=== PATIENT | female | born 1995 | race Two or more races ===

== ENCOUNTER 2020-08-18 09:11 | Emergency (ER) | payer OTHER, SELFPAY ==
[2020-08-18 09:42] VITALS: BP 125/61; PULSE 100; RESP 16; TEMP 37.1; O2SAT 100; BMI 22.8
--- NOTE | 2020-08-18 09:49 | ED_ITS ---
HPI - General Adult General Chief complaint: General Medical Stated complaint: drain removal Time Seen by Provider: 08/18/20 09:46 Source: patient Mode of arrival: ambulatory Limitations: no limitations History of Present Illness HPI narrative: Patient had jarred rose 10 days ago at in [place] comes here for get the drain removed as the drainage is very minimal now and patient spoke to the surgeon advised to have drain removed patient denies any fever or chills wounds look healthy otherwise Related Data Allergies Allergy/AdvReac Type Severity Reaction Status Date / Time No Known Allergies Allergy Unverified 04/10/20 17:25 Review of Systems Review of Systems: Constitutional : No Weight loss, No Fever, No Chills ENT/Mouth : No sore throat, No Rhinorrhea Eyes: No Eye Pain, No Swelling Cardiovascular : No Chest Pain, no palpitations Respiratory : No Cough, No Sputum, no shortness of breath Gastrointestinal : no Nausea, No Vomiting, No Diarrhea, No abdominal Pain, no black stools Genitourinary : No Dysuria, No Urinary Frequency Musculoskeletal : No joint pain, No Myalgias, No Joint Swelling Skin : No Skin Lesions, No rash Neuro : No Weakness, No Numbness, No Dizziness, No Headache Psych : No Anxiety/Panic, No Depression Heme/Lymph: No Bruising, No Lymphadenopathy Endocrine : No Polyuria, No Polydipsia All other systems reviewed and are negative [facility] Past Medical History Surgical History S/P abdominoplasty Social History Social History Smoked in Last 30 Days: No Use of substances other than those prescribed or required for medical reasons: No Advance Directives: No Advance Directives Information Provided: No Physical Exam Vital Signs: Vital Signs: Last Vital Signs Temp 98.8 F 08/18/20 09:42 Pulse 100 08/18/20 09:42 Resp 16 08/18/20 09:42 BP 125/61 08/18/20 09:42 Pulse Ox 100 08/18/20 09:42 Body Mass Index 22.8 Appearance: Alert. Oriented X3. No acute distress. Eyes: Pupils equal, round and reactive to light. ENT: Pharynx normal. Neck: Normal inspection. Neck supple. CVS: Normal heart rate and rhythm. Pulses normal. Respiratory: No respiratory distress. Breath sounds normal. Abdomen: Soft and nontender. Drain present bilaterally on the lower abdomen area with minimal secretions Bowel sounds are present, no mass palpable, no CVA tenderness Skin: Skin warm and dry. Normal skin color. Normal skin turgor. Extremities: No lower extremity edema. Neuro: Oriented X 3. No motor deficit. No sensory deficit. Course Course Course Narrative: Drains were removed easily after removing the sutures wound looks healthy no significant drainage Discharge Plan Discharge Clinical Impression: Encounter for postoperative wound care Patient Disposition: Home, Self-Care Instructions: Care For Your Stitches (ED) Additional Instructions: Local care as advised apply dressing for drainage follow-up with your surgeon
--- NOTE | 2020-08-18 10:03 | PC.NURSE ---
DR JIMÉNEZ AT BEDSIDE AFTER SPEAKING WITH SURGEON RE: DRAIN REMOVAL
== END 2020-08-18 10:29 | disposition home or self-care (01) ==
PROVIDERS: Emergency Provider Internal Medicine; PCP Internal Medicine
DX: Z48.03 Encounter for change or removal of drains (principal); Z48.02 Encounter for removal of sutures
CPT/HCPCS: 99283

== ENCOUNTER 2021-01-27 09:46 | Emergency (ER) | payer OTHER, SELFPAY ==
--- NOTE | ~2021-01-27 | XR_ITS ---
EXAMINATION: XR CHEST CLINICAL INFORMATION: Chest pain COMPARISON: Previous chest x-ray October 2018 TECHNIQUE: Frontal view of the chest was obtained. FINDINGS: No significant abnormality is noted involving the heart, lungs, mediastinum, bony thorax or soft tissues. XR/XR chest 1V IMPRESSION: Unremarkable examination.
[2021-01-27 10:29] VITALS: BP 95/60; PULSE 89; RESP 18; TEMP 36.6; O2SAT 100; BMI 26.5
--- NOTE | 2021-01-27 11:02 | ED.ABDPAIN ---
HPI - Abdominal Pain General Chief Complaint: Abdominal Pain Stated Complaint: epigastric pain Time Seen by Provider: 01/27/21 11:02 Source: patient Mode of arrival: ambulatory Limitations: no limitations Related Data Previous Rx's Medication Instructions Recorded cephalexin 750 mg capsule 750 mg PO BID #14 cap 11/04/20 cromolyn 4 % eye drops 1 drp OPHTHALMIC (EYE) QID #10 ml 11/11/20 Allergies Allergy/AdvReac Type Severity Reaction Status Date / Time No Known Allergies Allergy Unverified 04/10/20 17:25 Physical Exam Vital Signs: Vital Signs: Last Vital Signs Temp 98 F 01/27/21 10:29 Pulse 89 01/27/21 10:29 Resp 18 01/27/21 10:29 BP 95/60 01/27/21 10:29 Pulse Ox 100 01/27/21 10:29 Body Mass Index 26.5 Discharge Plan Discharge Prescriptions: No Action cephalexin 750 mg capsule 750 mg PO BID Qty: 14 RF: 0 cromolyn 4 % drops 1 drp ophthalmic (eye) QID Qty: 10 RF: 2 PMFSH Past Medical History Surgical History S/P abdominoplasty Social History Social History Patient : No
--- NOTE | 2021-01-27 11:11 | ECG_ITS ---
Test Reason : ABDOMINAL PAIN Blood Pressure : / mmHG Vent. Rate : 087 BPM Atrial Rate : 087 BPM P-R Int : 140 ms QRS Dur : 074 ms QT Int : 376 ms P-R-T Axes : 052 064 043 degrees QTc Int : 452 ms Normal sinus rhythm Normal ECG No significant changes when compared with the previous EKG of 12 nov 2018 Referred By: Lina Bergeron Electronically Signed By:LUDA DEE
--- NOTE | 2021-01-27 11:20 | ED.CHESTPAIN ---
HPI - Chest Pain General Chief Complaint: Abdominal Pain Stated Complaint: epigastric pain Time Seen by Provider: 01/27/21 11:03 Source: patient Mode of arrival: ambulatory Limitations: no limitations History of Present Illness HPI narrative: not on OCPs has IUD in MD complaint: chest pain Onset (ago): day(s) (yesterday but has had it in the past) Timing of current episode: constant Prior episodes: Yes Onset: during rest and during exertion Pain location: left chest Pain radiation: none Severity: moderate Quality: sharp Relieving factors: remaining still Exacerbating factors: inspiration, palpation and movement Treatment prior to arrival: none Related Data Previous Rx's Medication Instructions Recorded cephalexin 750 mg capsule 750 mg PO BID #14 cap 11/04/20 cromolyn 4 % eye drops 1 drp OPHTHALMIC (EYE) QID #10 ml 11/11/20 cyclobenzaprine 10 mg PO TID PRN #14 tab 01/27/21 prednisone 40 mg PO DAILY 5 Days #10 tab 01/27/21 Allergies Allergy/AdvReac Type Severity Reaction Status Date / Time No Known Allergies Allergy Unverified 04/10/20 17:25 Review of Systems Review of Systems: Constitutional : No Weight loss, No Fever, No Chills ENT/Mouth : No sore throat, No Rhinorrhea Eyes: No Eye Pain, No Swelling Cardiovascular : pos Chest Pain, no SOB, no Dyspnea on Exertion, No Orthopnea, No Edema, No Palpitations Respiratory : No Cough, No Sputum Gastrointestinal : no Nausea, No Vomiting, No Diarrhea, No abdominal Pain, No Hematochezia, No Melena Genitourinary : No Dysuria, No Urinary Frequency Musculoskeletal : No joint pain, No Myalgias, No Joint Swelling Skin : No Skin Lesions, No rash Neuro : No Weakness, No Numbness, No Dizziness, No Headache Psych : No Anxiety/Panic, No Depression Heme/Lymph: No Bruising, No Lymphadenopathy Endocrine : No Polyuria, No Polydipsia All other systems reviewed and are negative [facility] Past Medical History Attestation statement: The following information was validated with the patient. Medical History Low blood pressure Surgical History S/P abdominoplasty Social History Social History (Updated 01/27/21 @ 11:39 by Lina Bergeron DO) Alcohol intake: never Patient Tobacco Use Status: Never used Tobacco Use of substances other than those prescribed or required for medical reasons: No Advance Directives: Yes Advance Directives Information Provided: Yes Advance Directives on File: No Patient : No Physical Exam Vital Signs: Vital Signs: Last Vital Signs Temp 98.6 F 01/27/21 13:11 Pulse 84 01/27/21 13:11 Resp 18 01/27/21 13:11 BP 106/72 01/27/21 13:11 Pulse Ox 100 01/27/21 13:11 Body Mass Index 26.5 Appearance: Alert. Oriented X3. No acute distress. Eyes: Pupils equal, round and reactive to light. ENT: Pharynx normal. Neck: Normal inspection. Neck supple. CVS: Normal heart rate and rhythm. Pulses normal. Chest: ttp reproduces pain with lower left anterior ribs and left costochondral junction at sternum, pain also with ROM of L arm Respiratory: No respiratory distress. Breath sounds normal. Abdomen: Soft and nontender. bilateral femoral pulses intact Skin: Skin warm and dry. Normal skin color. Normal skin turgor. Extremities: No lower extremity edema. No calf ttp Neuro: Oriented X 3. No motor deficit. No sensory deficit. Course Course Course Narrative: normal workup negative trop and nonischemic trop at 24 hour luis MDM - Chest Pain MDM Narrative Medical decision making narrative: 25 yo female no sig PMH no cardiac risk factors PERC negative symmetric femoral pulses here with 1 day of chest pain that is reproduceable in nature suspect costochondritis at this time will need troponin x 1, EKG, CXR - seems atypical for ACS, doubt PE PERC negative, given symmetric pulses and pain reproduceable dissection unlikely - dispo per results and findings. Lab Data Result diagrams: 01/27/21 12:57 01/27/21 13:09 Labs: Lab Results 01/27/21 01/27/21 01/27/21 Range/Units 12:27 12:57 12:57 WBC 7.9 (4.8-10.8) X10*3/uL RBC 4.58 (4.20-5.50) X10*6/uL Hgb 12.5 (12.0-16.0) g/dl Hct 39.0 (37-47) % MCV 85.2 (80-98) fL MCH 27.3 (27.0-33.0) pg MCHC 32.1 (31.0-35.0) g/dl RDW 14.6 (11.0-16.0) % Plt Count 303 (160-400) X10*3/uL MPV 10.8 (9.4-12.3) fL Immature Gran % (Auto) 0.3 (0.0-0.4) % Neut % (Auto) 54.9 (45-73) % Lymph % (Auto) 37.4 (20-40) % [place] % (Auto) 5.6 (2-11) % Eos % (Auto) 1.5 (0-4) % Baso % (Auto) 0.3 (0-2) % Lymph # (Auto) 3.0 (1.2-4.9) X10*3/uL [place] # (Auto) 0.4 (0.1-1.2) X10*3/uL Eos # (Auto) 0.1 (0.0-0.4) X10*3/uL Baso # (Auto) 0.0 (0.0-0.2) X10*3/uL Abs Immat Gran (auto) 0.02 (0.00-0.03) X10*3/uL Absolute Neuts (auto) 4.4 (2.0-8.3) X10*3/uL Absolute Nucleated RBC 0.000 (0.0-0.012) X10*3/uL Nucleated RBC % (auto) 0.0 (0.0-0.2) /100WBC Sodium (135-145) mmol/L Potassium (3.3-5.1) mmol/L Chloride (96-108) mmol/L Carbon Dioxide (22-29) mmol/L Anion Gap (12-20) BUN (9-16) mg/dL Creatinine (0.5-1.4) mg/dL Estim Creat Clear Calc Estimated GFR Random Glucose (60-115) mg/dL Calcium (8.4-10.2) mg/dL Troponin I High Sens < 3.5 (<3.5-17.0) ng/L COVID-19 (SOLA) Negative (Negative) COVID-19 Clin Com See Note 01/27/21 Range/Units 13:09 WBC (4.8-10.8) X10*3/uL RBC (4.20-5.50) X10*6/uL Hgb (12.0-16.0) g/dl Hct (37-47) % MCV (80-98) fL MCH (27.0-33.0) pg MCHC (31.0-35.0) g/dl RDW (11.0-16.0) % Plt Count (160-400) X10*3/uL MPV (9.4-12.3) fL Immature Gran % (Auto) (0.0-0.4) % Neut % (Auto) (45-73) % Lymph % (Auto) (20-40) % [place] % (Auto) (2-11) % Eos % (Auto) (0-4) % Baso % (Auto) (0-2) % Lymph # (Auto) (1.2-4.9) X10*3/uL [place] # (Auto) (0.1-1.2) X10*3/uL Eos # (Auto) (0.0-0.4) X10*3/uL Baso # (Auto) (0.0-0.2) X10*3/uL Abs Immat Gran (auto) (0.00-0.03) X10*3/uL Absolute Neuts (auto) (2.0-8.3) X10*3/uL Absolute Nucleated RBC (0.0-0.012) X10*3/uL Nucleated RBC % (auto) (0.0-0.2) /100WBC Sodium 138 (135-145) mmol/L Potassium 4.0 (3.3-5.1) mmol/L Chloride 107 (96-108) mmol/L Carbon Dioxide 22 (22-29) mmol/L Anion Gap 13 (12-20) BUN 12 (9-16) mg/dL Creatinine 0.68 (0.5-1.4) mg/dL Estim Creat Clear Calc 110.5 Estimated GFR > 60 Random Glucose 73 (60-115) mg/dL Calcium 9.9 (8.4-10.2) mg/dL Troponin I High Sens (<3.5-17.0) ng/L COVID-19 (SOLA) (Negative) COVID-19 Clin Com ECG Data ECG #1: Attestation: I personally reviewed and interpreted this ECG as follows: ECG interpretation date: 01/27/21 ECG interpretation time: 12:01 Interpretation: Rate: 87 Rhythm: NSR Dickinson: normal Normal P waves. Normal COLIN. Normal QRS complex. ST T wave : normal no RYAN qTC: normal prior studies: no acute ischemia The study has been interpreted contemporaneously by me. . Scores Additional Scores PERC Score: Score: 0 Discharge Plan Discharge Clinical Impression: Acute costochondritis Patient Disposition: Home, Self-Care Instructions: Costochondritis (ED) Additional Instructions: return to ED for any worsening symptoms or concerns NEGATIVE COVID TEST Prescriptions: New cyclobenzaprine 10 mg tablet 10 mg PO TID PRN (Reason: muscle spasm) Qty: 14 RF: 0 prednisone 20 mg tablet 40 mg PO DAILY 5 Days Qty: 10 RF: 0 No Action cephalexin 750 mg capsule 750 mg PO BID Qty: 14 RF: 0 cromolyn 4 % drops 1 drp ophthalmic (eye) QID Qty: 10 RF: 2 Referrals: Elaina Lucero MD [Primary Care Provider] - 2 days Stand Alone Forms: Work/School Release
[2021-01-27 12:49] LABS: COVID-19 Test Negative (Negative); IDNOW Serial# 9DD0AD1C
[2021-01-27 13:02] LABS: MANUAL DIFF FLAG NO
[2021-01-27 13:05] LABS: Basophils Percent Auto 0.3 % (0-2); Eosinophils Absolute Auto 0.1 X10*3/uL (0.0-0.4); Eosinophils Percent Auto 1.5 % (0-4); Hemoglobin 12.5 g/dl (12.0-16.0); Imm Gran Abs Auto 0.02 X10*3/uL (0.00-0.03); Imm Gran Pct Auto 0.3 % (0.0-0.4); Lymphocytes Percent Auto 37.4 % (20-40); Mean Corpuscular HGB Conc 32.1 g/dl (31.0-35.0); Mean Corpuscular Hemoglobin 27.3 pg (27.0-33.0); Mean Corpuscular Volume 85.2 fL (80-98); Mean Platelet Volume 10.8 fL (9.4-12.3); Monocytes Absolute Auto 0.4 X10*3/uL (0.1-1.2); Monocytes Percent Auto 5.6 % (2-11); Neutrophils Absolute Auto 4.4 X10*3/uL (2.0-8.3); Neutrophils Percent Auto 54.9 % (45-73); Platelet Count 303 X10*3/uL (160-400); Red Blood Count 4.58 X10*6/uL (4.20-5.50); Red Cell Distribution Width 14.6 % (11.0-16.0); White Blood Count 7.9 X10*3/uL (4.8-10.8)
[2021-01-27 13:11] VITALS: BP 106/72; PULSE 84; RESP 18; TEMP 37; O2SAT 100
--- NOTE | 2021-01-27 13:14 | PC.NURSE ---
patient a&ox3, classroom monitor nsr 70s, vss, pt c/o lt chest area pain 05/03, pt states yesterday she had nausea and diarrhea as well, currently denies nausea. pt difficult stick- labs drawn, will continue to monitor.
[2021-01-27 13:45] LABS: Anion Gap 13 (12-20); Blood Urea Nitrogen 12 mg/dL (9-16); Calcium 9.9 mg/dL (8.4-10.2); Carbon Dioxide 22 mmol/L (22-29); Chloride 107 mmol/L (96-108); Creatinine Clr Calc Pharmacy 110.5; Estimated Glomerular Filt Rate > 60; Glucose Random 73 mg/dL (60-115); Sodium 138 mmol/L (135-145)
[2021-01-27 13:47] LABS: Troponin-I High Sensitivity < 3.5 ng/L (<3.5-17.0)
== END 2021-01-27 14:08 | disposition home or self-care (01) ==
PROVIDERS: Emergency Provider Emergency Medicine; PCP Internal Medicine
DX: M94.0 Chondrocostal junction syndrome [Tietze] (principal); Z20.822 Contact with and (suspected) exposure to COVID-19
CPT/HCPCS: 36415; 71045; 80048; 84484; 85025; 87635; 93005; 99283; 99284

== ENCOUNTER 2021-12-06 07:39 | Emergency (ER) | payer OTHER, SELFPAY ==
--- NOTE | ~2021-12-06 | CT_ITS ---
EXAMINATION: CT ABDOMEN AND PELVIS WITHOUT CONTRAST CLINICAL INFORMATION: Nausea and vomiting. Diffuse abdominal pain. COMPARISON: None TECHNIQUE: Multidetector volumetric imaging was performed from the superior aspect of the liver through the pubic symphysis. Sagittal and coronal reformatted images were obtained on the technologist's workstation. This CT examination was performed using dose optimization techniques as appropriate, variously including the following: *Automated exposure control *Adjustment of mA and/or kV according to patient size (this includes techniques or standardized protocols for targeted exams where dose is matched to indication/reason for exam; i.e. extremities or head) *Use of iterative reconstruction technique DLP: 439 mGy-cm FINDINGS: LUNG BASES: The lung bases are clear. The heart size is normal. LIVER, GALLBLADDER, AND BILIARY TREE: The liver is normal in size, shape, and attenuation. No focal hepatic lesion or biliary ductal dilatation is present. The gallbladder is unremarkable with no evidence of radiopaque gallstones, gallbladder wall thickening, or obvious pericholecystic inflammatory changes. PANCREAS: Unremarkable. SPLEEN: Unremarkable. ADRENAL GLANDS: Unremarkable. KIDNEYS AND URETERS: The kidneys are normal in size, shape, and attenuation. No hydronephrosis, hydroureter, or calculi seen. No perinephric stranding. BLADDER: Unremarkable. GASTROINTESTINAL TRACT: There is scattered stool in the colon without colonic distention. No mural thickening, free air or free fluid seen. The small bowel loops are normal caliber. No inflammatory process seen. The appendix is normal caliber. ABDOMINAL WALL: There is a small umbilical hernia containing fat. LYMPH NODES: Normal. VASCULAR: Unremarkable. PELVIC VISCERA: The uterus is retroverted with an IUD in the endometrial canal in correct position. There is fat stranding in bilateral ischiorectal fossa with peculiar central hypodensity and surrounding capsule likely fat necrosis OSSEOUS STRUCTURES: No lytic or sclerotic process seen. CT/CT abdomen pelvis wo con IMPRESSION: No acute intra-abdominal process seen. Mild constipation. Bilateral ischiorectal fat stranding question fat necrosis versus old inflammatory process. Correlate with clinical exam. Fleischner guidelines were followed.
[2021-12-06 07:43] VITALS: BP 114/78; PULSE 138; RESP 19; TEMP 37.5; O2SAT 97; BMI 25.6
[2021-12-06 08:11] LABS: COVID-19 Test Negative (Negative); IDNOW Serial# 16C4AD1C; Influenza A Negative (Negative); Influenza B2 Negative (Negative)
--- NOTE | 2021-12-06 11:05 | ED_ITS ---
HPI - General Adult General Chief complaint: General Medical Stated complaint: abd pain headache fever Time Seen by Provider: 12/06/21 11:05 Source: patient Mode of arrival: ambulatory Limitations: no limitations History of Present Illness HPI narrative: 26 y/o female with history of constipation, history of tummy tuck in July who is presenting to the ER with nausea, vomiting and upper abdominal pain as well a s nasal congestion and headache that started yesterday. She reports aching and cramping abdominal pain that comes and goes. She last vomited last night and is no longer nauseated. She denies fever, chills, cough, or known sick contacts. MD complaint: vomiting, upper abdominal pain Onset (ago): day(s) (1) Location: abdomen Radiation: non-radiation Severity: moderate Severity scale (1-10): 5 Quality: aching Pain Consistency: intermittent Relieving factors: none Exacerbating factors: none Associated symptoms: headaches, loss of appetite, malaise and nausea/vomiting Treatments prior to arrival: none Related Data Previous Rx's Medication Instructions Recorded cephalexin 750 mg capsule 750 mg PO BID #14 cap 11/04/20 cromolyn 4 % eye drops 1 drp OPHTHALMIC (EYE) QID #10 ml 11/11/20 cyclobenzaprine 10 mg tablet 10 mg PO TID PRN #14 tab 01/27/21 prednisone 20 mg tablet 40 mg PO DAILY 5 Days #10 tab 01/27/21 docusate sodium 100 mg capsule 100 mg PO BID #30 cap 12/06/21 (Colace) ondansetron 4 mg disintegrating 4 mg PO Q8H PRN #10 tab 12/06/21 tablet Allergies Allergy/AdvReac Type Severity Reaction Status Date / Time No Known Allergies Allergy Unverified 04/10/20 17:25 Review of Systems Review of Systems: Constitutional: No Fever, No Chills ENT/Mouth: No sore throat, No Rhinorrhea, + Nasal congestion Cardiovascular: No Chest Pain, No SOB, No Orthopnea, No Edema Respiratory: No Cough, No Sputum, No Wheezing, No dyspnea Gastrointestinal: + Nausea, + Vomiting, No Diarrhea, + abdominal Pain, No Hematochezia, No Melena Genitourinary: No Dysuria, No Urinary Frequency, No Hematuria Musculoskeletal: No joint pain, No Myalgias Skin: No Skin Lesions, No rash Neuro: + Weakness, No Numbness, No Dizziness, + Headache Psych: No Anxiety/Panic, No Depression Heme/Lymph: No Bruising, No Lymphadenopathy PMFSH Past Medical History Medical History Low blood pressure Surgical History S/P abdominoplasty Social History Social History (Updated 01/27/21 @ 11:39 by Lina Bergeron DO) Alcohol intake: never Patient Tobacco Use Status: Never used Tobacco Advance Directives: No Advance Directives Information Provided: Yes Physical Exam ED Vital Signs: Vital Signs - 24 hr 12/06/21 07:43 12/06/21 11:06 12/06/21 14:29 Temperature 99.5 F 98.4 F Pulse Rate 138 H 129 H Respiratory Rate 19 16 18 Blood Pressure 114/78 133/55 L Pulse Oximetry 97 100 12/06/21 14:33 Temperature Pulse Rate 109 H Respiratory Rate 17 Blood Pressure 100/63 Pulse Oximetry 98 BMI result Body Mass Index 25.6 Appearance: Alert. Oriented X3. No acute distress. Eyes: Pupils equal, round and reactive to light. ENT: Pharynx normal. Nasal congestion with clear discharge Neck: Normal inspection. Neck supple. CVS: Normal heart rate and rhythm. Pulses normal. Respiratory: No respiratory distress. Breath sounds normal. Abdomen: Soft with mild epigastric tenderness, no rebound or guarding, no RUQ tenderness, normal +BS x4 Skin: Skin warm and dry. Normal skin color. Normal skin turgor. No rashes. Extremities: No lower extremity edema. Neuro: Oriented X 3. Grossly normal. Course Course Course Narrative: 26 y/o female presents to the ER with N/V abdominal pain and congestion x1 day. She is tachycardic on arrival. No chest pain or SOB, nontoxic appearing. Will pl an to check basic labs, hydrate and treat headache with Toradol. will check Flu and COVID as her symptoms seem to be viral. Reevaluation(s) Reevaluation #1: Who did flu were negative. Lab [place] [address]. Urinalysis negative for infection. Will get CT scan of the abdomen for further evaluation. Reevaluation #2: CT of the abdomen showing no acute intra-abdominal process, mild constipation. She is tolerating p.o. and feeling better. Heart rate improved to low in 100s. She is stable for discharge home with supportive care, likely viral gastroenteritis. Medical Decision Making Lab Data Result diagrams: 12/06/21 11:37 12/06/21 11:37 Labs: Lab Results 12/06/21 12/06/21 12/06/21 Range/Units 07:51 07:51 11:37 WBC 20.2 H (4.8-10.8) X10*3/uL RBC 4.73 (4.20-5.50) X10*6/uL Hgb 12.9 (12.0-16.0) g/dl Hct 39.5 (37.0-47.0) % MCV 83.5 (80.0-98.0) fL MCH 27.3 (27.0-33.0) pg MCHC 32.7 (31.0-35.0) g/dl RDW 14.4 (11.0-16.0) % Plt Count 282 (160-400) X10*3/uL MPV 10.6 (9.4-12.3) fL Immature Gran % (Auto) 0.4 (0.0-0.4) % Neut % (Auto) 90.8 H (45-73) % Lymph % (Auto) 4.5 L (20-40) % [place] % (Auto) 3.9 (2-11) % Eos % (Auto) 0.2 (0-4) % Baso % (Auto) 0.2 (0-2) % Lymph # (Auto) 0.9 L (1.2-4.9) X10*3/uL [place] # (Auto) 0.8 (0.1-1.2) X10*3/uL Eos # (Auto) 0.0 (0.0-0.4) X10*3/uL Baso # (Auto) 0.0 (0.0-0.2) X10*3/uL Abs Immat Gran (auto) 0.09 H (0.00-0.03) X10*3/uL Absolute Neuts (auto) 18.4 H (2.0-8.3) x10*3/uL Absolute Nucleated RBC 0.000 (0.0-0.012) X10*3/uL Nucleated RBC % (auto) 0.0 (0.0-0.2) /100WBC Smear Tech's Comments VERIFIED Sodium (135-145) mmol/L Potassium (3.3-5.1) mmol/L Chloride (96-108) mmol/L Carbon Dioxide (22-29) mmol/L Anion Gap (12-20) BUN (9-16) mg/dL Creatinine (0.5-1.4) mg/dL Estim Creat Clear Calc Estimated GFR Random Glucose (60-115) mg/dL Calcium (8.4-10.2) mg/dL Total Bilirubin (0.0-1.0) mg/dL AST (5-31) U/L ALT (0-31) U/L Alkaline Phosphatase (39-117) U/L Total Protein (6.5-8.0) g/dL Albumin (3.5-5.0) g/dL Beta HCG, Quant mIU/mL Urine Color Urine Appearance Urine pH (5.0-8.0) Ur Specific [place] (1.005-1.025) Urine Protein (NEG-TRACE) MG/DL Urine Glucose (UA) (NEG) MG/DL Urine Ketones (NEG) MG/DL Urine Blood (NEG) Urine Nitrite (NEG) Ur Leukocyte Esterase (NEG) COVID-19 ([facility]A) Negative (Negative) COVID-19 Clin Com See Note Influenza Type A (KIZZY) Negative (Negative) Influenza Type B (KIZZY) Negative (Negative) Influenza A & B Note See Note 12/06/21 12/06/21 Range/Units 11:37 13:31 WBC (4.8-10.8) X10*3/uL RBC (4.20-5.50) X10*6/uL Hgb (12.0-16.0) g/dl Hct (37.0-47.0) % MCV (80.0-98.0) fL MCH (27.0-33.0) pg MCHC (31.0-35.0) g/dl RDW (11.0-16.0) % Plt Count (160-400) X10*3/uL MPV (9.4-12.3) fL Immature Gran % (Auto) (0.0-0.4) % Neut % (Auto) (45-73) % Lymph % (Auto) (20-40) % [place] % (Auto) (2-11) % Eos % (Auto) (0-4) % Baso % (Auto) (0-2) % Lymph # (Auto) (1.2-4.9) X10*3/uL [place] # (Auto) (0.1-1.2) X10*3/uL Eos # (Auto) (0.0-0.4) X10*3/uL Baso # (Auto) (0.0-0.2) X10*3/uL Abs Immat Gran (auto) (0.00-0.03) X10*3/uL Absolute Neuts (auto) (2.0-8.3) x10*3/uL Absolute Nucleated RBC (0.0-0.012) X10*3/uL Nucleated RBC % (auto) (0.0-0.2) /100WBC Smear Tech's Comments Sodium 136 (135-145) mmol/L Potassium 4.0 (3.3-5.1) mmol/L Chloride 105 (96-108) mmol/L Carbon Dioxide 23 (22-29) mmol/L Anion Gap 12 (12-20) BUN 10 (9-16) mg/dL Creatinine 0.74 (0.5-1.4) mg/dL Estim Creat Clear Calc 99.0 Estimated GFR > 60 Random Glucose 106 (60-115) mg/dL Calcium 9.7 (8.4-10.2) mg/dL Total Bilirubin 0.5 (0.0-1.0) mg/dL AST 20 (5-31) U/L ALT 24 (0-31) U/L Alkaline Phosphatase 65 (39-117) U/L Total Protein 7.8 (6.5-8.0) g/dL Albumin 4.4 (3.5-5.0) g/dL Beta HCG, Quant < 2 mIU/mL Urine Color YELLOW Urine Appearance HAZY Urine pH 6.0 (5.0-8.0) Ur Specific [place] 1.025 (1.005-1.025) Urine Protein NEG (NEG-TRACE) MG/DL Urine Glucose (UA) NEG (NEG) MG/DL Urine Ketones NEG (NEG) MG/DL Urine Blood NEG (NEG) Urine Nitrite NEG (NEG) Ur Leukocyte Esterase NEG (NEG) COVID-19 (SOLA) (Negative) COVID-19 Clin Com Influenza Type A (KIZZY) (Negative) Influenza Type B (KIZZY) (Negative) Influenza A & B Note Critical Care Time Critical Care Time Critical Care Time: No Discharge Plan Discharge Clinical Impression: Viral illness, Constipation Patient Disposition: Home, Self-Care Instructions: Constipation (DC), Viral Syndrome (ED) Additional Instructions: You lab workup today showed elevated white blood cell count which can be due to your vomiting. Your urine test was negative for infection and . You most likely have a viral GI bug also known as gastroenteritis. Treatment is supportive care, symptoms usually resolve on their own in 48-72 hours. Recommend rest and plenty of oral hydration. Stick to a bland diet like soup and toast while you are not feeling well. Take the prescribed medication as needed for nausea. Recommend over the counter Miralax daily. Follow up with your doctor as needed. If you develop new or worsening symptoms call 911 or come back to the ER for further evaluation. Prescriptions: New ondansetron 4 mg tablet,disintegrating 4 mg PO Q8H PRN (Reason: nausea and vomiting) Qty: 10 0RF docusate sodium [Colace] 100 mg capsule 100 mg PO BID Qty: 30 0RF No Action cephalexin 750 mg capsule 750 mg PO BID Qty: 14 0RF cromolyn 4 % drops 1 drp ophthalmic (eye) QID Qty: 10 2RF cyclobenzaprine 10 mg tablet 10 mg PO TID PRN (Reason: muscle spasm) Qty: 14 0RF prednisone 20 mg tablet 40 mg PO DAILY 5 Days Qty: 10 0RF
[2021-12-06 11:06] VITALS: BP 133/55; PULSE 129; RESP 16; TEMP 36.9; O2SAT 100
[2021-12-06 11:43] LABS: Basophils Percent Auto 0.2 % (0-2); Eosinophils Percent Auto 0.2 % (0-4); Hematocrit 39.5 % (37.0-47.0); Hemoglobin 12.9 g/dl (12.0-16.0); Imm Gran Abs Auto 0.09 X10*3/uL (0.00-0.03); Imm Gran Pct Auto 0.4 % (0.0-0.4); Lymphocytes Absolute Auto 0.9 X10*3/uL (1.2-4.9); Lymphocytes Percent Auto 4.5 % (20-40); MANUAL DIFF FLAG SCAN; Mean Corpuscular HGB Conc 32.7 g/dl (31.0-35.0); Mean Corpuscular Hemoglobin 27.3 pg (27.0-33.0); Mean Corpuscular Volume 83.5 fL (80.0-98.0); Mean Platelet Volume 10.6 fL (9.4-12.3); Monocytes Absolute Auto 0.8 X10*3/uL (0.1-1.2); Monocytes Percent Auto 3.9 % (2-11); Neutrophils Absolute Auto 18.4 x10*3/uL (2.0-8.3); Neutrophils Percent Auto 90.8 % (45-73); Platelet Count 282 X10*3/uL (160-400); Red Blood Count 4.73 X10*6/uL (4.20-5.50); Red Cell Distribution Width 14.4 % (11.0-16.0); SCAN SMEAR FLAG 1; White Blood Count 20.2 X10*3/uL (4.8-10.8)
[2021-12-06] MEDS: 0.9 % Sodium Chloride 1,000 ML 999 ML IVCONT (11:50)
[2021-12-06 11:59] LABS: Alanine Aminotransferase 24 U/L (0-31); Albumin Level 4.4 g/dL (3.5-5.0); Alkaline Phosphatase 65 U/L (39-117); Anion Gap 12 (12-20); Aspartate Amino Transferase 20 U/L (5-31); Bilirubin Total 0.5 mg/dL (0.0-1.0); Blood Urea Nitrogen 10 mg/dL (9-16); Calcium 9.7 mg/dL (8.4-10.2); Carbon Dioxide 23 mmol/L (22-29); Chloride 105 mmol/L (96-108); Estimated Glomerular Filt Rate > 60; Glucose Random 106 mg/dL (60-115); Sodium 136 mmol/L (135-145); Total Protein 7.8 g/dL (6.5-8.0)
[2021-12-06 12:04] LABS: SLIDE REVIEW VERIFIED
[2021-12-06] MEDS: Ketorolac Tromethamine 30 MG/ML VIAL IVPUSH (12:07)
[2021-12-06 12:08] LABS: HCG Quantitative < 2 mIU/mL
[2021-12-06 13:37] LABS: Appearance Urine HAZY; Color Urine YELLOW; Glucose Urine UA NEG (NEG); Leukocyte Esterase Urine NEG (NEG); Nitrite Urine NEG (NEG); Specific Gravity - Urine 1.025 (1.005-1.025); Urine Blood NEG (NEG); Urine Ketones NEG (NEG); Urine Protein NEG (NEG-TRACE)
[2021-12-06 14:29] VITALS: RESP 18
[2021-12-06 14:33] VITALS: BP 100/63; PULSE 109; RESP 17; O2SAT 98
== END 2021-12-06 15:30 | disposition home or self-care (01) ==
PROVIDERS: Physician Assistant; Emergency Provider Emergency Medicine; PCP Psychiatry & Neurology Neurology
DX: B34.9 Viral infection, unspecified (principal); K59.00 Constipation, unspecified; Z20.822 Contact with and (suspected) exposure to COVID-19
CPT/HCPCS: 36415; 74176; 80053; 81003; 84702; 85025; 87502; 87635; 96361; 96374; 99284; J1885

== ENCOUNTER 2022-01-06 09:27 | Emergency (ER) | payer OTHER, SELFPAY ==
[2022-01-06 10:11] VITALS: BP 107/69; PULSE 108; RESP 19; TEMP 36.6; O2SAT 98; BMI 26.9
[2022-01-06 10:42] LABS: Appearance Urine HAZY; Color Urine YELLOW; Glucose Urine UA NEG (NEG); Leukocyte Esterase Urine TRACE (NEG); Nitrite Urine NEG (NEG); Specific Gravity - Urine >= 1.030 (1.005-1.025); UACC Culture Trigger NO; Urine Blood TRACE (NEG); Urine Ketones NEG (NEG); Urine Protein NEG (NEG-TRACE)
[2022-01-06 10:44] LABS: UPreg QC Valid YES; Urine Pregnancy NEGATIVE (NEGATIVE)
[2022-01-06 10:51] LABS: Bacteria Urine TRACE /LPF; IDNOW Serial# 08D9AD1C; RBC Urine 0-2 /HPF (0); Squamous Epithelial Cell Urine 1+ /LPF; Strep A Nucleic Acid Negative (Negative); UACC CULT YES
[2022-01-06 10:52] LABS: Mucus Urine 2+ /LPF
[2022-01-06 10:55] LABS: COVID-19 Test Negative (Negative); IDNOW Serial# 9DB6401D; Influenza A Negative (Negative); Influenza B2 Negative (Negative)
--- NOTE | 2022-01-06 11:28 | ED_ITS ---
HPI - General Adult General Chief complaint: General Medical Stated complaint: sore throat migraine back pain Time Seen by Provider: 01/06/22 11:19 Source: patient Mode of arrival: ambulatory Limitations: no limitations History of Present Illness HPI narrative: Patient presents to the emergency department for multiple complaints. She states that yesterday she was seen by her [employer] and was diagnosed with u rinary tract infection and yeast infection, was having fevers, she was given a prescription for Diflucan and Bactrim which she began yesterday. She states since last night she developed a headache, sore throat, and generalized body aches. Has not tried any [id number] medications for her symptoms. States that she has been vaccinated for COVID-19. Denies any known exposure. Denies vision changes, neck pain or stiffness, chest pain, palpitations or shortness of breath, difficulty breathing, nausea, vomiting, abdominal pain, hematuria, numbness or tingling of the extremities, generalized weakness. Related Data Previous Rx's Medication Instructions Recorded cephalexin 750 mg capsule 750 mg PO BID #14 caps 11/04/20 cromolyn 4 % eye drops 1 drp ophthalmic (eye) QID #10 mL 11/11/20 cyclobenzaprine 10 mg tablet 10 mg PO TID PRN muscle spasm #14 01/27/21 tabs prednisone 20 mg tablet 40 mg PO DAILY 5 days #10 tabs 01/27/21 docusate sodium 100 mg capsule 100 mg PO BID #30 caps 12/06/21 (Colace) ondansetron 4 mg disintegrating 4 mg PO Q8H PRN nausea and 12/06/21 tablet vomiting #10 tabs Allergies Allergy/AdvReac Type Severity Reaction Status Date / Time No Known Allergies Allergy Unverified 04/10/20 17:25 Review of Systems Review of Systems: Constitutional: Positive fever No weakness or fatigue. Skin: No rash or itching. ENT: Positive sore throat Cardiovascular: No chest pain, chest pressure or chest discomfort. No palpitations or pedal edema. Respiratory: No shortness of breath, cough or sputum production. Gastrointestinal: No anorexia, nausea, vomiting or diarrhea. No abdominal pain Genitourinary: Positive burning micturition. No urinary frequency or incontinence. Musculoskeletal: No muscle pain, back pain, joint pain or stiffness. Neurologic: Positive headache. No numbness. No tingling. Psychiatric: No depression or anxiety. Yes all other systems are reviewed and are negative [facility] Past Medical History Attestation statement: The following information was validated with the patient. Source: old records reviewed Medical History Low blood pressure Surgical History S/P abdominoplasty Social History Social History Alcohol intake: never Patient Tobacco Use Status: Never used Tobacco Advance Directives: No Advance Directives Information Provided: No Physical Exam ED Vital Signs: Vital Signs - 24 hr 01/06/22 10:11 Temperature 98 F Pulse Rate 108 H Respiratory Rate 19 Blood Pressure 107/69 Pulse Oximetry 98 Oxygen Delivery Method Room Air BMI result Body Mass Index 26.9 Vital signs have been reviewed as normal and appeared to be correct. Blood pressure normal.? Heart rate normal.? Respiration rate normal. Temperature normal.? Oxygen saturation normal. Appearance: Alert.?Oriented to person, place and time. No acute distress.?Normal affect. Eyes: Pupils equal, round and reactive to light.? ENT: Pharynx with mild erythema, no exudate, or adenopathy.??TM normal bilaterally. Neck: Normal inspection.? Neck supple.??Full AROM. No cervical adenopathy CVS: Heart sounds normal. Normal heart rate and rhythm.? Pulses normal.?? Respiratory: No respiratory distress.? Lung sounds clear to auscultation bilaterally?? Abdomen: Soft and non-tender. Normoactive bowel sounds. .?? Skin: Skin warm and dry.? Normal skin color.? ? Extremities: No lower extremity edema.?? Neuro: Moves all extremities spontaneously. Sensation intact bilaterally. No motor deficits. Ambulates with normal steady gait. Course Course Course Narrative: Patient is a 26-year-old female currently being treated for a urinary tract infection and vaginal yeast infection presenting to the emergency department with less than 1 day a viral symptoms including sore throat, body aches, and headache. COVID-19, influenza, and strep testing are negative. No meningismus. No neurological deficits. She is mildly tachycardic 108, afebrile. Has not trialed any [id number] medications. Suspect symptoms to be viral in nature, advised to repeat COVID testing in a couple of days should her symptoms persist. Advised Tylenol and ibuprofen to be used as needed for fever and pain, Chloraseptic throat spray and throat lozenges for sore throat. Discussed reasons return back to the emergency department. All questions were answered and she was discharged home in stable condition. Advised to follow-up with her primary care provider as needed Medical Decision Making Medical Records Medical records reviewed: Yes I reviewed the patient's medical records. Lab Data Lab results reviewed: Yes I reviewed the patient's lab results. Labs: Lab Results 01/06/22 01/06/22 01/06/22 Range/Units 10:27 10:27 10:27 Urine Color Urine Appearance Urine pH (5.0-8.0) Ur Specific [place] (1.005-1.025) Urine Protein (NEG-TRACE) MG/DL Urine Glucose (UA) (NEG) MG/DL Urine Ketones (NEG) MG/DL Urine Blood (NEG) Urine Nitrite (NEG) Ur Leukocyte Esterase (NEG) Urine RBC (0) /HPF Urine WBC (0-4) /HPF Ur Squamous Epith Cells /LPF Urine Bacteria /LPF Urine Mucus /LPF Urine Test (NEGATIVE) COVID-19 (SOLA) Negative (Negative) COVID-19 Clin Com See Note Influenza Type A (KIZZY) Negative (Negative) Influenza Type B (KIZZY) Negative (Negative) Influenza A & B Note See Note S. pyogenes GrpA KIZZY Negative (Negative) 01/06/22 01/06/22 Range/Units 10:27 10:27 Urine Color YELLOW Urine Appearance HAZY Urine pH 6.0 (5.0-8.0) Ur Specific [place] >= 1.030 H (1.005-1.025) Urine Protein NEG (NEG-TRACE) MG/DL Urine Glucose (UA) NEG (NEG) MG/DL Urine Ketones NEG (NEG) MG/DL Urine Blood TRACE (NEG) Urine Nitrite NEG (NEG) Ur Leukocyte Esterase TRACE H (NEG) Urine RBC 0-2 (0) /HPF Urine WBC 5-9 H (0-4) /HPF Ur Squamous Epith Cells 1+ /LPF Urine Bacteria TRACE /LPF Urine Mucus 2+ /LPF Urine Test NEGATIVE (NEGATIVE) COVID-19 (SOLA) (Negative) COVID-19 Clin Com Influenza Type A (KIZZY) (Negative) Influenza Type B (KIZZY) (Negative) Influenza A & B Note S. pyogenes GrpA KIZZY (Negative) Discharge Plan Discharge Clinical Impression: Viral syndrome Patient Disposition: Home, Self-Care Instructions: Viral Syndrome (ED) Additional Instructions: Your COVID and strep throat testing today were negative. If you continue to have symptoms over the next couple of days you should consider repeating your COVID test. You can take ibuprofen 200 mg, 3 tablets (600mg) every 6-8 hours as needed for pain, in addition to Tylenol 500 mg, 2 tablets (1,000mg) every 4-6 hours as needed for pain, but not to exceed 3 doses daily (3,000mg).? [id number]-[id number] throat spray and throat lozenges may help with your pain. You may return to the emergency department any new or worsening symptoms or concerns. Follow-up with your [employer] regarding your urinary tract infection and yeast infection. Prescriptions: No Action cephalexin 750 mg capsule 750 mg PO BID Qty: 14 0RF cromolyn 4 % drops 1 drp ophthalmic (eye) QID Qty: 10 2RF cyclobenzaprine 10 mg tablet 10 mg PO TID PRN (Reason: muscle spasm) Qty: 14 0RF prednisone 20 mg tablet 40 mg PO DAILY 5 Days Qty: 10 0RF ondansetron 4 mg tablet,disintegrating 4 mg PO Q8H PRN (Reason: nausea and vomiting) Qty: 10 0RF docusate sodium [Colace] 100 mg capsule 100 mg PO BID Qty: 30 0RF Stand Alone Forms: Work/School Release Interventions: ED Discharge Assessment Last Done: 01/06/22 11:56 Discharge Date/Time: 01/06/22 11:57
[2022-01-06] MEDS: Ibuprofen 600 MG TABLET PO (11:43)
== END 2022-01-06 11:57 | disposition home or self-care (01) ==
PROVIDERS: Emergency Provider Emergency Medicine; PCP Internal Medicine
DX: B34.9 Viral infection, unspecified (principal); N39.0 Urinary tract infection, site not specified; B37.3 Candidiasis of vulva and vagina; Z20.822 Contact with and (suspected) exposure to COVID-19
CPT/HCPCS: 81001; 81025; 87086; 87502; 87635; 87651; 99283; 99284

== ENCOUNTER 2022-04-08 15:01 | Emergency (ER) | payer OTHER, SELFPAY ==
--- NOTE | ~2022-04-08 | XR_ITS ---
EXAMINATION: XR CHEST CLINICAL INFORMATION: Cough COMPARISON: 01/27/2021 TECHNIQUE: 2 views of the chest were obtained. FINDINGS: No significant abnormality is noted involving the heart, lungs, mediastinum, bony thorax or soft tissues. XR/XR chest 2V IMPRESSION: Unremarkable examination.
[2022-04-08 15:53] VITALS: BP 128/75; PULSE 106; RESP 18; TEMP 36.8; O2SAT 100; BMI 27.4
--- NOTE | 2022-04-08 15:56 | ECG_ITS ---
Test Reason : chest burning Blood Pressure : / mmHG Vent. Rate : 108 BPM Atrial Rate : 108 BPM P-R Int : 132 ms QRS Dur : 076 ms QT Int : 324 ms P-R-T Axes : 062 055 028 degrees QTc Int : 434 ms Sinus tachycardia Otherwise normal ECG When compared with ECG of 27-JAN-2021 11:47, No significant change was found Referred By: Generic ED Physician Electronically Signed By:BAILEY ASHBY
[2022-04-08 16:19] LABS: Appearance Urine Clear; Color Urine Yellow; Glucose Urine UA Negative (Negative); Leukocyte Esterase Urine Small (1+) (Negative); Nitrite Urine Negative (Negative); PH 5.5 (5.0-9.0); UMIC TRIGGER UACC YES; Urine Blood Negative (Negative); Urine Ketones Trace mg/dL (Negative); Urine Protein Negative (Neg-Trace)
[2022-04-08 16:28] LABS: Bacteria Urine 2+ (None Seen); Hyaline Casts Urine 0-2 /LPF (0-2); RBC Urine 0-2 /HPF (0-2); UACC Culture Trigger YES
[2022-04-08 16:35] LABS: COVID-19 Test Negative (Negative)
[2022-04-08 17:56] LABS: UPreg QC Valid YES; Urine Pregnancy NEGATIVE (NEGATIVE)
--- NOTE | 2022-04-08 18:07 | ED.URI ---
HPI - URI/Sore Throat General Chief Complaint: Upper Respiratory Symptoms Stated Complaint: Burn in chest, coughing blood Time Seen by Provider: 04/08/22 17:38 Source: patient Mode of arrival: ambulatory Limitations: no limitations History of Present Illness HPI Narrative: 26-year-old female with no significant past medical history presenting with fever, cough, sore throat, headache, nausea, body aches for 2 days. Reports fever of 101.5 yesterday, and coughing up yellow phlegm speckled with blood. Also reports an intense burning sensation in her chest when she coughs. Denies chest pressure. Denies dizziness, abdominal pain, vomiting, diarrhea, constipation, dysuria. Reports 2-year-old child recently at [facility] and now at home with an ear infection as well as pneumonia. Otherwise denies any other sick contacts. Denies any recent travel. MD elicited complaint: fever, cough and nasal congestion Onset (ago): day(s) Consistency: constant Description of mucous: yellow, purulent and bloody Able to tolerate fluids by mouth: Yes Relieving factors: NSAID, cough suppressant and other (Vicks) Context: sick contacts Associated symptoms: fever, chills, voice changes, headache, rhinorrhea, cough and nausea Treatments prior to arrival: ibuprofen and cold medicine Related Data Previous Rx's Medication Instructions Recorded cephalexin 750 mg capsule 750 mg PO BID #14 caps 11/04/20 cromolyn 4 % eye drops 1 drp ophthalmic (eye) QID #10 mL 11/11/20 cyclobenzaprine 10 mg tablet 10 mg PO TID PRN muscle spasm #14 01/27/21 tabs prednisone 20 mg tablet 40 mg PO DAILY 5 days #10 tabs 01/27/21 docusate sodium 100 mg capsule 100 mg PO BID #30 caps 12/06/21 (Colace) ondansetron 4 mg disintegrating 4 mg PO Q8H PRN nausea and 12/06/21 tablet vomiting #10 tabs azithromycin 250 mg tablet See Rx Instructions PO .COMPLEX #6 04/08/22 tabs codeine 10 mg-guaifenesin 100 mg/5 5 ml PO Q6H PRN cold symptoms #120 04/08/22 mL oral liquid (Guaifenesin AC) mL cyclobenzaprine 10 mg tablet 10 mg PO Q8H #14 tabs 04/08/22 Allergies Allergy/AdvReac Type Severity Reaction Status Date / Time No Known Allergies Allergy Unverified 04/10/20 17:25 Review of Systems Review of Systems: Constitutional : + Fever, + Chills, No Fatigue, No Malaise ENT/Mouth : No Hearing loss, No Ear Pain, + Nasal Congestion, No Sinus Pain, No Hoarseness, + sore throat, + Rhinorrhea, No Swallowing Difficulty Eyes: + Eye Pain, No Swelling, No Redness, No Foreign Body, No Discharge, No Vision Changes Cardiovascular : No Chest Pain, No SOB, No Dyspnea on Exertion, No Orthopnea, No Edema, No Palpitations Respiratory : + Cough, +chest pain with coughing, + Sputum, No Wheezing, No Smoke Exposure, No Dyspnea Gastrointestinal : + Nausea, No Vomiting, No Diarrhea, No Constipation, No abdominal Pain, No Hematochezia, No Melena Genitourinary : no irregular bleeding, No Dysuria, No Urinary Frequency, No Hematuria, No Urinary Incontinence, No Urgency, No Flank Pain, No Urinary Flow Changes, No Hesitancy Musculoskeletal : No joint pain, + Myalgias, No Joint Swelling Skin : No Skin Lesions, No rash Neuro : No Weakness, No Numbness, No Paresthesias, No Loss of Consciousness, No Dizziness, + Headache Psych : No Anxiety/Panic, No Depression, No SI/HI/AH/VH, No Social Issues, Heme/Lymph: No Bruising, No Bleeding,No Lymphadenopathy Endocrine : No Polyuria, No Polydipsia, No Temperature Intolerance Yes all other systems are reviewed and are negative [facility] Past Medical History Attestation statement: The following information was validated with the patient. Source: old records reviewed and nursing notes reviewed Medical History Low blood pressure Surgical History S/P abdominoplasty Social History Social History Alcohol intake: never Patient Tobacco Use Status: Never used Tobacco Advance Directives: No Advance Directives Information Provided: No Physical Exam Vital Signs: Vital Signs: Last Vital Signs Temp 98.2 F 04/08/22 15:53 Pulse 106 H 04/08/22 15:53 Resp 18 04/08/22 15:53 BP 128/75 04/08/22 15:53 Pulse Ox 100 04/08/22 15:53 O2 Del Method 04/08/22 15:53 BMI result Body Mass Index 27.4 Vital signs reviewed and patient's blood pressure 120/75. Pulse 106. Respiration 18. Temperature 98.6 degrees. Oxygen 100% on room air. Appearance: Alert. Oriented X3. No acute distress. Head: Normal external exam. Normocephalic. Atraumatic. Eyes: PERRLA. EOMI. Conjunctiva and sclera normal. Eyelids normal. ENT: Pharynx normal, mild postnasal drip noted. Uvula midline. Moist mucous membranes. Mild serous effusions of right TM, no bulging or redness of bilateral TMs. EAC WNL. No trismus/drooling/stridor. Patient tolerating secretions well. Neck: Normal inspection. Neck supple. FROM. No meningeal signs noted. Nontender. CVS: Normal heart rate and rhythm. Respiratory: No respiratory distress. No wheezes, rales, rhonchi noted on auscultation. Reporting burning chest pain on inspiration. No signs of trauma. No crepitus is noted. Skin: Skin warm and dry. Normal skin color. Normal skin turgor. No rashes/lesions/lacerations noted. Extremities: Extremities exhibit normal range of motion. Extremities nontender. Neuro: Oriented X 3. No motor deficit. No sensory deficit. Reflexes normal. Normal steady gait. No focal neuro deficits noted. Course Course Course Narrative: 26-year-old female with no significant past medical history presenting with fever, cough, sore throat, headache, nausea, body aches for 2 days. Reports fever of 101.5 yesterday, and coughing up yellow phlegm speckled with blood. Also reports an intense burning sensation in her chest when she coughs. On exam, afebrile, vital signs stable, lungs clear to auscultation bilaterally, no respiratory distress, no tonsillar enlargement or exudates, mild serous effusion of right TM. COVID negative. Will chest x-ray due to daughter at home with pneumonia and ear infection, as well as read recent time spent with daughter in hospital. UA remarkable for small leukocyte esterase, high urine WBC, however high a squamous epithelial cell presents, suspect contaminated sample. No dysuria, urinary frequency, hematuria or other symptoms of UTI. Reevaluation(s) Reevaluation #1: Respiratory panel negative XR chest 2V IMPRESSION: Unremarkable examination Respiratory panel negative, CXR unremarkable. Patient afebrile, vital signs stable, not in acute distress. At this time patient is stable to be discharged home with symptomatic management of upper respiratory infection. MDM - URI/Sore Throat Medical Records Attestation: I reviewed the patient's medical records. Lab Data Attestation: I reviewed the patient's lab results. Labs: Lab Results 04/08/22 04/08/22 04/08/22 Range/Units 16:01 16:01 16:03 Urine Color Yellow Urine Appearance Clear Urine pH 5.5 (5.0-9.0) Ur Specific [place] 1.020 (1.005-1.025) Urine Protein Negative (Neg-Trace) mg/dL Urine Glucose (UA) Negative (Negative) mg/dL Urine Ketones Trace (Negative) mg/dL Urine Blood Negative (Negative) Urine Nitrite Negative (Negative) Ur Leukocyte Esterase Small (1+) H (Negative) Urine RBC 0-2 (0-2) /HPF Urine WBC 6-10 H (0-5) /HPF Ur Squamous Epith Cells 11-20 (0-2) /HPF Urine Bacteria 2+ (None Seen) Hyaline Casts 0-2 (0-2) /LPF Urine Test NEGATIVE (NEGATIVE) COVID-19 (SOLA) Negative (Negative) COVID-19 Clin Com See Note Influenza Type A (PCR) (Negative) Influenza Type B (PCR) (Negative) RSV RNA Qual (PCR) (Negative) SARS-CoV-2 RNA (RT-PCR) (Negative) 04/08/22 Range/Units 18:07 Urine Color Urine Appearance Urine pH (5.0-9.0) Ur Specific [place] (1.005-1.025) Urine Protein (Neg-Trace) mg/dL Urine Glucose (UA) (Negative) mg/dL Urine Ketones (Negative) mg/dL Urine Blood (Negative) Urine Nitrite (Negative) Ur Leukocyte Esterase (Negative) Urine RBC (0-2) /HPF Urine WBC (0-5) /HPF Ur Squamous Epith Cells (0-2) /HPF Urine Bacteria (None Seen) Hyaline Casts (0-2) /LPF Urine Test (NEGATIVE) COVID-19 (SOLA) (Negative) COVID-19 Clin Com Influenza Type A (PCR) NEGATIVE (Negative) Influenza Type B (PCR) NEGATIVE (Negative) RSV RNA Qual (PCR) NEGATIVE (Negative) SARS-CoV-2 RNA (RT-PCR) NEGATIVE (Negative) Discharge Plan Discharge Clinical Impression: Upper respiratory infection Patient Disposition: Home, Self-Care Instructions: Upper Respiratory Infection (ED) Prescriptions: New azithromycin 250 mg tablet See Rx Instructions PO .COMPLEX Qty: 6 0RF Rx Instructions: take 500 mg today (day 1), then 250 mg for 4 days (days 2-5) codeine-guaifenesin [Guaifenesin AC] 10-100 mg/5 mL liquid 5 ml PO Q6H PRN (Reason: cold symptoms) Qty: 120 0RF cyclobenzaprine 10 mg tablet 10 mg PO Q8H Qty: 14 0RF No Action cephalexin 750 mg capsule 750 mg PO BID Qty: 14 0RF cromolyn 4 % drops 1 drp ophthalmic (eye) QID Qty: 10 2RF cyclobenzaprine 10 mg tablet 10 mg PO TID PRN (Reason: muscle spasm) Qty: 14 0RF prednisone 20 mg tablet 40 mg PO DAILY 5 Days Qty: 10 0RF ondansetron 4 mg tablet,disintegrating 4 mg PO Q8H PRN (Reason: nausea and vomiting) Qty: 10 0RF docusate sodium [Colace] 100 mg capsule 100 mg PO BID Qty: 30 0RF Referrals: Roger Daily MD [Primary Care Provider] - 3 days Stand Alone Forms: Work/School Release
[2022-04-08] MEDS: Ibuprofen 800 MG TABLET PO (18:41)
[2022-04-08 18:53] LABS: Influenza A PCR NEGATIVE (Negative); Influenza B PCR NEGATIVE (Negative); Resp Syncy Virus RNA Qual PCR NEGATIVE (Negative); SARS COV2 PCR INHOUSE NEGATIVE (Negative)
[2022-04-08] MEDS: Cyclobenzaprine HCl 10 MG TABLET PO (20:07)
== END 2022-04-08 19:58 | disposition home or self-care (01) ==
PROVIDERS: Physician Assistant Medical; Emergency Provider Emergency Medicine; PCP Internal Medicine
DX: J06.9 Acute upper respiratory infection, unspecified (principal); R05.9 Cough, unspecified; R50.9 Fever, unspecified; R51.9 Headache, unspecified; Z20.822 Contact with and (suspected) exposure to COVID-19; Z79.899 Other long term (current) drug therapy
CPT/HCPCS: 0241U; 71046; 81001; 81025; 87086; 87635; 93005; 99283

== ENCOUNTER 2022-06-14 18:24 | Emergency (ER) | payer OTHER, SELFPAY ==
--- NOTE | ~2022-06-14 | CT_ITS ---
EXAM: CT scan of the chest, abdomen, and pelvis. INDICATION: Chest pain. Question fractures. COMPARISON: Chest x-ray 04/08/[address] abdomen pelvis 12/06/2021 TECHNIQUE: Multidetector helical imaging of the chest, abdomen, and pelvis was obtained from the thoracic inlet through the pubic symphysis. Coronal and sagittal reformatted images that were obtained were also reviewed. DLP: 1241 mGy-cm FINDINGS: CHEST: Central airways are patent. Lungs are well aerated. There is no lobar consolidation. No pleural effusion or pneumothorax. No suspicious pulmonary nodules. The heart is normal in size. No pericardial effusion. No coronary artery calcifications. Normal caliber thoracic aorta. No gross mediastinal or hilar lymphadenopathy. No pathologically enlarged axillary lymph nodes. ABDOMEN/PELVIS: The liver is normal in appearance. The gallbladder is decompressed. The pancreas, spleen and adrenal glands are unremarkable. A few small splenules are noted. Symmetrically sized kidneys. No renal calculi or hydronephrosis of either kidney. Normal caliber loops of small and large bowel. Mild colonic stool burden. Normal appendix. Tiny fat-containing umbilical hernia is stable. Normal caliber abdominal aorta. The bladder is normal in appearance. Retroverted uterus with IUD in expected orientation. Trace amount of free pelvic fluid is nonspecific but statistically physiologic. No inguinal lymphadenopathy. OSSEOUS STRUCTURES No acute osseous abnormality. CT/CT chest wo IV con IMPRESSION: 1. No CT evidence for acute abnormality within the chest, abdomen or pelvis. Specifically, no rib fracture identified. 2. Mild colonic stool burden.
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
--- NOTE | ~2022-06-14 | CT_ITS ---
EXAM: CT scan of the chest, abdomen, and pelvis. INDICATION: Chest pain. Question fractures. COMPARISON: Chest x-ray 04/08/[address] abdomen pelvis 12/06/2021 TECHNIQUE: Multidetector helical imaging of the chest, abdomen, and pelvis was obtained from the thoracic inlet through the pubic symphysis. Coronal and sagittal reformatted images that were obtained were also reviewed. DLP: 1241 mGy-cm FINDINGS: CHEST: Central airways are patent. Lungs are well aerated. There is no lobar consolidation. No pleural effusion or pneumothorax. No suspicious pulmonary nodules. The heart is normal in size. No pericardial effusion. No coronary artery calcifications. Normal caliber thoracic aorta. No gross mediastinal or hilar lymphadenopathy. No pathologically enlarged axillary lymph nodes. ABDOMEN/PELVIS: The liver is normal in appearance. The gallbladder is decompressed. The pancreas, spleen and adrenal glands are unremarkable. A few small splenules are noted. Symmetrically sized kidneys. No renal calculi or hydronephrosis of either kidney. Normal caliber loops of small and large bowel. Mild colonic stool burden. Normal appendix. Tiny fat-containing umbilical hernia is stable. Normal caliber abdominal aorta. The bladder is normal in appearance. Retroverted uterus with IUD in expected orientation. Trace amount of free pelvic fluid is nonspecific but statistically physiologic. No inguinal lymphadenopathy. OSSEOUS STRUCTURES No acute osseous abnormality. CT/CT abdomen pelvis wo IV con IMPRESSION: 1. No CT evidence for acute abnormality within the chest, abdomen or pelvis. Specifically, no rib fracture identified. 2. Mild colonic stool burden.
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
[2022-06-14 18:46] VITALS: BP 129/83; PULSE 100; O2SAT 99
[2022-06-14 18:54] VITALS: BP 137/80; PULSE 97; TEMP 37.1
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
[2022-06-14 18:57] VITALS: BP 136/82; PULSE 99; RESP 18; TEMP 36.9; O2SAT 99; BMI 31.2
--- OUTSIDE RECORDS SUMMARY | 2022-06-14 19:05 | XMS_ITS | Continuity of Care Document ---
:1995 Author Organization [facility] Janina [employer] p Address [address] [place] [address]- Care Team Providers Name Role Phone Not on Staff, PCP Primary Care Physician Unavailable Encounter [facility] ACCT R [id number] Date(s): 11/07/20 - 01/09/21 [facility] [employer] [address] [address]- Attending Physician: Homer Pabon MD Referring Physician: Not on Staff, Referring MD Allergies, Adverse Reactions, Alerts Substance Reaction Severity Status NKA Active Medications Flonase 50 mcg/inh nasal spray 2 sprays, Nares, Both, Daily in AM, # 16 Gm, 0 Refills, Maintenance, 12/13/18 12:49:18 EDT, [place], 2sprays Nares, Both Daily in AM Start Date: 12/13/18 Status: OrderedLiletta 52 mg intrauterine device 1 each = 52 mg, Once, 0 Refills, Maintenance, 11/05/20 8:58:00 EDT, Partial fill upon patient request if the prescription is for a schedule II opioid drug. Start Date: 11/05/20 Status: OrderedPNV By Mouth, Daily, 0 Refills, Maintenance, 11/05/20 8:58:00 EDT, Partial fill upon patient request if the prescription is for a schedule II opioid drug. Start Date: 11/05/20 Status: OrderedVitamin B6 Daily, 0 Refills, Maintenance, 11/05/20 8:59:00 EDT, Partial fill upon patient request if the prescription is for a schedule II opioid drug. Start Date: 11/05/20 Status: OrderedZoloft 50 mg oral tablet 1 tablet = 50 mg, By Mouth, Daily, 0 Refills, Maintenance, 11/05/20 8:58:00 EDT, Partial fill upon patient request if the prescription is for a schedule II opioid drug. Start Date: 11/05/20 Status: Ordered Problem List Condition Effective Dates Status Health Status Informant Abnormal Pap smear of Active cervix(Confirmed) Anemia(Confirmed) Active Anxiety(Confirmed) Active ASCUS of cervix with negative high Active risk HPV(Confirmed) Depression(Confirmed) Active Yeast infection(Confirmed) Active Unwanted fertility(Confirmed) Active
--- OUTSIDE RECORDS SUMMARY | 2022-06-14 19:05 | XMS_ITS | Continuity of Care Document ---
:1995 [facility] [employer] [facility] Address [address] [place] [address]- Care Team Providers Name Role Phone Not on Staff, PCP Primary Care Physician Unavailable [id number] Date[facility]s): 08/21/21 - 11/25/21 [facility] Janina [employer] [address] [address]- Attending Physician: Bianca Corcoran MD Referring Physician: Not on Staff, Referring MD Allergies, Adverse Reactions, Alerts No Known Allergies Medications Flonase 50 mcg/inh nasal spray 2 sprays, Nares, Both, Daily in AM, # 16 Gm, 0 Refills, Maintenance, 12/13/18 12:49:18 EDT, [place], 2sprays Nares, Both Daily in AM Start [...]
--- OUTSIDE RECORDS SUMMARY | 2022-06-14 19:05 | XMS_ITS | Continuity of Care Document ---
:1995 Author Organization [facility] Address [address] [place] [address], [address] [place] [address]- Care Team Providers Name Role Phone Not on Staff, PCP Primary Care Physician Unavailable [facility] [facility] [place] [id number] Date(s): 01/01/22 - 01/31/22 [facility] [employer] [address] [address] Attending Physician: Norberto Murrell Admitting Physician: Norberto Murrell Referring Physician: AdmtrNorberto Allergies, Adverse Reactions, Alerts No Known Allergies Medications Flonase 50 mcg/inh nasal spray 2 sprays, Nares, Both, Daily in AM, # 16 Gm, 0 Refills, Maintenance, 12/13/18 12:49:18 EDT, [place], 2sprays Nares, Both Daily in AM Start [...]
--- OUTSIDE RECORDS SUMMARY | 2022-06-14 19:05 | XMS_ITS | Continuity of Care Document ---
:1995 Author Organization [facility] Janina [facility] Address [address] [place] [address]- Care Team Providers Name Role Phone Not on Staff, PCP Primary Care Physician Unavailable Encounter [facility] Date(s): 05/01/20 - 07/25/20 [facility] [employer] [address] [address] Attending Physician: Homer Pabon MD Referring Physician: Not on Staff, Referring MD Allergies, Adverse Reactions, Alerts Substance Reaction Severity Status NKA Active Medications Flonase 50 mcg/inh nasal spray 2 sprays, Nares, Both, Daily in AM, # 16 Gm, 0 Refills, Maintenance, 12/13/18 12:49:18 EDT, [place], 2sprays Nares, Both Daily in AM Start Date: 12/13/18 Status: Ordered
--- OUTSIDE RECORDS SUMMARY | 2022-06-14 19:05 | XMS_ITS | Continuity of Care Document ---
:1995 Author [facility] Address [address] [place] [address]- Care Team Providers Name Role Phone Not on Staff, PCP Primary Care Physician Unavailable Encounter [facility] Date(s): 05/01/20 - 05/31/20 [facility] [employer] [address] [address] Allergies, Adverse Reactions, Alerts Substance Reaction Severity Status NKA Active Medications Flonase 50 mcg/inh nasal spray 2 sprays, Nares, Both, Daily in AM, # 16 Gm, 0 Refills, Maintenance, 12/13/18 12:49:18 EDT, [place], 2sprays Nares, Both Daily in AM Start Date: 12/13/18 Status: Ordered
--- OUTSIDE RECORDS SUMMARY | 2022-06-14 19:05 | XMS_ITS | Continuity of Care Document ---
:1995 Author Organization [facility] [employer] [facility] p Address [address] [place] [address], [address] [place] [address]- Care Team Providers Name Role Phone Not on Staff, PCP Primary Care Physician Unavailable [place] [facility] [place]): [place]20 - 09/26/20 [facility] Janina [employer] [address], [address] [place] [address]- Attending Physician: Homer Pabon MD Referring Physician: Not on Staff, Referring MD Allergies, Adverse Reactions, Alerts Substance Reaction Severity Status NKA Active Medications Flonase 50 mcg/inh nasal spray 2 sprays, Nares, Both, Daily in AM, # 16 Gm, 0 Refills, Maintenance, 12/13/18 12:49:18 EDT, [place], 2sprays Nares, Both Daily in AM Start Date: 12/13/18 Status: Ordered Problem List Condition Effective Dates Status Health Status Informant Abnormal Pap smear of Active cervix(Confirmed) Anemia(Confirmed) Active Anxiety(Confirmed) Active ASCUS of cervix with negative high Active risk HPV(Confirmed) Depression(Confirmed) Active Yeast infection(Confirmed) Active
--- OUTSIDE RECORDS SUMMARY | 2022-06-14 19:05 | XMS_ITS | Continuity of Care Document ---
:1995 Author Organization [facility] [employer] [facility] p Address [address] [place] [address]- Care Team Providers Name Role Phone Not on Staff, PCP Primary Care Physician Unavailable Encounter [facility] [place] Date(s): 11/05/20 - 11/12/20 [facility] [employer] [address] [address]- Attending Physician: Homer Pabon MD Allergies, Adverse Reactions, Alerts Substance Reaction Severity Status NKA Active Medications Flonase 50 mcg/inh nasal spray 2 sprays, Nares, Both, Daily in AM, # 16 Gm, 0 Refills, Maintenance, 12/13/18 12:49:18 EDT, [place], 2sprays Nares, Both Daily in AM Start [...] Active Yeast infection(Confirmed) Active Unwanted fertility(Confirmed) Active Procedures Procedure Date Related Diagnosis Body Site Status Abdominoplasty w/ reimplant of umbilicus Completed Extraction of wisdom tooth C ompleted Vital Signs Most recent to oldest [Reference Range]: 1 Height 155 cm (11/05/20 8:56 AM) Weight 62.27 kg (11/05/20 8:56 AM) Body Mass Index [18.5-24.99] 25.92 *H* (11/05/20 8:56 AM) Blood Pressure [90-138/55-84 mm Hg] 99/54 mm Hg (11/05/20 8:56 AM) Blood pressure sites Arm, left (11/05/20 8:56 AM) Weight Obtained Via Standing scale (11/05/20 8:56 AM)
--- OUTSIDE RECORDS SUMMARY | 2022-06-14 19:05 | XMS_ITS | Continuity of Care Document ---
:1995 Author Organization [facility] Address [address] [place] [address]- Care Team Providers Name Role Phone Not on Staff, PCP Primary Care Physician Unavailable En[place] [facility] Date(s): 11/10/20 - 01/14/[address] [address]- Attending Physician: Homer Pabon MD Admitting Physician: Homer Pabon MD Allergies, Adverse Reactions, Alerts Substance Reaction Severity Status NKA Active Medications Flonase 50 mcg/inh nasal spray 2 sprays, Nares, Both, Daily in AM, # 16 Gm, 0 Refills, Maintenance, 12/13/18 12:49:18 EDT, [place], 2sprays Nares, Both Daily in AM Start [...] Active Yeast infection(Confirmed) Active Unwanted fertility(Confirmed) Active Vital Signs Most recent to oldest [Reference Range]: 1 Height 157.48 cm (12/08/20 6:17 PM) Weight 75.0 kg (12/08/20 6:17 PM) Body Mass Index [18.5-24.99] 30.24 *>HHI* (12/08/20 6:17 PM) Dry Weight 75.0 kg (12/08/20 6:17 PM) Weight Obtained Via Patient/family stated (12/08/20 6:17 PM)
--- OUTSIDE RECORDS SUMMARY | 2022-06-14 19:05 | XMS_ITS | Continuity of Care Document ---
:1995 Author [facility] Address [address] [place] [address]- Care Team Providers Name Role Phone Not on Staff, PCP Primary Care Physician Unavailable [place] [facility] [place] 11/03/20 - 12/03/20 [facility] [place] [employer] [address] [address]- Allergies, Adverse Reactions, Alerts Substance Reaction Severity Status NKA Active Medications Flonase 50 mcg/inh nasal spray 2 sprays, Nares, Both, Daily in AM, # 16 Gm, 0 Refills, Maintenance, 12/13/18 12:49:18 EDT, [place], 2sprays Nares, Both Daily in AM Start [...]
--- OUTSIDE RECORDS SUMMARY | 2022-06-14 19:05 | XMS_ITS | Continuity of Care Document ---
:1995 Author Organization [facility] [place] [employer] [facility] p Address [address] [place] [phone]- Care Team Providers Name Role Phone Not on Staff, PCP Primary Care Physician Unavailable [id number] Date(s): 08/20/21 - 09/19/21 [facility] [place] [employer] [address] [address]- Allergies, Adverse Reactions, Alerts No Known Allergies Medications Flonase 50 mcg/inh nasal spray 2 sprays, Nares, Both, Daily in AM, # 16 Gm, 0 Refills, Maintenance, 12/13/18 12:49:18 EDT, [place], 2sprays Nares, Both Daily in AM Start [...]
--- OUTSIDE RECORDS SUMMARY | 2022-06-14 19:05 | XMS_ITS | Continuity of Care Document ---
:1995 Author Organization [facility] Janina [employer] p Address [address] [place] [address]- Care Team Providers Name Role Phone Not on Staff, PCP Primary Care Physician Unavailable En[place] [facility] [place]CT R [id number] Date(s): 11/19/20 - 01/30/21 [facility] [employer] [address] [address]- Attending Physician: Homer Pabon MD Referring Physician: Not on Staff, Referring MD Allergies, Adverse Reactions, Alerts Substance Reaction Severity Status NKA Active Medications Flonase 50 mcg/inh nasal spray 2 sprays, Nares, Both, Daily in AM, # 16 Gm, 0 Refills, Maintenance, 12/13/18 12:49:18 EDT, [place], 2sprays Nares, Both Daily in AM Start [...]
--- OUTSIDE RECORDS SUMMARY | 2022-06-14 19:05 | XMS_ITS | Continuity of Care Document ---
:1995 Author Organization [facility] Address [address] [place] [address], [address] [place] [address]- Care Team Providers Name Role Phone Not on Staff, PCP Primary Care Physician Unavailable Encounter [facility] [place] [facility] ACCT R [id number] Date(s): 10/26/21 - 11/25/21 [facility] [employer] [address] [address] Attending Physician: Norberto Murrell Admitting Physician: Norberto Murrell Referring Physician: AdmtrNorberto Allergies, Adverse Reactions, Alerts No Known Allergies Medications Flonase 50 mcg/inh nasal spray 2 sprays, Nares, Both, Daily in AM, # 16 Gm, 0 Refills, Maintenance, 12/13/18 12:49:18 EDT, [place], 2sprays Nares, Both Daily in AM Start [...]
--- OUTSIDE RECORDS SUMMARY | 2022-06-14 19:05 | XMS_ITS | Continuity of Care Document ---
:1995 Author Organization [facility] [employer] [facility] Address [address] [place] [address]- Care Team Providers Name Role Phone Not on Staff, PCP Primary Care Physician Unavailable [place] [facility] [place] [id number] Date(s): 10/26/21 - 01/31/22 [facility] Janina [employer] [address] [address]- Attending Physician: Bianca Corcoran MD Referring Physician: Not on Staff, Referring MD Allergies, Adverse Reactions, Alerts No Known Allergies Medications Flonase 50 mcg/inh nasal spray 2 sprays, Nares, Both, Daily in AM, # 16 Gm, 0 Refills, Maintenance, 12/13/18 12:49:18 EDT, [place], 2sprays Nares, Both Daily in AM Start [...]
--- OUTSIDE RECORDS SUMMARY | 2022-06-14 19:05 | XMS_ITS | Continuity of Care Document ---
:1995 Author Organization [facility] [employer] [facility] p Address [address] [place] [address]- Care Team Providers Name Role Phone Not on Staff, PCP Primary Care Physician Unavailable Encounter [facility] Date(s): 12/31/20 - 01/30/21 [facility] Janina [employer] [address] [address]- Attending Physician: Norberto Murrell Admitting Physician: AdmNorberto beck Referring Physician: Admtr ArAnibal Allergies, Adverse Reactions, Alerts Substance Reaction Severity Status NKA Active Medications Flonase 50 mcg/inh nasal spray 2 sprays, Nares, Both, Daily in AM, # 16 Gm, 0 Refills, Maintenance, 12/13/18 12:49:18 EDT, [place], 2sprays Nares, Both Daily in AM Start [...]
--- OUTSIDE RECORDS SUMMARY | 2022-06-14 19:05 | XMS_ITS | Continuity of Care Document ---
:1995 Author Organization [facility] [employer] [facility] p Address [address] [place] [address], [address] [place] [address]- Care Team Providers Name Role Phone Not on Staff, PCP Primary Care Physician Unavailable Encounter [facility] Date(s): 08/27/20 - 09/26/20 [facility] [employer] [address], [address] [place] [address] Attending Physician: Norberto Murrell Admitting Physician: Norberto Murrell Referring Physician: Norberto Murrell Allergies, Adverse Reactions, Alerts Substance Reaction Severity Status NKA Active Medications Flonase 50 mcg/inh nasal spray 2 sprays, Nares, Both, Daily in AM, # 16 Gm, 0 Refills, Maintenance, 12/13/18 12:49:18 EDT, [place], 2sprays Nares, Both Daily in AM Start Date: 12/13/18 Status: Ordered Problem List Condition Effective Dates Status Health Status Informant Abnormal Pap smear of Active cervix(Confirmed) Anemia(Confirmed) Active Anxiety(Confirmed) Active ASCUS of cervix with negative high Active risk HPV(Confirmed) Depression(Confirmed) Active Yeast infection(Confirmed) Active
[2022-06-14] MEDS: oxyCODONE HCl Immed Release 5 MG TABLET PO (21:26)
[2022-06-14] MEDS: Ketorolac Tromethamine 30 MG/ML VIAL IM (22:26)
[2022-06-14 23:17] VITALS: BP 123/78; PULSE 98; RESP 18; TEMP 36.6; O2SAT 100
== END 2022-06-14 23:41 | disposition home or self-care (01) ==
PROVIDERS: Emergency Provider Internal Medicine; PCP Internal Medicine
DX: S16.1XXA Strain of muscle, fascia and tendon at neck level, initial encounter (principal); V43.52XA Car driver injured in collision with other type car in traffic accident, initial encounter; Y93.89 Activity, other specified; Y92.414 Local residential or business street as the place of occurrence of the external cause; Y99.9 Unspecified external cause status
CPT/HCPCS: 70450; 71250; 72125; 73564; 74176; 96372; 99284; J1885

== ENCOUNTER 2022-09-10 08:25 | Emergency (ER) | payer OTHER, SELFPAY ==
[2022-09-10 08:58] VITALS: BP 118/75; PULSE 97; RESP 20; TEMP 36.7; O2SAT 100; BMI 27.4
[2022-09-10 09:31] LABS: COVID-19 Test Negative (Negative); IDNOW Serial# 16C4AD1C
[2022-09-10 09:32] LABS: IDNOW Serial# BCCEAD1C; Influenza A Negative (Negative); Influenza B2 Negative (Negative)
--- NOTE | 2022-09-10 10:04 | ED_ITS ---
HPI - URI/Sore Throat General Chief Complaint: Upper Respiratory Symptoms Stated Complaint: Vomiting/Body aches/Fever Time Seen by Provider: 09/10/22 09:48 Source: patient Mode of arrival: ambulatory History of Present Illness HPI Narrative: 27-year-old female with no significant past medical history presenting to the ED complaining of fever T-max 101 degrees, nonproductive cough, myalgias, ear pain, rhinorrhea, fatigue since yesterday. Reports mild SOB. Denies CP, sore throat, difficulty/inability to swallow, abdominal pain, sick contacts, travel MD elicited complaint: fever, cough, rhinorrhea and nasal congestion Related Data Previous Rx's Medication Instructions Recorded cephalexin 750 mg capsule 750 mg PO BID #14 caps 11/04/20 cromolyn 4 % eye drops 1 drp ophthalmic (eye) QID #10 mL 11/11/20 cyclobenzaprine 10 mg tablet 10 mg PO TID PRN muscle spasm #14 01/27/21 tabs prednisone 20 mg tablet 40 mg PO DAILY 5 days #10 tabs 01/27/21 docusate sodium 100 mg capsule 100 mg PO BID #30 caps 12/06/21 (Colace) ondansetron 4 mg disintegrating 4 mg PO Q8H PRN nausea and 12/06/21 tablet vomiting #10 tabs azithromycin 250 mg tablet See Rx Instructions PO .COMPLEX #6 04/08/22 tabs codeine 10 mg-guaifenesin 100 mg/5 5 ml PO Q6H PRN cold symptoms #120 04/08/22 mL oral liquid (Guaifenesin AC) mL cyclobenzaprine 10 mg tablet 10 mg PO Q8H #14 tabs 04/08/22 cyclobenzaprine 10 mg tablet 10 mg PO BEDTIME PRN muscle spasm 06/14/22 7 days #7 tabs ketorolac 10 mg tablet 10 mg PO QID PRN pain 5 days #20 06/14/22 tabs prednisone 20 mg tablet 40 mg PO DAILY 5 days #10 tabs 06/14/22 gmespqhjif-lodyzjkgbeuuc-gwvwmbsi 1 cap PO Q4-6H PRN headache #14 09/10/22 50 mg-300 mg-40 mg capsule caps (Fioricet) Allergies Allergy/AdvReac Type Severity Reaction Status Date / Time No Known Allergies Allergy Unverified 04/10/20 17:25 Review of Systems Review of Systems: Constitutional:+ Fever, No Chills ENT/Mouth: + Ear Pain, + Nasal Congestion, No Sinus Pain, No Hoarseness, No sore throat, + Rhinorrhea, No Swallowing Difficulty Cardiovascular: No Chest Pain, + SOB Respiratory: + Cough, No Sputum, No Wheezing Gastrointestinal: No Nausea, No Vomiting, No Diarrhea, No Constipation, No Abdominal pain Genitourinary: No Dysuria, No Urinary Frequency, No Hematuria, No Flank Pain Musculoskeletal: No joint pain, + Myalgias, No Joint Swelling Skin: No Skin Lesions, No rash Neuro: No Weakness, No Numbness, No Paresthesias Yes all other systems are reviewed and are negative Constitutional: Constitutional: Reports as per [facility] Past Medical History Attestation statement: The following information was validated with the patient. Medical History Low blood pressure Surgical History S/P abdominoplasty Social History Social History Alcohol intake: never Patient Tobacco Use Status: Never used Tobacco Advance Directives: No Advance Directives Information Provided: Yes Physical Exam Vital Signs: Vital Signs: Last Vital Signs Temp 98.1 F 09/10/22 08:58 Pulse 97 09/10/22 08:58 Resp 20 09/10/22 08:58 BP 118/75 09/10/22 08:58 Pulse Ox 100 09/10/22 08:58 O2 Del Method 09/10/22 08:58 BMI result Body Mass Index 27.4 Const: General: cooperative, healthy appearing and no acute distress Orientation/consciousness: patient oriented x3 Limitations: no limitations HEENT: Head: Yes normal to inspection and Yes atraumatic Ears: hearing grossly normal bilaterally, external ears normal, TM's normal bilaterally and mastoids normal General nose exam: Normal external nose present Face and sinus: Yes normal facial exam Throat: Yes posterior oropharynx normal, Yes tonsils normal, Yes uvula midline, No peritonsillar mass, No uvula laterally displaced and No uvular edema Eyes: General: appearance normal, both eyes and all related structures EOM: EOMs intact bilaterally Neck: Neck: Yes normal visual inspection, Yes no lymphadenopathy and Yes no meningeal signs Resp: Effort & Inspection: normal respiratory effort and no respiratory distress Auscultation: clear to auscultation bilaterally, no crackles, no rales and no rhonchi Cardio: Rate: regular rate Heart sounds: S1 normal heart sound present and S2 normal heart sound present GI: Inspection: Yes normal to inspection Palpation (GI): Soft to palpation, nontender, no guarding and not rigid Skin: Rashes: no rashes Wounds: no wounds Neuro: General: patient oriented x3, tone normal and no meningeal signs Gait exam (Neuro): Normal gait present Extrem: General: Yes normal to inspection Medications Administered Discontinued Medications Generic Name Dose Route Start Last Admin Trade Name Freq PRN Reason Stop Dose Admin Acetaminophen/Butalbital/Caffeine 1 tab 09/10/22 10:01 09/10/22 10:29 Butalb/Acetamin/Caff 50/325/40 Tablet PO 09/10/22 10:02 1 tab ONCE ONE Administration Medical Decision Making Medical Decision Making MDM Narrative: 27-year-old female with no significant past medical history presenting to the ED complaining of fever T-max 101 degrees, nonproductive cough, myalgias, ear pain, rhinorrhea, fatigue since yesterday. On exam vital signs stable, NAD, nontoxic appearing, lungs CTA, abdomen soft/nontender, exam otherwise nonfocal. Concern for viral illness. No evidence of [employer]/strep pharyngitis clinically. Low suspicion for ICH Plan: COVID-19/influenza testing, PO Fioricet -1007--COVID-19 and influenza negative Results discussed with patient including worrisome signs and symptoms and strict return precautions, and when to return to the emergency department. They verbalized understanding and feel safe for discharge at this time. Differential Diagnosis Differential Diagnoses: The differential diagnosis associated with the pres entation includes As above Lab Data MDM Lab Attestation statement: I reviewed the patient's lab results. Labs: Lab Results 09/10/22 09/10/22 Range/Units 09:02 09:02 COVID-19 ([facility]) Negative (Negative) COVID-19 Clin Com See Note Influenza Type A ([facility]) Negative (Negative) Influenza Type B ([facility]) Negative (Negative) Influenza A & B Note See Note Prescription Management I considered prescription management with: Pain Medication, Antiviral and Antibiotic Discharge Plan Discharge Clinical Impression: Upper respiratory infection Patient Disposition: Home, Self-Care Instructions: Upper Respiratory Infection (ED) Additional Instructions: You tested negative for COVID and the flu. Fioricet as a combination headache medicine take as needed. Be aware this has Tylenol mixed in do not exceed 4 g of Tylenol in 1 day Rest Stay hydrated Follow-up with her doctor If symptoms persist or worsen return to the ED Prescriptions: New daoxisjbef-fnjjwuonpsrow-atho [Fioricet] 50-300-40 mg capsule 1 cap PO Q4-6H PRN (Reason: headache) Qty: 14 0RF No Action cephalexin 750 mg capsule 750 mg PO BID Qty: 14 0RF cromolyn 4 % drops 1 drp ophthalmic (eye) QID Qty: 10 2RF cyclobenzaprine 10 mg tablet 10 mg PO TID PRN (Reason: muscle spasm) Qty: 14 0RF prednisone 20 mg tablet 40 mg PO DAILY 5 Days Qty: 10 0RF ondansetron 4 mg tablet,disintegrating 4 mg PO Q8H PRN (Reason: nausea and vomiting) Qty: 10 0RF docusate sodium [Colace] 100 mg capsule 100 mg PO BID Qty: 30 0RF azithromycin 250 mg tablet See Rx Instructions PO .COMPLEX Qty: 6 0RF Rx Instructions: take 500 mg today (day 1), then 250 mg for 4 days (days 2-5) codeine-guaifenesin [Guaifenesin AC] 10-100 mg/5 mL liquid 5 ml PO Q6H PRN (Reason: cold symptoms) Qty: 120 0RF cyclobenzaprine 10 mg tablet 10 mg PO Q8H Qty: 14 0RF ketorolac 10 mg tablet 10 mg PO QID PRN (Reason: pain) 5 Days Qty: 20 0RF Rx Instructions: Recieved 30mg IM toradol in the ED prednisone 20 mg tablet 40 mg PO DAILY 5 Days Qty: 10 0RF cyclobenzaprine 10 mg tablet 10 mg PO BEDTIME PRN (Reason: muscle spasm) 7 Days Qty: 7 0RF Referrals: Roger Daily MD [Primary Care Provider] - Stand Alone Forms: Work/School Release Interventions: ED Discharge Assessment Last Done: 09/10/22 10:32 Discharge Date/Time: 09/10/22 10:32
[2022-09-10] MEDS: Butalb/Acetamin/Caff 50/325/40 TABLET 1 TAB PO (10:29)
== END 2022-09-10 10:32 | disposition home or self-care (01) ==
PROVIDERS: Emergency Provider Emergency Medicine; PCP Internal Medicine
DX: J06.9 Acute upper respiratory infection, unspecified (principal); R50.9 Fever, unspecified; Z20.822 Contact with and (suspected) exposure to COVID-19
CPT/HCPCS: 87502; 87635; 99283

== ENCOUNTER 2022-09-13 07:07 | Emergency (ER) | payer OTHER, SELFPAY ==
--- NOTE | ~2022-09-13 | XR_ITS ---
EXAMINATION: XR CHEST CLINICAL INFORMATION: Cough COMPARISON: Chest radiographs 04/08/2022, 01/27/2021, 11/12/2018 TECHNIQUE: 2 views of the chest were obtained. FINDINGS: The lungs are clear. The vascularity is normal. No airspace consolidation or groundglass opacity or effusion. No hyperinflation. The hilar and mediastinal contours and bony structures are unremarkable. XR/XR chest 2V IMPRESSION: Unremarkable examination.
--- NOTE | 2022-09-13 07:09 | ECG_ITS ---
Test Reason : CHEST PAIN Blood Pressure : / mmHG Vent. Rate : 088 BPM Atrial Rate : 088 BPM P-R Int : 138 ms QRS Dur : 074 ms QT Int : 358 ms P-R-T Axes : 070 063 045 degrees QTc Int : 433 ms Normal sinus rhythm Normal ECG When compared with ECG of 08-APR-2022 16:03, No significant change was found Referred By: Generic ED Physician Electronically Signed By:LUDA DEE
[2022-09-13 07:33] VITALS: BP 107/78; PULSE 84; RESP 18; TEMP 36.7; O2SAT 97; BMI 27.4
[2022-09-13 08:27] LABS: Influenza A PCR NEGATIVE (Negative); Influenza B PCR NEGATIVE (Negative); Resp Syncy Virus RNA Qual PCR NEGATIVE (Negative); SARS COV2 PCR INHOUSE NEGATIVE (Negative)
--- NOTE | 2022-09-13 11:01 | ED.URI ---
HPI - URI/Sore Throat General Chief Complaint: Upper Respiratory Symptoms Stated Complaint: Chest pain/Body aches/Headache Time Seen by Provider: 09/13/22 09:09 History of Present Illness HPI Narrative: Patient complains of worsening cough, body aches including chest back legs and arms There is no exertional chest pain no shortness of breath, no nausea or vomiting no diaphoresis no dizziness no fainting no feeling faint no palpitation pain is continuous and worse with coughing and moving, pain has been there for over 24 hours Related Data Previous Rx's Medication Instructions Recorded cephalexin 750 mg capsule 750 mg PO BID #14 caps 11/04/20 cromolyn 4 % eye drops 1 drp ophthalmic (eye) QID #10 mL 11/11/20 cyclobenzaprine 10 mg tablet 10 mg PO TID PRN muscle spasm #14 01/27/21 tabs prednisone 20 mg tablet 40 mg PO DAILY 5 days #10 tabs 01/27/21 docusate sodium 100 mg capsule 100 mg PO BID #30 caps 12/06/21 (Colace) ondansetron 4 mg disintegrating 4 mg PO Q8H PRN nausea and 12/06/21 tablet vomiting #10 tabs azithromycin 250 mg tablet See Rx Instructions PO .COMPLEX #6 04/08/22 tabs codeine 10 mg-guaifenesin 100 mg/5 5 ml PO Q6H PRN cold symptoms #120 04/08/22 mL oral liquid (Guaifenesin AC) mL cyclobenzaprine 10 mg tablet 10 mg PO Q8H #14 tabs 04/08/22 cyclobenzaprine 10 mg tablet 10 mg PO BEDTIME PRN muscle spasm 06/14/22 7 days #7 tabs ketorolac 10 mg tablet 10 mg PO QID PRN pain 5 days #20 06/14/22 tabs prednisone 20 mg tablet 40 mg PO DAILY 5 days #10 tabs 06/14/22 [id number]-iwtbztwxmemsf-srlvwmtr 1 cap PO Q4-6H PRN headache #14 09/10/22 50 mg-300 mg-40 mg capsule caps (Fioricet) azithromycin 250 mg tablet See Rx Instructions PO .COMPLEX #6 09/13/22 (Zithromax Z-Josh) tabs oxycodone 5 mg tablet 5 mg PO Q6H PRN pain #10 tabs 09/13/22 Allergies Allergy/AdvReac Type Severity Reaction Status Date / Time No Known Allergies Allergy Verified 09/13/22 07:35 [facility] Past Medical History Source: nursing notes reviewed Medical History Low blood pressure Surgical History S/P abdominoplasty Social History Social History Alcohol intake: never Patient Tobacco Use Status: Never used Tobacco Advance Directives: No Advance Directives Information Provided: No Physical Exam Vital Signs: Vital Signs: Last Vital Signs Temp 97.9 F 09/13/22 11:14 Pulse 75 09/13/22 11:14 Resp 14 09/13/22 11:14 BP 103/68 09/13/22 11:14 Pulse Ox 100 09/13/22 11:14 O2 Del Method 09/13/22 11:14 BMI result Body Mass Index 27.4 General appearance no acute distress The eyes no redness no discharge The nose no sinus tenderness The pharynx is clear no redness swelling or exudate, membranes moist mucous membranes moist voice is normal Neck is supple Chest clear to auscultation bilateral Heart no murmur Abdomen soft nontender Extremities no edema no calf tenderness or swelling Course Course Course Narrative: Patient with continuous pain in chest wall associated with body aches, pain is easily reproduced with movement deep breath and touch, no exertional component, no shortness of breath, cardiac etiology very unlikely Chest x-ray was normal, COVID and flu tests were negative and patient with worsening cough is treated for bronchitis, otherwise well-appearing Medical Decision Making Lab Data Labs: Lab Results 09/13/22 Range/Units 07:42 Influenza Type A (PCR) NEGATIVE (Negative) Influenza Type B (PCR) NEGATIVE (Negative) RSV RNA Qual (PCR) NEGATIVE (Negative) SARS-CoV-2 RNA (RT-PCR) NEGATIVE (Negative) Discharge Plan Discharge Clinical Impression: Bronchitis Patient Disposition: Home, Self-Care Additional Instructions: Chest x-ray was normal, COVID test and flu test were normal Your cough may be viral or it may be developing into a bacterial bronchitis so we are prescribing antibiotic As Tylenol Motrin are not adequate I wrote for a few narcotic oxycodone to use if the body aches are severe Return to the ER any worse condition or any concerns Follow with her doctor next week if not better Prescriptions: New azithromycin [Zithromax Z-Josh] 250 mg tablet See Rx Instructions .ROUTE .COMPLEX Qty: 6 0RF Rx Instructions: For 250 mg dose pack: take 500 mg today (day 1), then 250 mg for 4 days (days 2-5) oxycodone 5 mg tablet 5 mg PO Q6H PRN (Reason: pain) Qty: 10 0RF Rx Instructions: Partial Fill upon patient request. No Action cephalexin 750 mg capsule 750 mg PO BID Qty: 14 0RF cromolyn 4 % drops 1 drp ophthalmic (eye) QID Qty: 10 2RF cyclobenzaprine 10 mg tablet 10 mg PO TID PRN (Reason: muscle spasm) Qty: 14 0RF prednisone 20 mg tablet 40 mg PO DAILY 5 Days Qty: 10 0RF ondansetron 4 mg tablet,disintegrating 4 mg PO Q8H PRN (Reason: nausea and vomiting) Qty: 10 0RF docusate sodium [Colace] 100 mg capsule 100 mg PO BID Qty: 30 0RF azithromycin 250 mg tablet See Rx Instructions PO .COMPLEX Qty: 6 0RF Rx Instructions: take 500 mg today (day 1), then 250 mg for 4 days (days 2-5) codeine-guaifenesin [Guaifenesin AC] 10-100 mg/5 mL liquid 5 ml PO Q6H PRN (Reason: cold symptoms) Qty: 120 0RF cyclobenzaprine 10 mg tablet 10 mg PO Q8H Qty: 14 0RF ketorolac 10 mg tablet 10 mg PO QID PRN (Reason: pain) 5 Days Qty: 20 0RF Rx Instructions: Recieved 30mg IM toradol in the ED prednisone 20 mg tablet 40 mg PO DAILY 5 Days Qty: 10 0RF cyclobenzaprine 10 mg tablet 10 mg PO BEDTIME PRN (Reason: muscle spasm) 7 Days Qty: 7 0RF paanomoowf-ufkcnmyfizpxv-cxvk [Fioricet] 50-300-40 mg capsule 1 cap PO Q4-6H PRN (Reason: headache) Qty: 14 0RF Stand Alone Forms: Work/School Release Interventions: ED Discharge Assessment Last Done: 09/13/22 11:16 Discharge Date/Time: 09/13/22 11:17
[2022-09-13 11:14] VITALS: BP 103/68; PULSE 75; RESP 14; TEMP 36.6; O2SAT 100
== END 2022-09-13 11:17 | disposition home or self-care (01) ==
PROVIDERS: Emergency Provider Emergency Medicine; PCP Internal Medicine
DX: J40 Bronchitis, not specified as acute or chronic (principal); R07.89 Other chest pain; M79.10 Myalgia, unspecified site; M79.605 Pain in left leg; M79.604 Pain in right leg; Z20.822 Contact with and (suspected) exposure to COVID-19; Z20.828 Contact with and (suspected) exposure to other viral communicable diseases
CPT/HCPCS: 0241U; 71046; 93005; 99283; 99284

== ENCOUNTER 2022-12-17 08:46 | Observation (INO) | payer OTHER, SELFPAY ==
--- NOTE | ~2022-12-17 | CT_ITS ---
EXAMINATION: CT ANGIOGRAM OF THE CHEST WITH AND WITHOUT CONTRAST (CT PULMONARY ANGIOGRAM FOR PE) CLINICAL INFORMATION: Reason for Exam Elevated D-dimer. Tachycardia COMPARISON: None available. TECHNIQUE: Prior to contrast administration, noncontrast localization images were obtained. Subsequently, multidetector volumetric imaging was performed from the thoracic inlet to below the diaphragms following the administration of 80 mL Omnipaque 350 intravenous contrast. No contrast reaction reported Sagittal, coronal, and MIP oblique sagittal reformatted images were obtained on the CT workstation, uploaded to PACS, and reviewed. This CT examination was performed using dose optimization techniques as appropriate, variously including the following: *Automated exposure control *Adjustment of mA and/or kV according to patient size (this includes techniques or standardized protocols for targeted exams where dose is matched to indication/reason for exam; i.e. extremities or head) *Use of iterative reconstruction technique Total exam dose-length product 269 mGy-cm FINDINGS: QUALITY OF STUDY/CONTRAST BOLUS: Satisfactory. PULMONARY ARTERIES: No pulmonary emboli. THORACIC AORTA: No aneurysm. LUNG: No focal consolidation, nodules or masses. PLEURA: No pleural effusion or pneumothorax. MEDIASTINUM: The thyroid lobes are symmetrical and normal. Central trachea and bronchi are widely patent. Heart size and the great vessels are normal caliber. There is no pericardial effusion. No abnormal size mediastinal mass or lymphadenopathy seen. No evidence of septal bowing or right heart strain. CORONARY ARTERY CALCIFICATION: There is mild coronary artery calcifications present. CHEST WALL/AXILLA: No axillary or internal mammary lymphadenopathy. OSSEOUS STRUCTURES: No aggressive lytic or sclerotic process seen UPPER ABDOMEN: Unremarkable. No reflux of contrast into the hepatic veins to suggest elevated right heart pressures. CT/CT angio chest PE protocol IMPRESSION: 1. No evidence of PE. 2. No evidence of aortic aneurysm. 3. The lungs are clear. 4. VTE: negative.
--- NOTE | ~2022-12-17 | XR_ITS ---
EXAMINATION: XR CHEST CLINICAL INFORMATION: Chest pain and shortness of breath COMPARISON: Previous chest x-ray August 2022 TECHNIQUE: 2 views of the chest were obtained. FINDINGS: No significant abnormality is noted involving the heart, lungs, mediastinum, bony thorax or soft tissues. XR/XR chest 2V IMPRESSION: Unremarkable examination.
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
[2022-12-17 09:02] VITALS: BP 138/93; PULSE 138; RESP 20; TEMP 36.7; O2SAT 100; BMI 29.7
--- NOTE | 2022-12-17 09:08 | ED_ITS ---
HPI - Chest Pain General Chief Complaint: Chest Pain Stated Complaint: diff breathing vomiting chest pain sore throat Time Seen by Provider: 12/17/22 09:06 Source: patient, RN notes reviewed and old records reviewed Mode of arrival: ambulatory History of Present Illness HPI narrative: 27-year-old female with no significant past medical history presenting to the ED complaining of rhinorrhea, congestion, subjective fever, sore throat, chest pain, palpitations, and SOB since yesterday. Admits chest pain started this morning, w/SOB at rest. Denies recent travel, oral OCPs, cigarette smoking, abdominal pain, nausea/vomiting, pedal edema MD complaint: chest pain Related Data Previous Rx's Medication Instructions Recorded cephalexin 750 mg capsule 750 mg PO BID #14 caps 11/04/20 cromolyn 4 % eye drops 1 drp ophthalmic (eye) QID #10 mL 11/11/20 cyclobenzaprine 10 mg tablet 10 mg PO TID PRN muscle spasm #14 01/27/21 tabs prednisone 20 mg tablet 40 mg PO DAILY 5 days #10 tabs 01/27/21 docusate sodium 100 mg capsule 100 mg PO BID #30 caps 12/06/21 (Colace) ondansetron 4 mg disintegrating 4 mg PO Q8H PRN nausea and 12/06/21 tablet vomiting #10 tabs azithromycin 250 mg tablet See Rx Instructions PO .COMPLEX #6 04/08/22 tabs codeine 10 mg-guaifenesin 100 mg/5 5 ml PO Q6H PRN cold symptoms #120 04/08/22 mL oral liquid (Guaifenesin AC) mL cyclobenzaprine 10 mg tablet 10 mg PO Q8H #14 tabs 04/08/22 cyclobenzaprine 10 mg tablet 10 mg PO BEDTIME PRN muscle spasm 06/14/22 7 days #7 tabs ketorolac 10 mg tablet 10 mg PO QID PRN pain 5 days #20 06/14/22 tabs prednisone 20 mg tablet 40 mg PO DAILY 5 days #10 tabs 06/14/22 [id number] 1 cap PO Q4-6H PRN headache #14 09/10/22 50 mg-300 mg-40 mg capsule caps (Fioricet) azithromycin 250 mg tablet See Rx Instructions PO .COMPLEX #6 09/13/22 (Zithromax Z-Josh) tabs oxycodone 5 mg tablet 5 mg PO Q6H PRN pain #10 tabs 09/13/22 Allergies Allergy/AdvReac Type Severity Reaction Status Date / Time pollen extracts Allergy Mild Itchy Eyes Verified 12/17/22 09:05 Review of Systems Review of Systems: Constitutional: +subj Fever, No Chills, No Fatigue, No Malaise ENT/Mouth: No Ear Pain, + Nasal Congestion, No Sinus Pain, No Hoarseness, + sore throat, + Rhinorrhea, No Swallowing Difficulty Eyes: No Eye Pain, No Swelling, No Redness, No Vision Changes Cardiovascular: + Chest Pain, + SOB, No Dyspnea on Exertion, No Orthopnea, No Edema, + Palpitations Respiratory: No Cough, No Sputum, + Dyspnea Gastrointestinal: No Nausea, No Vomiting, No Diarrhea, No Constipation, No Abdominal pain Genitourinary: No Dysuria, No Flank Pain, No Urinary Flow Changes, No Hesitancy Musculoskeletal: No joint pain, No Myalgias, No Joint Swelling Skin: No Skin Lesions, No rash Neuro: No Weakness, No Dizziness, No Headache Yes all other systems are reviewed and are negative Constitutional: Constitutional: Reports as per [facility] Past Medical History Attestation statement: The following information was validated with the patient. Source: old records reviewed Medical History Low blood pressure Surgical History S/P abdominoplasty Social History Social History Alcohol intake: never Patient Tobacco Use Status: Never used Tobacco Smoked in Last 30 Days: No Use of substances other than those prescribed or required for medical reasons: No Advance Directives: No Physical Exam Vital Signs: Vital Signs: Last Vital Signs Temp 98.0 F 12/17/22 09:02 Pulse 136 H 12/17/22 12:00 Resp 18 12/17/22 12:00 BP 127/80 12/17/22 11:27 Pulse Ox 98 12/17/22 12:00 O2 Del Method Room Air 12/17/22 12:00 BMI result Body Mass Index 29.7 Const: General: cooperative, healthy appearing, no acute distress, alert and awake Orientation/consciousness: patient oriented x3 Limitations: no limitations HEENT: Head: Yes normal to inspection and Yes atraumatic Ears: hearing grossly normal bilaterally, external ears normal, TM's normal bilaterally and mastoids normal General nose exam: Normal external nose present Face and sinus: Yes normal facial exam Throat: Yes posterior oropharynx normal, Yes tonsils normal, Yes uvula midline, No uvula laterally displaced and No uvular edema Eyes: General: appearance normal, both eyes and all related structures EOM: EOMs intact bilaterally Neck: Neck: Yes normal visual inspection and Yes no meningeal signs Resp: Effort & Inspection: normal respiratory effort and no respiratory distress Auscultation: clear to auscultation bilaterally, no rales, no rhonchi and no wheezes Cardio: Rate: regular rate Heart sounds: S1 normal heart sound present and S2 normal heart sound present Skin: Rashes: no rashes Wounds: no wounds Neuro: General: patient oriented x3, tone normal and no meningeal signs Gait exam (Neuro): Normal gait present Extrem: General: Yes normal to inspection Course Course Course Narrative: -0950--no leukocytosis. D-dimer elevated to 309 > will obtain CTA to rule out PE. Initial troponin negative -labs otherwise reassuring. Troponin x2 negative, DE unlikely XR chest 2V IMPRESSION: Unremarkable examination. CT angio chest PE protocol IMPRESSION: 1.? No evidence of PE. 2.? No evidence of aortic aneurysm. 3.? The lungs are clear. 4.? VTE: negative. -1409--on re-evaluation patient reports continued chest discomfort and myalgias. Persistently sinus tachycardia to 140, on 3L IVF -COVID/flu and rapid strep negative -1500--patient with low-grade temperature 100.8 degrees rectally, has received Tylenol and Toradol > case discussed with Cardiology Dr. Rosado who believes likely viral, myocarditis unlikely with normal troponins -patient's heart rate spike to 150s after ambulation > plan to admit for observation Medications Administered Discontinued Medications Generic Name Dose Route Start Last Admin Trade Name Freq PRN Reason Stop Dose Admin Acetaminophen/Butalbital/Caffeine 2 tab 12/17/22 10:28 12/17/22 10:40 Butalb/Acetamin/Caff 50/325/40 Tablet PO 12/17/22 10:29 2 tab ONCE ONE Administration Hydroxyzine HCl 25 mg 12/17/22 14:10 12/17/22 14:16 Hydroxyzine Hcl 25 Mg Tablet PO 12/17/22 14:11 25 mg ONCE ONE Administration Sodium Chloride 1,000 mls @ 999 mls/hr 12/17/22 09:30 12/17/22 10:41 Ns IV 12/17/22 10:30 Infused .Q1H1M SONAM Infusion Sodium Chloride 1,000 mls @ 999 mls/hr 12/17/22 10:00 12/17/22 11:44 Ns IV 12/17/22 11:00 Infused .Q1H1M SONAM Infusion Sodium Chloride 1,000 mls @ 999 mls/hr 12/17/22 13:45 12/17/22 13:54 Ns IV 12/17/22 14:45 999 mls/hr .Q1H1M SONAM Administration Iohexol 100 ml 12/17/22 12:08 12/17/22 12:08 Iohexol 350 Mg/Ml 100 Ml Infus..Btl IV 12/17/22 12:09 65 ml ONCE ONE Administration Ketorolac Tromethamine 15 mg 12/17/22 14:10 12/17/22 14:16 Ketorolac Tromethamine 15 Mg/Ml Vial IVPUSH 12/17/22 14:11 15 mg ONCE ONE Administration Medical Decision Making Medical Decision Making [facility] Narrative: 27-year-old female with no significant past medical history presenting to the ED complaining of rhinorrhea, congestion, subjective fever, sore throat, chest pain, palpitations, and SOB since yesterday. On exam tachycardic to 138, NAD, nontoxic appearing, lungs CTA. Concern for viral illness vs ACS vs PE vs anxiety reaction vs arrhythmia. Lower suspicion for pneumonia. Low suspicion for severe sepsis at this time Plan: EKG, labs, CXR, COVID/flu/rapid strep testing, IVF Please refer to course for remaining clinical decision making, interpretation of labs/imaging results, and discussions with consultants and/or family members. Differential Diagnosis Differential Diagnoses: The differential diagnosis associated with the presentation includes As above Admission/Observation Consideration of admission/observation: Escalation of care including admission/observation considered Consult Healthcare Provider Management of the patient was discussed with: Hospitalist and Supervisor Statement Clerks Lab Data [facility] Lab Attestation statement: I reviewed the patient's lab results. 12/17/22 09:15 12/17/22 09:15 Labs: Lab Results 12/17/22 12/17/22 12/17/22 Range/Units 09:15 09:15 09:15 WBC 9.9 (4.8-10.8) X10*3/uL RBC 5.40 (4.20-5.50) X10*6/uL Hgb 14.6 (12.0-16.0) g/dl Hct 44.8 (37.0-47.0) % MCV 83.0 (80.0-98.0) fL MCH 27.0 (27.0-33.0) pg MCHC 32.6 (31.0-35.0) g/dl RDW 14.6 (11.0-16.0) % Plt Count 317 (160-400) X10*3/uL MPV 10.4 (9.4-12.3) fL Immature Gran % (Auto) 0.4 (0.0-0.4) % Neut % (Auto) 82.4 H (45-73) % Lymph % (Auto) 11.0 L (20-40) % Howard % (Auto) 3.3 (2-11) % Eos % (Auto) 2.6 (0-4) % Baso % (Auto) 0.3 (0-2) % Lymph # (Auto) 1.1 L (1.2-4.9) X10*3/uL Howard # (Auto) 0.3 (0.1-1.2) X10*3/uL Eos # (Auto) 0.3 (0.0-0.4) X10*3/uL Baso # (Auto) 0.0 (0.0-0.2) X10*3/uL Abs Immat Gran (auto) 0.04 H (0.00-0.03) X10*3/uL Absolute Neuts (auto) 8.2 (2.0-8.3) x10*3/uL Absolute Nucleated RBC 0.000 (0.0-0.012) X10*3/uL Nucleated RBC % (auto) 0.0 (0.0-0.2) /100WBC D-Dimer High Sensitivty 309 NG/ML Sodium (135-145) mmol/L Potassium (3.3-5.1) mmol/L Chloride (96-108) mmol/L Carbon Dioxide (22-29) mmol/L Anion Gap (12-20) BUN (9-16) mg/dL Creatinine (0.5-1.4) mg/dL Estim Creat Clear Calc Estimated GFR Random Glucose (60-115) mg/dL Calcium (8.4-10.2) mg/dL Magnesium (1.6-2.6) mg/dL Total Bilirubin (0.0-1.0) mg/dL Direct Bilirubin (0.0-0.5) mg/dL AST (5-31) U/L ALT (0-31) U/L Alkaline Phosphatase (39-117) U/L Troponin I High Sens < 2.7 (<3.5-17.0) ng/L Total Protein (6.5-8.0) g/dL Albumin (3.5-5.0) g/dL TSH (0.32-4.0) uIU/mL Beta HCG, Quant mIU/mL COVID-19 ([facility]) (Negative) COVID-19 Clin Com Influenza Type A (KIZZY) (Negative) Influenza Type B (KIZZY) (Negative) Influenza A & B Note S. pyogenes GrpA KIZZY (Negative) 12/17/22 12/17/22 12/17/22 Range/Units 09:22 09:22 09:22 WBC (4.8-10.8) X10*3/uL RBC (4.20-5.50) X10*6/uL Hgb (12.0-16.0) g/dl Hct (37.0-47.0) % MCV (80.0-98.0) fL MCH (27.0-33.0) pg MCHC (31.0-35.0) g/dl RDW (11.0-16.0) % Plt Count (160-400) X10*3/uL MPV (9.4-12.3) fL Immature Gran % (Auto) (0.0-0.4) % Neut % (Auto) (45-73) % Lymph % (Auto) (20-40) % Howard % (Auto) (2-11) % Eos % (Auto) (0-4) % Baso % (Auto) (0-2) % Lymph # (Auto) (1.2-4.9) X10*3/uL [place] # (Auto) (0.1-1.2) X10*3/uL Eos # (Auto) (0.0-0.4) X10*3/uL Baso # (Auto) (0.0-0.2) X10*3/uL Abs Immat Gran (auto) (0.00-0.03) X10*3/uL Absolute Neuts (auto) (2.0-8.3) x10*3/uL Absolute Nucleated RBC (0.0-0.012) X10*3/uL Nucleated RBC % (auto) (0.0-0.2) /100WBC D-Dimer High Sensitivty NG/ML Sodium (135-145) mmol/L Potassium (3.3-5.1) mmol/L Chloride (96-108) mmol/L Carbon Dioxide (22-29) mmol/L Anion Gap (12-20) BUN (9-16) mg/dL Creatinine (0.5-1.4) mg/dL Estim Creat Clear Calc Estimated GFR Random Glucose (60-115) mg/dL Calcium (8.4-10.2) mg/dL Magnesium (1.6-2.6) mg/dL Total Bilirubin (0.0-1.0) mg/dL Direct Bilirubin (0.0-0.5) mg/dL AST (5-31) U/L ALT (0-31) U/L Alkaline Phosphatase (39-117) U/L Troponin I High Sens (<3.5-17.0) ng/L Total Protein (6.5-8.0) g/dL Albumin (3.5-5.0) g/dL TSH (0.32-4.0) uIU/mL Beta HCG, Quant mIU/mL COVID-19 ([facility]) Negative (Negative) COVID-19 Clin Com See Note Influenza Type A (KIZZY) Negative (Negative) Influenza Type B (KIZZY) Negative (Negative) Influenza A & B Note See Note S. pyogenes GrpA KIZZY Negative (Negative) 12/17/22 12/17/22 Range/Units 11:15 12:35 WBC (4.8-10.8) X10*3/uL RBC (4.20-5.50) X10*6/uL Hgb (12.0-16.0) g/dl Hct (37.0-47.0) % MCV (80.0-98.0) fL MCH (27.0-33.0) pg MCHC (31.0-35.0) g/dl RDW (11.0-16.0) % Plt Count (160-400) X10*3/uL MPV (9.4-12.3) fL Immature Gran % (Auto) (0.0-0.4) % Neut % (Auto) (45-73) % Lymph % (Auto) (20-40) % Howard % (Auto) (2-11) % Eos % (Auto) (0-4) % Baso % (Auto) (0-2) % Lymph # (Auto) (1.2-4.9) X10*3/uL [place] # (Auto) (0.1-1.2) X10*3/uL Eos # (Auto) (0.0-0.4) X10*3/uL Baso # (Auto) (0.0-0.2) X10*3/uL Abs Immat Gran (auto) (0.00-0.03) X10*3/uL Absolute Neuts (auto) (2.0-8.3) x10*3/uL Absolute Nucleated RBC (0.0-0.012) X10*3/uL Nucleated RBC % (auto) (0.0-0.2) /100WBC D-Dimer High Sensitivty NG/ML Sodium 140 (135-145) mmol/L Potassium 4.4 (3.3-5.1) mmol/L Chloride 109 H (96-108) mmol/L Carbon Dioxide 21 L (22-29) mmol/L Anion Gap 14 (12-20) BUN 10 (9-16) mg/dL Creatinine 0.72 (0.5-1.4) mg/dL Estim Creat Clear Calc 104.0 Estimated GFR > 60 Random Glucose 90 (60-115) mg/dL Calcium 8.7 D (8.4-10.2) mg/dL Magnesium 1.8 (1.6-2.6) mg/dL Total Bilirubin 0.5 (0.0-1.0) mg/dL Direct Bilirubin 0.1 (0.0-0.5) mg/dL AST 21 (5-31) U/L ALT 18 (0-31) U/L Alkaline Phosphatase 60 (39-117) U/L Troponin I High Sens < 2.7 (<3.5-17.0) ng/L Total Protein 7.3 (6.5-8.0) g/dL Albumin 4.2 (3.5-5.0) g/dL TSH 0.63 (0.32-4.0) uIU/mL Beta HCG, Quant < 2 mIU/mL COVID-19 ([facility]) (Negative) COVID-19 Clin Com Influenza Type A (KIZZY) (Negative) Influenza Type B (KIZZY) (Negative) Influenza A & B Note S. pyogenes GrpA KIZZY (Negative) Independent Interpretation I performed an independent interpretation of an: EKG (EKG sinus tachycardia at a rate of 141. PR128. QTC 551. No STEMI) Radiology Impression Discussion of test interpretation with radiology: I have reviewed the ra diologist's reading. External Record Review External record reviewed: Inpatient record, Office record, Outpatient record, Prior outpatient labs, Prior outpatient radiology, Primary care record and Outside ED record Tests considered The following testing was considered but not selected: As above Critical Care Time Critical Care Time Critical Care Time: Yes Total Critical Care Time: 45 Attestation: I have personally provided critical care time exclusive of time spent on separately billable procedures. Time includes review of lab data, radiology results, discussion with consultants, and monitoring for potential decompensation. Intervention performed as documented. Discharge Plan Discharge Clinical Impression: Sinus tachycardia Patient Disposition: Admitted As Inpatient
[2022-12-17 09:19] LABS: MANUAL DIFF FLAG NO
[2022-12-17] MEDS: 0.9 % Sodium Chloride 1,000 ML 999 ML IV ×3 (09:21→13:54)
[2022-12-17 09:23] LABS: Basophils Percent Auto 0.3 % (0-2); Eosinophils Absolute Auto 0.3 X10*3/uL (0.0-0.4); Eosinophils Percent Auto 2.6 % (0-4); Hematocrit 44.8 % (37.0-47.0); Hemoglobin 14.6 g/dl (12.0-16.0); Imm Gran Abs Auto 0.04 X10*3/uL (0.00-0.03); Imm Gran Pct Auto 0.4 % (0.0-0.4); Lymphocytes Absolute Auto 1.1 X10*3/uL (1.2-4.9); Mean Corpuscular HGB Conc 32.6 g/dl (31.0-35.0); Mean Platelet Volume 10.4 fL (9.4-12.3); Monocytes Absolute Auto 0.3 X10*3/uL (0.1-1.2); Monocytes Percent Auto 3.3 % (2-11); Neutrophils Absolute Auto 8.2 x10*3/uL (2.0-8.3); Neutrophils Percent Auto 82.4 % (45-73); Platelet Count 317 X10*3/uL (160-400); Red Cell Distribution Width 14.6 % (11.0-16.0); White Blood Count 9.9 X10*3/uL (4.8-10.8)
[2022-12-17 09:30] LABS: D Dimer High Sensitivity 309 NG/ML
[2022-12-17 09:45] LABS: Troponin-I High Sensitivity < 2.7 ng/L (<3.5-17.0)
[2022-12-17 09:48] LABS: IDNOW Serial# 55D5AD1C
[2022-12-17 09:49] LABS: COVID-19 Test Negative (Negative)
[2022-12-17 09:56] LABS: IDNOW Serial# 08D9AD1C
[2022-12-17 09:57] LABS: IDNOW Serial# 9DB6401D; Influenza A Negative (Negative); Influenza B2 Negative (Negative); Strep A Nucleic Acid Negative (Negative)
--- NOTE | 2022-12-17 10:05 | PC.NURSE ---
Multiple attempts made to collect labs, phleb called.
[2022-12-17] MEDS: Butalb/Acetamin/Caff 50/325/40 TABLET 2 TAB PO (10:40)
--- NOTE | 2022-12-17 11:20 | PC.NURSE ---
Provider at bedside to attempt ultrasound IV, 2 unsuccessful attempts, RN w/ [address] ultasound, was able to collect one sst, phleb called to collect, situation explained, they will stay on stand by for further labs
[2022-12-17 11:27] VITALS: BP 127/80; PULSE 127; RESP 18; O2SAT 97
[2022-12-17 11:47] LABS: Alanine Aminotransferase 18 U/L (0-31); Albumin Level 4.2 g/dL (3.5-5.0); Alkaline Phosphatase 60 U/L (39-117); Anion Gap 14 (12-20); Aspartate Amino Transferase 21 U/L (5-31); Bilirubin Direct 0.1 mg/dL (0.0-0.5); Bilirubin Total 0.5 mg/dL (0.0-1.0); Blood Urea Nitrogen 10 mg/dL (9-16); Calcium 8.7 mg/dL (8.4-10.2); Carbon Dioxide 21 mmol/L (22-29); Chloride 109 mmol/L (96-108); Estimated Glomerular Filt Rate > 60; Glucose Random 90 mg/dL (60-115); Magnesium 1.8 mg/dL (1.6-2.6); Potassium 4.4 mmol/L (3.3-5.1); Sodium 140 mmol/L (135-145); Total Protein 7.3 g/dL (6.5-8.0)
[2022-12-17 12:00] VITALS: PULSE 136; RESP 18; O2SAT 98
[2022-12-17 12:05] LABS: HCG Quantitative < 2 mIU/mL; TSH reflex Free T4 0.63 uIU/mL (0.32-4.0)
[2022-12-17] MEDS: iohexoL 350 MG/ML 100 ML INFUS..BTL IV (12:08)
[2022-12-17 13:14] LABS: Troponin-I High Sensitivity < 2.7 ng/L (<3.5-17.0)
[2022-12-17] MEDS: Ketorolac Tromethamine 15 MG/ML VIAL IVPUSH (14:16)
[2022-12-17] MEDS: hydrOXYzine HCL 25 MG TABLET PO (14:16)
--- NOTE | 2022-12-17 15:55 | CA_ITS ---
Transthoracic Echocardiogram Patient (Last, First, Middle): Wanda Ochoa, Gender: Female Date of : 1995 Age: 27 Procedure Date: 12/17/2022 Procedure Type: Transthoracic Echocardiogram Location: [facility] Height: 154.94 cm Weight: 71.22 kg BSA: 1.70 m2 Heart Rate: bpm BP: 127 / 80 mmHg [place]man: Referring MD: Corrie DAVE Symptoms: persistent tachycardia Study Quality: Good ECG Rhythm: Sinus Tachycardia Conclusions: - The left ventricular systolic function is normal. The calculated ejection fraction is 65% by biplane method. - No obvious valvular pathology seen on this study. Findings Left Ventricle Normal left ventricular cavity size. There is normal left ventricular wall thickness. The left ventricular systolic function is normal. The calculated ejection fraction is 65% by biplane method. There is no evidence of regional wall motion abnormalities. Diastolic function is normal for age. Right Ventricle Normal right ventricular cavity size and systolic function. Atria Both atria are normal in size. Aortic Valve There is a normal trileaflet aortic valve. There is no aortic valve stenosis. There is no aortic valve regurgitation. Mitral Valve The mitral valve appears normal. There is no mitral valve regurgitation. There is no mitral valve stenosis. Pulmonic Valve The pulmonic valve is likely normal. Tricuspid Valve Normal tricuspid valve structure. There is trace tricuspid valve regurgitation. There is no evidence of pulmonary hypertension. Great Vessels The asc aorta is normal in size. Venous The inferior vena cava is normal in size and collapses greater than 50% with inspiration. Pericardium/Pleural There is no evidence of pericardial effusion. Prior Study Comparison No prior study available for comparison. Recommendations, Care & Conclusions No obvious valvular pathology seen on this study. Measurements 2D Linear Measurements IVSd: 0.85 0.6-0.9/0.6-1.0 cm LVIDd: 3.76 3.9-5.3/4.2-5.9 cm LVIDd Index: 2.21 2.4-3.2/2.2-3.1 cm/m2 LVIDs: 2.23 2.0-3.6 cm LVPWd: 0.89 0.7-1.1 cm Ao Root: 2.40 2.1-3.5 cm LA Diam: 3.10 2.7-3.8/3.0-4.0 cm LAIDs Index: 1.82 1.5-2.3 cm/m2 LV Mass: 117.27 67-162/88-224 g LV Mass Index: 68.99 43-95/49-115 g/m2 LVOT Diam: 2.10 3.0+(-)1.3 cm 2D Systolic Function EF 4C: 58.80 >55% EF 2C: 69.20 >55% EF BiP: 64.60 >55% Mitral Valve MV Pk E: 0.99 MV PK A: 1.20 MV Decel Time: 69.00 E/A: 0.80 E'Lateral: 12.40 E'Medial: 17.10 E/E' Med: 5.80 E/E' Lat: 8.00 PHT: 20.00 MVA PHT: 11.00 Decel [place]: 14.35 Aortic Valve AoV Pk Pierre: 1.75 AoV Mn Pierre: 1.08 AoV VTI: 0.26 AoV Pk Grad: 12.00 Aov Mn Grad: 6.00 BARBARA Cont.VTI: 2.32 LVOT LVOT Pk Pierre: 1.20 LVOT Mn Pierre: 0.72 LVOT VTI: 0.17 LVOT Pk Grad: 6.00 LVOT Mn Grad: 3.00 LVOT Diam: 2.10 LVOT Area: 3.46 Diastolic Function MV Pk E: 0.99 MV Pk A: 1.20 E/A: 0.80 E'Medial: 17.10 E/E' Med: 5.80 E' Laterial: 12.40 E/E' Lat: 8.00 Right Ventricle TVS' Pierre: 17.00 Tricuspid Valve TR Pk Pierre: 2.25 TR Pk Grad: 20.00 RA Press: 3.00 RVSP: 23.00 Great Vessels Aorta Ao Root-2D: 2.40 2.0-3.7 cm Ao Asc: 2.20 2.1-3.4 cm Pulmonary Valve PV Pk Pierre: 0.92 Peak PV Grad: 3.00 Updated in Other Vendor System with Status of Final Tan Rosado MD electronically signed on 12/18/2022 10:50:44 AM with status of Final
--- NOTE | 2022-12-17 16:00 | P.HPHOSP_ITS ---
History of Present Illness Date of Service: 12/17/22 Chief Complaint: chest pain, 27/F with chronic tachycardia of unclear etiology and is seen at [facility] cardiology has upcoming work up with echo and and holter. She is presenting to ED with a focal area of mid chest pain since this morning, assocated with subjective feve, cough, sore throat, and headache. Noted to be tachycardic with HR 130s at rest to 150s with activity, ECG shows sinus tach, additional testing include normal CBC, normal chemistry, normal TSH, normal LFTs, negative covid, negative test. CT chest no PE. Drug screen not yet done. Not on weight loss med or any other over the counter. Review of Systems Review of Systems: Gen: +subjective fever Resp: no sob, no cough CV: + chest, no GARCIA, no leg edema GI: No n/v, no abd pain Neuro: No confusion Yes all other systems are reviewed and are negative [facility] Medical History Low blood pressure Surgical History S/P abdominoplasty Social History Alcohol intake: never Patient Tobacco Use Status: Never used Tobacco Smoked in Last 30 Days: No Use of substances other than those prescribed or required for medical reasons: No Advance Directives: No Meds Allergies Allergy/AdvReac Type Severity Reaction Status Date / Time pollen extracts Allergy Mild Itchy Eyes Verified 12/17/22 09:05 Active Medications: Current Medications Pharmacy Consult (Consult Rx Perform Med Rec) 1 each MISCELLANE ONCE PRN PRN Reason: Consult order Home Medications Medication Instructions Recorded Confirmed Last Taken Type amitriptyline 25 mg tablet 25 mg PO BEDTIME 12/17/22 12/17/22 12/16/22 History cetirizine 10 mg tablet 10 mg PO DAILY 12/17/22 12/17/22 12/16/22 History Physical Exam Vital Signs and Narrative: Vital Signs: Last Vital Signs Temp 98.0 F 12/17/22 09:02 Pulse 136 H 12/17/22 12:00 Resp 18 12/17/22 12:00 BP 127/80 12/17/22 11:27 Pulse Ox 98 05/26/23 12:00 O2 Del Method Room Air 12/17/22 12:00 BMI result Body Mass Index 29.7 Const: Other: Constitutional: Alert, in no distress, overweight. Mental Status: Oriented to person, place and time. Eyes: Pupils are equal, round and reactive to light. Ear, Nose and Throat: Oropharynx clear, mucous membranes moist. Ears and nose without eformities. Trachea midline. Respiratory: Clear to auscultation. No wheezing, rales or rhonchi. Cardiovascular: S1 S2 regular. No murmurs, rubs or gallops. Gastrointestinal: Abdomen soft, non-tender, non-distended. Normal bowel sounds.? Neurologic: Cranial nerves II-XII grossly intact. No focal neurological deficits. Moves all extremities spontaneously.? Skin: No rashes or lesions.? Musculoskeletal: No cyanosis or clubbing. Psychiatric: Normal mood and affect? Results Labs 12/17/22 09:15 12/17/22 11:15 Labs: Laboratory Results - last 24 hr 12/17/22 12/17/22 12/17/22 09:15 09:15 09:15 MCV 83.0 MCH 27.0 MCHC 32.6 RDW 14.6 Plt Count 317 MPV 10.4 Immature Gran % (Auto) 0.4 Neut % (Auto) 82.4 H Lymph % (Auto) 11.0 L [place] % (Auto) 3.3 Eos % (Auto) 2.6 Baso % (Auto) 0.3 Lymph # (Auto) 1.1 L [place] # (Auto) 0.3 Eos # (Auto) 0.3 Baso # (Auto) 0.0 Abs Immat Gran (auto) 0.04 H Absolute Neuts (auto) 8.2 Absolute Nucleated RBC 0.000 Nucleated RBC % (auto) 0.0 D-Dimer High Sensitivty 309 Anion Gap Estim Creat Clear Calc Estimated GFR Random Glucose Calcium Magnesium Total Bilirubin Direct Bilirubin AST ALT Alkaline Phosphatase Troponin I High Sens < 2.7 Total Protein Albumin TSH Beta HCG, Quant COVID-19 ([facility]) COVID-19 Clin Com Influenza Type A (KIZZY) Influenza Type B (KIZZY) Influenza A & B Note S. pyogenes GrpA KIZZY 12/17/22 12/17/22 12/17/22 09:22 09:22 09:22 MCV MCH MCHC RDW Plt Count MPV Immature Gran % (Auto) Neut % (Auto) Lymph % (Auto) [place] % (Auto) Eos % (Auto) Baso % (Auto) Lymph # (Auto) [place] # (Auto) Eos # (Auto) Baso # (Auto) Abs Immat Gran (auto) Absolute Neuts (auto) Absolute Nucleated RBC Nucleated RBC % (auto) D-Dimer High Sensitivty Anion Gap Estim Creat Clear Calc Estimated GFR Random Glucose Calcium Magnesium Total Bilirubin Direct Bilirubin AST ALT Alkaline Phosphatase Troponin I High Sens Total Protein Albumin TSH Beta HCG, Quant COVID-19 ([facility]) Negative COVID-19 Clin Com See Note Influenza Type A (KIZZY) Negative Influenza Type B (KIZZY) Negative Influenza A & B Note See Note S. pyogenes GrpA KIZZY Negative 12/17/22 12/17/22 11:15 12:35 MCV MCH MCHC RDW Plt Count MPV Immature Gran % (Auto) Neut % (Auto) Lymph % (Auto) [place] % (Auto) Eos % (Auto) Baso % (Auto) Lymph # (Auto) [place] # (Auto) Eos # (Auto) Baso # (Auto) Abs Immat Gran (auto) Absolute Neuts (auto) Absolute Nucleated RBC Nucleated RBC % (auto) D-Dimer High Sensitivty Anion Gap 14 Estim Creat Clear Calc 104.0 Estimated GFR > 60 Random Glucose 90 Calcium 8.7 D Magnesium 1.8 Total Bilirubin 0.5 Direct Bilirubin 0.1 AST 21 ALT 18 Alkaline Phosphatase 60 Troponin I High Sens < 2.7 Total Protein 7.3 Albumin 4.2 TSH 0.63 Beta HCG, Quant < 2 COVID-19 ([facility]) COVID-19 Clin Com Influenza Type A (KIZZY) Influenza Type B (KIZZY) Influenza A & B Note S. pyogenes GrpA [facility]Y Imaging Radiologist's Impressions: Impressions Chest X-Ray 12/17/22 09:46 IMPRESSION: Unremarkable examination. Chest CTA 12/17/22 12:08 IMPRESSION: 1. No evidence of PE. 2. No evidence of aortic aneurysm. 3. The lungs are clear. 4. VTE: negative. Assessment and Plan (1) Sinus tachycardia: Status: Acute (2) Chest pain: Status: Acute Plan 27/F with chronic tachycardia, now with chest pain, viral symptoms 1/Tachycardia this is chronic is getting outpatient work up 2/ Chest pain very atypical, normal trop, no ischemic changes on ECG -Observe on alarm security or surveillance monitor -echo today -consider cardiology eval -hydrate 3/fever/cough/sore throat--i suspect viral uri, negative covid -check respiratory panel Time Spent With Patient Time: Total time managing care of this patient today ____ minutes. Quality Stroke Does the patient have a stroke diagnosis?: No VTE Prior VTE?: No VTE Risk Level:: Medical - low VTE Device Contraindication: Treatment Not Indicated VTE Drug Contraindication: Treatment Not Indicated
--- NOTE | 2022-12-17 16:49 | PHA.MEDREC ---
Pharmacy Consult ? Medication Reconciliation Pharmacy has completed the medication reconciliation. Pt states she is only on 2 medications (amitriptyline and ceterizine). I asked her directly about the sertraline she filled recently and she states she doesn't take it.
--- NOTE | 2022-12-17 17:06 | PC.NURSE ---
report given to admitting floor, all questions answered, pt to be brought up by transport
[2022-12-17 17:54] VITALS: BP 128/80; PULSE 151; RESP 19; TEMP 38; O2SAT 98
[2022-12-17] MEDS: Lactated Ringers 1,000 ML 125 ML IVCONT (18:05)
[2022-12-17] MEDS: Metoprolol Tartrate 25 MG TABLET PO (18:05)
[2022-12-17] MEDS: Acetaminophen 325 MG TABLET 650 MG PO (18:11)
[2022-12-17 18:42] LABS: Amphetamine Screen Urine Not Detected (Not Detect); Barbiturates, Urine POSITIVE (Not Detect); Benzodiazepines Screen Urine Not Detected (Not Detect); Cannabinoid Screen Urine Not Detected (Not Detect); Cocaine Screen Urine Not Detected (Not Detect); Fentanyl, urine Not Detected (Not Detect); Opiate Screen Urine Not Detected (Not Detect); Phencyclidine Screen Urine Not Detected (Not Detect)
[2022-12-17 19:39] VITALS: BP 118/65; PULSE 115; RESP 18; TEMP 37; O2SAT 98
[2022-12-17] MEDS: Ketorolac Tromethamine 30 MG/ML VIAL IVPUSH (20:00)
[2022-12-17] MEDS: Fluticasone Propionate Nasal 16 GM SPRAY 2 SPRAY NOSTRIL-B (22:16)
[2022-12-17 23:08] VITALS: BP 106/61; PULSE 105; RESP 18; TEMP 37; O2SAT 98
[2022-12-18] MEDS: 0.9 % Sodium Chloride Flush 3 ML SYRINGE IVFLUSH (00:04)
[2022-12-18] MEDS: Throat Lozenge, Medicated LOZENGE 1 LOZENGE MUCOUS MEM (00:16)
[2022-12-18] MEDS: Lactated Ringers 1,000 ML 125 ML IVCONT ×2 (02:53→10:29)
[2022-12-18] MEDS: Acetaminophen 325 MG TABLET 650 MG PO ×3 (02:58→14:16)
[2022-12-18 03:45] VITALS: BP 107/59; PULSE 117; RESP 18; TEMP 37.9; O2SAT 97
[2022-12-18 07:56] VITALS: BP 116/75; PULSE 111; RESP 18; TEMP 36.9; O2SAT 100
[2022-12-18] MEDS: Metoprolol Tartrate 25 MG TABLET PO (08:24)
--- NOTE | 2022-12-18 08:56 | P.PNIM_ITS ---
Subjective Subjective Date of Service: 12/18/22 Interval History: f/u on tacycardia, chest pain, uri symptoms, low grade temp still with uri symptoms, cough, chest pain, tachycardia is better with metoprolol Physical Exam Vital Signs: Vital Signs: Last Vital Signs Temp 98.5 F 12/18/22 07:56 Pulse 111 H 12/18/22 07:56 Resp 18 12/18/22 07:56 BP 116/75 12/18/22 07:56 Pulse Ox 100 12/18/22 07:56 O2 Del Method Room Air 12/18/22 07:56 BMI result Body Mass Index 29.7 Const: Other: General: AO X 3, no acute distress Resp: CTA bilateral CVS: S1,S2,RRR GI: +BS, NT, no distention Skin: No rash Neuro: motor grossly intact Psych: appropriate affect Objective Data Active Medications Acetaminophen (Acetaminophen 325 Mg Tablet) 650 mg PO Q6H PRN PRN Reason: Pain, Mild (Pain Scale 1-3) Last Admin: 12/18/22 08:23 Dose: 650 mg Documented By: HENRY Lactated Ringer's (Lr) 1,000 mls @ 125 mls/hr IVCONT .Q8H [facility] Last Admin: 12/18/22 02:53 Dose: 125 mls/hr Documented By: MEME Ibuprofen (Ibuprofen 400 Mg Tablet) 400 mg PO Q6H PRN PRN Reason: Fever or Pain, Mild (Pain Scale 1-3) Magnesium Hydroxide (Milk Of Magnesia 30 Ml Oral.Susp) 30 ml PO DAILY PRN PRN Reason: Constipation Melatonin (Melatonin 3 Mg Tablet) 6 mg PO BEDTIME PRN PRN Reason: Insomnia Metoprolol Tartrate (Metoprolol Tartrate 25 Mg Tablet) 25 mg PO TID [facility]; Protocol Last Admin: 12/18/22 08:24 Dose: 25 mg Documented By: HENRY Ondansetron HCl (Ondansetron Hcl 4 Mg/2 Ml Vial) 4 mg IVPUSH Q8H PRN PRN Reason: Nausea and Vomiting Pharmacy Consult (Consult Rx Perform Med Rec) 1 each MISCELLANE ONCE PRN PRN Reason: Consult order Sodium Chloride (0.9 % Sodium Chloride Flush 3 Ml Syringe) [facility] Last Admin: 12/18/22 08:24 Dose: Not Given Documented By: HENRY Non-Admin Reason: IV Running Labs 12/17/22 09:15 12/17/22 11:15 Labs: Laboratory Results - last 24 hr 12/17/22 12/17/22 12/17/22 09:15 09:15 09:15 MCV 83.0 MCH 27.0 MCHC 32.6 RDW 14.6 Plt Count 317 MPV 10.4 Immature Gran % (Auto) 0.4 Neut % (Auto) 82.4 H Lymph % (Auto) 11.0 L Mcculloch % (Auto) 3.3 Eos % (Auto) 2.6 Baso % (Auto) 0.3 Lymph # (Auto) 1.1 L Mcculloch # (Auto) 0.3 Eos # (Auto) 0.3 Baso # (Auto) 0.0 Abs Immat Gran (auto) 0.04 H Absolute Neuts (auto) 8.2 Absolute Nucleated RBC 0.000 Nucleated RBC % (auto) 0.0 D-Dimer High Sensitivty 309 Anion Gap Estim Creat Clear Calc Estimated GFR Random Glucose Calcium Magnesium Total Bilirubin Direct Bilirubin AST ALT Alkaline Phosphatase Troponin I High Sens < 2.7 Total Protein Albumin TSH Beta HCG, Quant Urine Opiates Screen Urine Fentanyl Screen Ur Barbiturates Screen Ur Phencyclidine Scrn Ur Amphetamines Screen U Benzodiazepines Scrn Urine Cocaine Screen U Marijuana (THC) Screen COVID-19 (SOLA) COVID-19 Clin Com Influenza Type A (KIZZY) Influenza Type B (KIZZY) Influenza A & B Note S. pyogenes GrpA KIZZY 12/17/22 12/17/22 12/17/22 09:22 09:22 09:22 MCV MCH MCHC RDW Plt Count MPV Immature Gran % (Auto) Neut % (Auto) Lymph % (Auto) Mcculloch % (Auto) Eos % (Auto) Baso % (Auto) Lymph # (Auto) Mcculloch # (Auto) Eos # (Auto) Baso # (Auto) Abs Immat Gran (auto) Absolute Neuts (auto) Absolute Nucleated RBC Nucleated RBC % (auto) D-Dimer High Sensitivty Anion Gap Estim Creat Clear Calc Estimated GFR Random Glucose Calcium Magnesium Total Bilirubin Direct Bilirubin AST ALT Alkaline Phosphatase Troponin I High Sens Total Protein Albumin TSH Beta HCG, Quant Urine Opiates Screen Urine Fentanyl Screen Ur Barbiturates Screen Ur Phencyclidine Scrn Ur Amphetamines Screen U Benzodiazepines Scrn Urine Cocaine Screen U Marijuana (THC) Screen COVID-19 (SOLA) Negative COVID-19 Clin Com See Note Influenza Type A (KIZZY) Negative Influenza Type B (KIZZY) Negative Influenza A & B Note See Note S. pyogenes GrpA KIZZY Negative 12/17/22 12/17/22 12/17/22 11:15 12:35 18:04 MCV MCH MCHC RDW Plt Count MPV Immature Gran % (Auto) Neut % (Auto) Lymph % (Auto) Mcculloch % (Auto) Eos % (Auto) Baso % (Auto) Lymph # (Auto) Mcculloch # (Auto) Eos # (Auto) Baso # (Auto) Abs Immat Gran (auto) Absolute Neuts (auto) Absolute Nucleated RBC Nucleated RBC % (auto) D-Dimer High Sensitivty Anion Gap 14 Estim Creat Clear Calc 104.0 Estimated GFR > 60 Random Glucose 90 Calcium 8.7 D Magnesium 1.8 Total Bilirubin 0.5 Direct Bilirubin 0.1 AST 21 ALT 18 Alkaline Phosphatase 60 Troponin I High Sens < 2.7 Total Protein 7.3 Albumin 4.2 TSH 0.63 Beta HCG, Quant < 2 Urine Opiates Screen Not Detected Urine Fentanyl Screen Not Detected Ur Barbiturates Screen POSITIVE H Ur Phencyclidine Scrn Not Detected Ur Amphetamines Screen Not Detected U Benzodiazepines Scrn Not Detected Urine Cocaine Screen Not Detected U Marijuana (THC) Screen Not Detected COVID-19 (SOLA) COVID-19 Clin Com Influenza Type A (KIZZY) Influenza Type B (KIZZY) Influenza A & B Note S. pyogenes GrpA KIZZY Assessment and Plan (1) Chest pain: Status: Acute (2) Sinus tachycardia: Status: Acute Plan 27/ with chronic tachycardia, now with chest pain, viral symptoms 1/Tachycardia this is chronic is getting outpatient work up 2/ Chest pain very atypical, normal trop, no ischemic changes on ECG -Observe on cardiac catheterization technician -echo result pending -cardiology eval pending -hydrate 3/fever/cough/sore throat--i suspect viral uri, negative covid respiratory panel pending, symptomatic treatment Time Spent With Patient Time: Total time managing care of this patient today ____ minutes. Quality Stroke Does the patient have a stroke diagnosis?: No VTE Prior VTE?: No VTE Risk Level:: Medical - low VTE Device Contraindication: Treatment Not Indicated VTE Drug Contraindication: Treatment Not Indicated
--- NOTE | 2022-12-18 09:38 | MHC.CM.PN ---
AUDI DELIVERED PT LIVES IN AN APT WITH CHILDREN. INDEPENDENT AT BASELINE. NO HCP, DECLINES TO COMPLETE ONE AT THIS TIME. +COVID VAX X3 PCP DR. COTTO AT [facility] [place]. DP: HOME, NO SERVICES ANTICIPATED. PT HAS CAR IN LOT BUT CAN GET A RIDE IF NEEDED. CM WILL CONTINUE TO FOLLOW FOR ANY CHANGE TO DC PLAN/NEEDS.
--- NOTE | 2022-12-18 10:51 | PM.CNCAR ---
History of Present Illness History of Present Illness Date of Service: 12/18/22 Chief complaint: chest pain, tachycardia Narrative: This is a cardiology consultation regarding sinus tachycardia. Patient has been having constitutional symptoms including fevers, cough, sore throat, headache extra. Some chest pain which is somewhat persistent. However, this is part of multiple other complaints. Overall, history suggestive of acute viral infection. Upon evaluation in the ER, she had persistent sinus tachycardia and hence that led to the hospitalization. She states that she has had some chest pains in the past, nonexertional random pains. That of an led to a stress test done at [facility]. According to her, she can get rapid heart rates for no reason. Other workup including echocardiogram is still apparently pending as an outpatient. In the interim, she got admitted here. No known diagnosed cardiovascular issues in the past. Review of Systems Review of Systems: Yes all other systems are reviewed and are negative Constitutional: Constitutional: Reports as per HPI, Reports no additional constitutional complaints, Reports fatigue, Reports fever(s), Reports headache(s), Reports lethargy and Reports malaise Eyes: Eyes: Reports as per HPI and Denies no additional eye complaints ENT: Denies system reviewed and no additional complaints, except as documented, Reports as per HPI and Reports headache(s) Cardiovascular: Cardiovascular: Reports as per HPI, Reports no additional cardiovascular complaints, Denies acrocyanosis, Denies cool extremities, Denies chest pain, Denies leg edema, Denies lightheadedness, Denies palpitations and Denies dyspnea Respiratory: Respiratory: Reports as per HPI, Denies no additional respiratory complaints and Denies dyspnea Gastrointestinal: Gastrointestinal: Reports as per HPI and Denies no additional gastrointestinal complaints Genitourinary: Genitourinary: Reports as per HPI Musculoskeletal: Musculoskeletal: Reports no additional musculoskeletal complaints and Reports as per HPI Integumentary/Breasts: Skin/Breast: Reports system reviewed and no additional complaints, except as docu Neurologic: Reports system reviewed and no additional complaints, except as documented, Reports as per HPI and Reports headache(s) Psychiatric: Psychiatric: Reports no additional psychiatric complaints and Reports as per HPI Endocrine: Endocrine: Reports no additional endocrine complaints, Reports as per HPI, Reports fatigue and Denies palpitations Hematologic/Lymphatic: Hematologic/Lymphatic: Reports no additional hematologic/lymphatic complaints and Reports as per HPI Allergic/Immunologic: Allergic/Immunologic: Reports no additional allergic/immunologic complaints and Reports as per [facility] Past Medical History Medical History Low blood pressure Family History Pertinent family history: Cardiac issues in father's side per patient. Surgical History Surgical History S/P abdominoplasty Social History Social History Alcohol intake: never Patient Tobacco Use Status: Never used Tobacco service: No Current occupational status: unemployed Meds Allergies Allergy/AdvReac Type Severity Reaction Status Date / Time pollen extracts Allergy Mild Itchy Eyes Verified 12/17/22 09:05 Active Medications: Current Medications Acetaminophen (Acetaminophen 325 Mg Tablet) 650 mg PO Q6H PRN PRN Reason: Pain, Mild (Pain Scale 1-3) Last Admin: 12/18/22 08:23 Dose: 650 mg Lactated Ringer's (Lr) 1,000 mls @ 125 mls/hr IVCONT .Q8H [facility] Last Admin: 12/18/22 10:29 Dose: 125 mls/hr Ibuprofen (Ibuprofen 400 Mg Tablet) 400 mg PO Q6H PRN PRN Reason: Fever or Pain, Mild (Pain Scale 1-3) Magnesium Hydroxide (Milk Of Magnesia 30 Ml Oral.Susp) 30 ml PO DAILY PRN PRN Reason: Constipation Melatonin (Melatonin 3 Mg Tablet) 6 mg PO BEDTIME PRN PRN Reason: Insomnia Metoprolol Tartrate (Metoprolol Tartrate 25 Mg Tablet) 25 mg PO TID [facility]; Protocol Last Admin: 12/18/22 08:24 Dose: 25 mg Ondansetron HCl (Ondansetron Hcl 4 Mg/2 Ml Vial) 4 mg IVPUSH Q8H PRN PRN Reason: Nausea and Vomiting Pharmacy Consult (Consult Rx Perform Med Rec) 1 each MISCELLANE ONCE PRN PRN Reason: Consult order Sodium Chloride (0.9 % Sodium Chloride Flush 3 Ml Syringe) 3 ml IVFLUSH QSHIFT [facility] Last Admin: 12/18/22 08:24 Dose: Not Given Home Medications Medication Instructions Recorded Confirmed Last Taken Type amitriptyline 25 mg tablet 25 mg PO BEDTIME 12/17/22 12/17/22 12/16/22 History cetirizine 10 mg tablet 10 mg PO DAILY 12/17/22 12/17/22 12/16/22 History Physical Exam Vital Signs: Vital Signs: Last Vital Signs Temp 98.5 F 12/18/22 07:56 Pulse 111 H 12/18/22 07:56 Resp 18 12/18/22 07:56 BP 116/75 12/18/22 07:56 Pulse Ox 100 12/18/22 07:56 O2 Del Method Room Air 12/18/22 07:56 BMI result Body Mass Index 29.7 Const: General: comfortable and no acute distress Orientation/consciousness: patient oriented x3 HEENT: Other: Unremarkable Head: Yes normal to inspection Neck: Neck: Yes normal visual inspection Chest: Chest palpation & inspection: normal inspection of the chest Resp: Auscultation: clear to auscultation bilaterally Cardio: Palpation: normal PMI Heart sounds: S1 normal heart sound present, S2 normal heart sound present, no gallops, no murmurs and no rubs GI: Palpation (GI): Soft to palpation Back/Spine/Pelvis: Other: unremarkable Skin: General skin exam: no rashes or lesions noted Neuro: General: patient oriented x3 Extrem: General: Yes normal to inspection Psych: Mental Status: mental status grossly normal Objective Labs and Meds 12/17/22 09:15 12/17/22 11:15 Lab results: Laboratory Results - last 24 hr 12/17/22 12/17/22 12/17/22 11:15 12:35 18:04 Sodium 140 Potassium 4.4 Chloride 109 H Carbon Dioxide 21 L Anion Gap 14 BUN 10 Creatinine 0.72 Estim Creat Clear Calc 104.0 Estimated GFR > 60 Random Glucose 90 Calcium 8.7 D Magnesium 1.8 Total Bilirubin 0.5 Direct Bilirubin 0.1 AST 21 ALT 18 Alkaline Phosphatase 60 Troponin I High Sens < 2.7 Total Protein 7.3 Albumin 4.2 TSH 0.63 Beta HCG, Quant < 2 Urine Opiates Screen Not Detected Urine Fentanyl Screen Not Detected Ur Barbiturates Screen POSITIVE H Ur Phencyclidine Scrn Not Detected Ur Amphetamines Screen Not Detected U Benzodiazepines Scrn Not Detected Urine Cocaine Screen Not Detected U Marijuana (THC) Screen Not Detected ECG Interpretation: EKG shows sinus tachycardia at 141/Min. On telemetry, still sinus tachycardia but much lower at around 110 to 115/Min. Imaging Radiologist's impression: Impressions Chest CTA 12/17/22 12:08 IMPRESSION: 1. No evidence of PE. 2. No evidence of aortic aneurysm. 3. The lungs are clear. 4. VTE: negative. Assessment and Plan (1) Sinus tachycardia: Status: Acute (2) Upper respiratory infection: Status: Acute Plan Chest CT scan with no evidence of pericardial effusion. No pulmonary embolism. No aortic aneurysm. Clear lungs. High sensitivity troponins are negative x2. Overall, suspect while infection with pleuritic type symptoms. As the troponins are negative, unlikely to be myocarditis. Echocardiogram also reviewed and there is unremarkable with normal LVEF and valves are unremarkable. Mainly reassurance from cardiac. Okay to use empiric beta-blockers the heart rate persistently high. Viral serologies still seen pending. Discussed with . Time Spent With Patient Time: Total time managing care of this patient today 75 minutes. This includes time spent in review of chart, laboratory data, imaging studies, review of telemetry, counseling patient, discussion with hospitalist, RN, documentation, coordination of care. Procedures Date of Service Date of Service: 12/18/22
[2022-12-18 11:54] VITALS: BP 116/73; PULSE 110; RESP 20; TEMP 36.8; O2SAT 100
[2022-12-18 14:58] LABS: Adenovirus PCR Not Detected (Not Detect.); Bordetella parapertussis PCR Not Detected (Not Detect.); Bordetella pertussis PCR Not Detected (Not Detect.); Chlamydia pneumoniae PCR Not Detected (Not Detect.); Coronavirus 229E PCR Not Detected (Not Detect.); Coronavirus HKU1 PCR Not Detected (Not Detect.); Coronavirus NL63 PCR Not Detected (Not Detect.); Coronavirus OC43 PCR Not Detected (Not Detect.); Human metapneumovirus PCR Not Detected (Not Detect.); Influenza A PCR Not Detected (Not Detect.); Influenza B PCR Not Detected (Not Detect.); Rhino/Enterovirus PCR Detected (Not Detect.); SARS-CoV-2 PCR Not Detected (Not Detect.)
[2022-12-18 14:59] LABS: Mycoplasma pneumoniae PCR Not Detected (Not Detect.); Parainfluenza 1 PCR Not Detected (Not Detect.); Parainfluenza 2 PCR Not Detected (Not Detect.); Parainfluenza 3 PCR Not Detected (Not Detect.); Parainfluenza 4 PCR Not Detected (Not Detect.); RSV PCR Not Detected (Not Detect.)
[2022-12-18 15:23] VITALS: BP 101/64; PULSE 105; RESP 17; TEMP 36.8; O2SAT 99
[2022-12-18] MEDS: Ibuprofen 400 MG TABLET PO (18:34)
[2022-12-18 19:12] VITALS: BP 101/58; PULSE 103; RESP 17; TEMP 36.6; O2SAT 99
[2022-12-18] MEDS: Metoprolol Tartrate 50 MG TABLET PO (21:34)
[2022-12-19] VITALS: BP 111/57; PULSE 88; RESP 20; TEMP 37.1; O2SAT 100
[2022-12-19 03:54] VITALS: BP 99/58; PULSE 92; RESP 20; TEMP 36.7; O2SAT 97
[2022-12-19 07:33] VITALS: BP 115/64; PULSE 81; RESP 20; TEMP 36.6; O2SAT 100
--- NOTE | 2022-12-19 07:33 | PM.DS ---
DS: Providers Provider Date of Service: 12/19/22 Date of admission: 12/17/22 16:32 Primary care physician: None Physician Consults: 12/17/22 17:24 Consult to Cardiology Routine Consulting Provider: [facility] Reason for consultation: chest pain, tachycardia Has provider been notified: Yes DS: Diagnosis Discharge Diagnosis (1) Sinus tachycardia: Status: Acute (2) Upper respiratory infection: Status: Acute DS: Summary Hospital Course Hospital Course: Chief Complaint: chest pain, 27/F? with chronic tachycardia of unclear etiology? and is seen at [facility] cardiology has upcoming work up? with echo and and holter. She is presenting to? ED with a focal area of mid chest pain since this morning, assocated with? subjective feve, cough, sore throat, and headache. Noted to be tachycardic with? HR 130s at rest to 150s with activity, ECG shows sinus tach, additional testing include normal CBC, normal chemistry, normal TSH, normal LFTs,? negative covid, negative test. CT chest no PE. Drug screen not yet done.? Not on weight loss med or any other over the counter. Hospital course: She presented with chest pain and found to be tachycardic but has history of chronic tachycardia which is being worked up on outpatient basis, she was suffering from URI, covid negative but viral respiaratory panel revealed entero/Rhino virus. She was montor on telemetry , troponin was negative. She had Echo which showed:- The left ventricular systolic function is normal.? The ? calculated ejection fraction is 65% by biplane method. ? 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 Time Spent with Patient Time attestation: Total time managing care of this patient today ____ minutes. Discharge coordination time: Greater than 30 minutes Quality: Safe Use of Opioids Does Pt have an Active Cancer Diagnosis on the Problem List?: No Quality: Stroke Does the patient have a stroke diagnosis?: No Physical Exam Vital Signs: Vital Signs: Last Vital Signs Temp 98.0 F 12/19/22 03:54 Pulse 92 12/19/22 03:54 Resp 20 12/19/22 03:54 BP 99/58 L 12/19/22 03:54 Pulse Ox 97 12/19/22 03:54 O2 Del Method Room Air 12/19/22 03:54 BMI result Body Mass Index 29.7 DS: Data Data Completed and Pending Labs on day of discharge: Laboratory Results - last 24 hr 12/17/22 17:57 Respiratory Panel [place] See Note Adenovirus (Rapid PCR) Not Detected B.pert (TEM-PCR) Not Detected B.parapertussis DNA PCR Not Detected C. pneumoniae DNA (PCR) Not Detected Coronavirus OC43 (PCR) Not Detected Coronavirus HKU1 (PCR) Not Detected Coronavirus 229E (PCR) Not Detected Coronavirus NL63 (PCR) Not Detected Human Metapneumovir PCR Not Detected Influenza A (RT-PCR) Not Detected Influenza B (RT-PCR) Not Detected M. pneumoniae (PCR) Not Detected Parainfluenza 1 (PCR) Not Detected Parainfluenza 2 (PCR) Not Detected Parainfluenza 3 (PCR) Not Detected Parainfluenza 4 (PCR) Not Detected RSV (PCR) Not Detected Entero/Rhino (PCR) Detected A SARS-CoV-2 RNA (RT-PCR) Not Detected Discharge Plan Discharge Patient Disposition: Home, Self-Care Discharge Diagnosis: Chest pain, Viral URI, chronic tachycardia Referrals: Physician,None [Primary Care Provider] - 1 Week Discharge Medications: No Action cetirizine 10 mg tablet 10 mg PO DAILY amitriptyline 25 mg tablet 25 mg PO BEDTIME Diet: Advance to usual diet Activity on Discharge: As tolerated Stand Alone Forms: Patient Portal Discharge page Care Plan Goals: full recovery from upper respiratory tract viral infection, control of chronic tachcyardia (High heart rate) Health Concerns: chronic high heart rate viral upper respiratory syndrome Plan of Treatment: take Metoprolol as recommeneded follow up with your heart doctor viral upper respiratory infection should resolved on its and needs no specific treatment if needed you can take over the counter pain such as motrin or tyelenol or cough medication such as robitussin drink plenty of fluid Assessment: as above
[2022-12-19] MEDS: Metoprolol Tartrate 50 MG TABLET PO (07:57)
--- NOTE | 2022-12-19 09:37 | MHC.CM.PN ---
Addendum entered by Nicole Owusu 12/19/22 09:54: PT WILL LEAVE CAR IN LOT AND WILL HAVE A RIDE HOME FROM FAMILY. Original Note: DP: PT HAS BEEN MEDICALLY CLEARED FOR DC HOME, NO SERVICES. HAS CAR IN [email or web address].
== END 2022-12-19 11:27 | disposition home or self-care (01) ==
LOC: HO.ED 15:48 → HO.EDOVER 16:45 → HO.IMC 16:53
PROVIDERS: Physician Assistant; Admitting Provider Internal Medicine; Emergency Provider Emergency Medicine; Visit Provider Internal Medicine
DX: R00.0 Tachycardia, unspecified (principal); J06.9 Acute upper respiratory infection, unspecified; R07.9 Chest pain, unspecified; J02.9 Acute pharyngitis, unspecified; J34.89 Other specified disorders of nose and nasal sinuses; R00.2 Palpitations; R06.02 Shortness of breath; R51.9 Headache, unspecified; Z20.822 Contact with and (suspected) exposure to COVID-19
CPT/HCPCS: 36415; 71046; 71275; 80048; 80076; 80307; 83735; 84443; 84484; 84702; 85025; 85379; 87502; 87633; 87635; 87651; 93005; 93306; 96361; 96374; 96375; 99222; 99285; J1885; Q9967

== ENCOUNTER 2024-01-03 03:13 | Emergency (ER) | payer MEDICAID, SELFPAY ==
--- NOTE | 2024-01-03 | ECG_ITS ---
Test Reason : SOB Blood Pressure : / mmHG Vent. Rate : 146 BPM Atrial Rate : 146 BPM P-R Int : 104 ms QRS Dur : 068 ms QT Int : 290 ms P-R-T Axes : 000 046 028 degrees QTc Int : 452 ms Sinus tachycardia Nonspecific ST and T wave abnormality Abnormal ECG No significant changes when compared with the previous EKG of 17 dec 2022 Referred By: Generic ED Physician Electronically Signed By:LUDA DEE
--- NOTE | ~2024-01-03 | CT_ITS ---
EXAMINATION: CT ABDOMEN AND PELVIS WITH CONTRAST CLINICAL INFORMATION: Abdominal pain. COMPARISON: 06/14/2022 TECHNIQUE: Multidetector volumetric images were obtained from the superior aspect of the liver through the pubic symphysis following administration 85 mL of Omnipaque 350 intravenous contrast. Sagittal and coronal reformatted images were obtained on the technologist's workstation. Oral contrast: No This CT examination was performed using dose optimization techniques as appropriate, variously including the following: *Automated exposure control *Adjustment of mA and/or kV according to patient size (this includes techniques or standardized protocols for targeted exams where dose is matched to indication/reason for exam; i.e. extremities or head) *Use of iterative reconstruction technique DLP: 525 mGy-cm FINDINGS: LUNG BASES: The visualized lung bases are unremarkable. LIVER, GALLBLADDER, AND BILIARY TREE: The liver is normal in size, shape, and attenuation. No focal hepatic lesion or biliary ductal dilatation is present. The gallbladder is unremarkable with no evidence of radiopaque gallstones, gallbladder wall thickening, or obvious pericholecystic inflammatory changes. PANCREAS: Unremarkable. SPLEEN: Unremarkable. ADRENAL GLANDS: Unremarkable. KIDNEYS AND URETERS: The kidneys are normal in size, shape, and attenuation. No hydronephrosis, hydroureter, or calculi seen. No perinephric stranding. Subcentimeter cyst lower pole right kidney. BLADDER: Unremarkable. GASTROINTESTINAL TRACT: Retained stool. The appendix is visualized and is within normal limits. ABDOMINAL WALL: No significant hernia is appreciated. LYMPH NODES: Normal. VASCULAR: Unremarkable. PELVIC VISCERA: An IUD in place. OSSEOUS STRUCTURES: Unremarkable. CT/CT abdomen pelvis w IV con IMPRESSION: 1. No acute abnormality within the abdomen or pelvis. 2. Retained stool throughout the colon. Fleischner guidelines were followed.
[2024-01-03 03:22] VITALS: BP 128/78; PULSE 145; RESP 22; TEMP 38.1; O2SAT 98; BMI 29.2
[2024-01-03 04:05] VITALS: BP 131/82; PULSE 141; RESP 20; TEMP 39.2; O2SAT 98
[2024-01-03 04:05] LABS: Hematocrit 39.2 % (37.0-47.0); Hemoglobin 13.1 g/dl (12.0-16.0); Mean Corpuscular HGB Conc 33.4 g/dl (31.0-35.0); Mean Corpuscular Hemoglobin 27.8 pg (27.0-33.0); Mean Corpuscular Volume 83.1 fL (80.0-98.0); Mean Platelet Volume 10.6 fL (9.4-12.3); Platelet Count 250 X10*3/uL (160-400); Red Blood Count 4.72 X10*6/uL (4.20-5.50); Red Cell Distribution Width 14.2 % (11.0-16.0); White Blood Count 10.5 X10*3/uL (4.8-10.8)
[2024-01-03 04:06] LABS: Appearance Urine Clear; Color Urine Yellow; Glucose Urine UA Negative (Negative); Leukocyte Esterase Urine Small (1+) (Negative); Nitrite Urine Negative (Negative); PH 6.5 (5.0-9.0); UMIC TRIGGER UACC YES; Urine Blood Negative (Negative); Urine Ketones Negative (Negative); Urine Protein Negative (Neg-Trace)
--- NOTE | 2024-01-03 04:11 | MHC.EDTECH ---
Patient brought from the waiting room,changed into hospital attire,placed on the radiographer cardiac catheterization,vitals taken temp is 102.5 HR is 141 RN aware,urine sample obtained and sent to lab.
[2024-01-03 04:20] LABS: Bacteria Urine 1+ (None Seen); Hyaline Casts Urine 0-2 /LPF (0-2); RBC Urine 0-2 /HPF (0-2); UACC Culture Trigger YES
[2024-01-03 04:21] LABS: Alanine Aminotransferase 45 U/L (0-31); Albumin Level 4.5 g/dL (3.5-5.0); Alkaline Phosphatase 68 U/L (39-117); Anion Gap 14 (12-20); Aspartate Amino Transferase 31 U/L (5-31); Bilirubin Total 0.4 mg/dL (0.0-1.0); Blood Urea Nitrogen 9 mg/dL (9-16); Calcium 9.4 mg/dL (8.4-10.2); Carbon Dioxide 21 mmol/L (22-29); Chloride 107 mmol/L (96-108); Creatinine Clr Calc Pharmacy 99.5; Estimated Glomerular Filt Rate > 60; Glucose Random 118 mg/dL (60-115); Lipase 21 U/L (8-78); Potassium 3.6 mmol/L (3.3-5.1); Sodium 138 mmol/L (135-145); Total Protein 7.9 g/dL (6.5-8.0)
[2024-01-03] MEDS: Acetaminophen 325 MG TABLET 975 MG PO (04:30)
[2024-01-03] MEDS: Ibuprofen 400 MG TABLET PO (04:31)
[2024-01-03 04:47] VITALS: BP 116/78; PULSE 136; RESP 18; TEMP 37.6; O2SAT 98
[2024-01-03 04:58] LABS: Influenza A PCR NEGATIVE (Negative); Influenza B PCR NEGATIVE (Negative); Resp Syncy Virus RNA Qual PCR NEGATIVE (Negative); SARS COV2 PCR INHOUSE NEGATIVE (Negative)
[2024-01-03 05:01] LABS: HCG Quantitative < 2 mIU/mL
--- NOTE | 2024-01-03 05:13 | ED_ITS ---
HPI - General Adult General Chief complaint: General Medical Stated complaint: Diff breathing/Chest pain/L flank pain Time Seen by Provider: 01/03/24 04:29 Source: patient Mode of arrival: ambulatory History of Present Illness ED Provider: Dr Mcfarlane HPI narrative: 28-year-old female with history of hypertension and depression states that she began having left-sided abdominal pain that extended across her abdomen now with some nausea, coughing and shortness of breath, she also reports urinary symptoms. Patient states she is off of her metoprolol as she does not currently have a primary care doctor. She denies any smoking and denies consistent alcohol use Related Data Home Medications ?Medication ?Instructions ?Recorded ?Confirmed amitriptyline 25 mg tablet 25 mg PO BEDTIME 12/17/22 12/17/22 cetirizine 10 mg tablet 10 mg PO DAILY 12/17/22 12/17/22 Previous Rx's ?Medication ?Instructions ?Recorded metoprolol succinate 25 mg 25 mg PO DAILY #15 tabs 12/19/22 tablet,extended release 24 hr (Toprol XL) Allergies Allergy/AdvReac Type Severity Reaction Status Date / Time pollen extracts Allergy Mild Itchy Eyes Verified 01/03/24 03:25 Review of Systems 2 Review of Systems: Pertinent positives and negatives as stated in HPI REPLACED BY [facility] Past Medical History Source: nursing notes reviewed Medical History Low blood pressure Surgical History S/P abdominoplasty Social History Social History Alcohol intake: never Patient Tobacco Use Status: Never used Tobacco Advance Directives: No Advance Directives Information Provided: Yes Do you have a plan to hurt others: No Plan service: No Current occupational status: unemployed Physical Exam ED Vital Signs: Vital Signs - 24 hr 01/03/24 03:22 01/03/24 04:05 01/03/24 04:47 Temperature 100.5 F H 102.5 F H 99.6 F Pulse Rate 145 H 141 H 136 H Respiratory Rate 22 H 20 18 Blood Pressure 128/78 131/82 116/78 Pulse Oximetry 98 98 98 Oxygen Delivery Method Room Air Room Air Room Air BMI result Body Mass Index 29.2 VITAL SIGNS: Reviewed. GENERAL: Well developed, well nourished, in no acute distress. HEAD: Normocephalic/atraumatic EYES: PERRLA, EOMI EARS: Ext canals without abnormality, TMs non-bulging and non-erythematous NOSE: Nares patent bilateral OROPHARYNX: no oral lesions noted, posterior pharynx clear and non-erythematous without noted tonsillar enlargement/erythema/exudates NECK: Supple, no adenopathy LUNGS: Normal breath sounds. No adventitious sounds or accessory muscle use. SpO2<98> CARDIOVASCULAR: Regular rate and rhythm without noted murmurs, no JVD or lower extremity edema. ABDOMEN: Soft, diffuse abd pain, non-distended with bowel sounds. MUSCULOSKELETAL: No tenderness, deformities, or effusions noted on gross inspection. EXTREMITIES: No cyanosis, clubbing or edema. SKIN: Inspection of the skin reveals no rashes NEUROLOGIC: Alert and oriented x 4. Strength and sensation to light touch were grossly intact x 4. Medications Administered Discontinued Medications Generic Name Dose Route Start Last Admin Trade Name Freq PRN Reason Stop Dose Admin Acetaminophen 975 mg 01/03/24 04:19 01/03/24 04:30 Acetaminophen 325 Mg Tablet PO 01/03/24 04:20 975 mg ONCE ONE Administration Sodium Chloride 1,000 mls @ 999 mls/hr 01/03/24 04:45 01/03/24 05:21 Ns IV 01/03/24 05:45 999 mls/hr .Q1H1M SONAM Administration Ibuprofen 400 mg 01/03/24 04:19 01/03/24 04:31 Ibuprofen 400 Mg Tablet PO 01/03/24 04:20 400 mg ONCE ONE Administration Iohexol 85 ml 01/03/24 05:23 01/03/24 05:23 Iohexol 350 Mg/Ml 100 Ml Infus..Btl IV 01/03/24 05:24 85 ml ONCE ONE Administration Medical Decision Making Medical Decision Making MDM Narrative: 28-year-old female with history and clinical presentation, DDX: Pyelonephritis, renal colic, pancreatitis, pneumonia, viral illness I reviewed all investigations and hematologic indices are negative for leukocytosis/anemia/thrombocytopenia. Chemistry indices are negative for BHAVIK/electrolyte/liver enzyme derangements. Beta hCG is undetectable. Urinalysis with trace WBC and bacteria present. Viral testing negative for influenza/RSV/COVID-19. Patient arrives tachycardic and febrile, IV fluids and antipyretics were administered. QTC is noted to be prolonged and patient will receive magnesium sulfate [address] out to Dr Mcneal - f/u CT scan Differential Diagnosis Differential Diagnoses: The differential diagnosis associated with the presentation includes Please see the discussion above Admission/Observation Consideration of admission/observation: Escalation of care including admission/observation considered Please see the discussion above Lab Data MDM Lab Attestation statement: I reviewed the patient's lab results. Please see the discussion above 01/03/24 03:59 01/03/24 03:59 Labs: Lab Results 01/03/24 01/03/24 01/03/24 Range/Units 03:59 04:16 05:43 WBC 10.5 (4.8-10.8) X10*3/uL RBC 4.72 (4.20-5.50) X10*6/uL Hgb 13.1 (12.0-16.0) g/dl Hct 39.2 (37.0-47.0) % MCV 83.1 (80.0-98.0) fL MCH 27.8 (27.0-33.0) pg MCHC 33.4 (31.0-35.0) g/dl RDW 14.2 (11.0-16.0) % Plt Count 250 (160-400) X10*3/uL MPV 10.6 (9.4-12.3) fL Absolute Nucleated RBC 0.000 (0.0-0.012) X10*3/uL Nucleated RBC % (auto) 0.0 (0.0-0.2) /100WBC Sodium 138 (135-145) mmol/L Potassium 3.6 (3.3-5.1) mmol/L Chloride 107 (96-108) mmol/L Carbon Dioxide 21 L (22-29) mmol/L Anion Gap 14 (12-20) BUN 9 (9-16) mg/dL Creatinine 0.77 (0.5-1.4) mg/dL Estim Creat Clear Calc 99.5 Estimated GFR > 60 Random Glucose 118 H (60-115) mg/dL Lactic Acid 0.8 (0.5-2.0) mmol/L Calcium 9.4 D (8.4-10.2) mg/dL Total Bilirubin 0.4 (0.0-1.0) mg/dL AST 31 (5-31) U/L ALT 45 H (0-31) U/L Alkaline Phosphatase 68 (39-117) U/L Total Protein 7.9 (6.5-8.0) g/dL Albumin 4.5 (3.5-5.0) g/dL Lipase 21 (8-78) U/L Beta HCG, Quant < 2 mIU/mL Urine Color Yellow Urine Appearance Clear Urine pH 6.5 (5.0-9.0) Ur Specific [place] 1.020 (1.005-1.025) Urine Protein Negative (Neg-Trace) mg/dL Urine Glucose (UA) Negative (Negative) mg/dL Urine Ketones Negative (Negative) mg/dL Urine Blood Negative (Negative) Urine Nitrite Negative (Negative) Ur Leukocyte Esterase Small (1+) H (Negative) Urine RBC 0-2 (0-2) /HPF Urine WBC 6-10 (0-5) /HPF Ur Squamous Epith Cells 3-5 (0-2) /HPF Urine Bacteria 1+ (None Seen) Hyaline Casts 0-2 (0-2) /LPF Influenza Type A (PCR) NEGATIVE (Negative) Influenza Type B (PCR) NEGATIVE (Negative) RSV RNA Qual (PCR) NEGATIVE (Negative) SARS-CoV-2 RNA (RT-PCR) NEGATIVE (Negative) Independent Interpretation I performed an independent interpretation of an: EKG Interpretation: Sinus tachycardia, HR-146, no STEMI, CT/QRS is within normal limits but QTC appears to be prolonged. Discharge Plan Discharge Clinical Impression: Flank pain, Chest pain Patient Disposition: Still a Patient Prescriptions: No Action cetirizine 10 mg tablet 10 mg PO DAILY amitriptyline 25 mg tablet 25 mg PO BEDTIME metoprolol succinate [Toprol XL] 25 mg tablet extended release 24 hr 25 mg PO DAILY Qty: 15 0RF Print Language: Upper Sorbian
[2024-01-03] MEDS: 0.9 % Sodium Chloride 1,000 ML 999 ML IV (05:21)
[2024-01-03] MEDS: iohexoL 350 MG/ML 100 ML INFUS..BTL 85 ML IV (05:23)
--- NOTE | 2024-01-03 05:49 | MHC.EDTECH ---
Blood cultures and lactic drawn and sent to lab
[2024-01-03 06:03] LABS: Lactic Acid 0.8 mmol/L (0.5-2.0)
[2024-01-03 07:36] VITALS: BP 101/65; PULSE 126; RESP 18; TEMP 37; O2SAT 96
[2024-01-03] MEDS: Magnesium Sulfate/H2O 2 GM/50 ML PIGGYBACK IV (07:48)
--- NOTE | 2024-01-03 08:09 | PC.NURSE ---
this RN resumed care of pt at 0700. pt sinus tachy on the property assessment monitor - HR between 120-130 bpm. pt verbalizes feeling palpitations which she has had since coming in. ekg already performed. pt verbalizes no change in sensation. denies chest pain. pt slightly hypotensive. will reassess s/p IVF infusion. otherwise vss and up to date. pt resting comfortably in stretcher in no apparent distress. pt verbalizing slight discomfort in LLQ that radiates to left flank. CT results still pending at this time. medication administered per provider order. no sob/wob noted. respirations even/unlabored. plan of care ongoing. call dunlap placed within reach.
[2024-01-03 09:30] VITALS: BP 98/61; PULSE 113; RESP 16; TEMP 36.7; O2SAT 99
--- NOTE | 2024-01-03 09:31 | PC.NURSE ---
pt remains sinus tachy/hypotensive s/p IVF infusion. provider notified/aware.
[2024-01-03] MEDS: Doxycycline Monohydrate 100 MG CAPSULE PO (13:57)
[2024-01-03] MEDS: Cyclobenzaprine HCl 10 MG TABLET PO (14:15)
== END 2024-01-03 14:23 | disposition home or self-care (01) ==
PROVIDERS: Student in an Organized Health Care Education/Training Program; Emergency Provider Emergency Medicine
DX: R06.02 Shortness of breath (principal); R07.89 Other chest pain; R10.32 Left lower quadrant pain; R11.2 Nausea with vomiting, unspecified; Z03.818 Encounter for observation for suspected exposure to other biological agents ruled out; Z79.899 Other long term (current) drug therapy
CPT/HCPCS: 0241U; 36415; 74177; 80053; 81001; 83605; 83690; 84702; 85027; 87040; 87086; 93005; 96361; 96365; 99284; 99285; J3475; Q9967

== ENCOUNTER → 2024-01-03 03:30 | Outpatient (BNV) | payer MEDICAID, SELFPAY | PROVIDERS: Emergency Provider Emergency Medicine; Visit Provider Internal Medicine | DX: R94.31 Abnormal electrocardiogram [ECG] [EKG] (principal) | CPT/HCPCS: 93010 ==

== ENCOUNTER 2024-03-22 17:23 | Emergency (ER) | payer MEDICAID, SELFPAY ==
--- NOTE | ~2024-03-22 | XR_ITS ---
EXAMINATION: XR CHEST 2 VIEW CLINICAL INFORMATION: Cough, chest pain COMPARISON: 12/17/2022 TECHNIQUE: PA and lateral views of the chest obtained. FINDINGS: The lungs are clear. There are no pleural effusions. The cardiomediastinal silhouette is normal. XR/XR chest 2V IMPRESSION: No acute cardiopulmonary disease. Electronically signed by: Frank Goodrich MD 03/22/2024 07:27 PM EDT
--- NOTE | 2024-03-22 17:24 | ECG_ITS ---
Test Reason : CHEST PAIN Blood Pressure : / mmHG Vent. Rate : 139 BPM Atrial Rate : 139 BPM P-R Int : 112 ms QRS Dur : 070 ms QT Int : 366 ms P-R-T Axes : 000 050 024 degrees QTc Int : 556 ms Sinus tachycardia Nonspecific ST abnormality Abnormal ECG When compared with ECG of 03-JAN-2024 03:30, No significant change was found Referred By: Bettina Scott Electronically Signed By:BAILEY ASHBY
[2024-03-22 17:34] VITALS: BP 155/91; PULSE 144; RESP 16; TEMP 36.9; O2SAT 98; BMI 36.6
--- NOTE | 2024-03-22 17:41 | ED_ITS ---
HPI - General Adult General Chief complaint: Nausea/Vomiting/Diarrhea Stated complaint: chest pain, vomiting, diarrhea, chills, fever Time Seen by Provider: 03/22/24 18:22 History of Present Illness ED Provider: Fredis CHAMPION narrative: The patient is a 28-year-old female with a history of problems with tachycardia who says that she has been feeling unwell since around 06:00 this morning. She says that she has had chest pain when she coughs. She has also had pain in her right flank and in her right abdomen although this crosses the midline into the left abdomen. She also has a headache. She thinks she has had a fever at home. She has had nausea, vomiting, and diarrhea. She feels weak and worn out and uncomfortable. No definite discomfort with urination. Related Data Home Medications ?Medication ?Instructions ?Recorded ?Confirmed amitriptyline 25 mg tablet 25 mg PO BEDTIME 12/17/22 12/17/22 cetirizine 10 mg tablet 10 mg PO DAILY 12/17/22 12/17/22 Previous Rx's ?Medication ?Instructions ?Recorded metoprolol succinate 25 mg 25 mg PO DAILY #15 tabs 12/19/22 tablet,extended release 24 hr (Toprol XL) amitriptyline 25 mg tablet 25 mg PO BEDTIME #30 tabs 01/03/24 cetirizine 10 mg tablet 10 mg PO DAILY PRN allergy 01/03/24 symptoms #30 tabs cyclobenzaprine 10 mg tablet 10 mg PO TID PRN muscle spasm #14 01/03/24 tabs doxycycline monohydrate 100 mg 100 mg PO BID #14 caps 01/03/24 capsule metoprolol succinate 25 mg 25 mg PO DAILY #30 tabs 01/03/24 tablet,extended release 24 hr nirmatrelvir 300 mg (150 mg See Rx Instructions PO .COMPLEX 03/22/24 x2)-ritonavir 100 mg tablet,dose #30 ea pack (Paxlovid) ondansetron 4 mg disintegrating 4 mg PO Q8H PRN nausea and 03/22/24 tablet vomiting #7 tabs Allergies Allergy/AdvReac Type Severity Reaction Status Date / Time pollen extracts Allergy Mild Itchy Eyes Verified 03/22/24 17:36 Review of Systems 2 Review of Systems: Yes all other systems are reviewed and are negative PMFSH Past Medical History Medical History Low blood pressure Surgical History S/P abdominoplasty Social History Social History Alcohol intake: current Alcohol intake frequency: does not drink Patient Tobacco Use Status: Never used Tobacco Smoked in Last 30 Days: No Use of substances other than those prescribed or required for medical reasons: No Advance Directives: No Advance Directives Information Provided: No service: No Current occupational status: unemployed Physical Exam ED Vital Signs: Vital Signs - 24 hr 03/22/24 17:34 03/22/24 18:08 03/22/24 20:15 Temperature 98.5 F 97.9 F 98.2 F Pulse Rate 144 H 140 H 136 H Respiratory Rate 16 16 17 Blood Pressure 155/91 H 139/88 130/79 Pulse Oximetry 98 100 100 Oxygen Delivery Method Room Air Room Air Room Air 03/22/24 22:12 Temperature 98.5 F Pulse Rate 128 H Respiratory Rate 18 Blood Pressure 129/77 Pulse Oximetry 100 Oxygen Delivery Method Room Air BMI result Body Mass Index 36.6 Const Other: Patient is a 28-year-old who was awake and alert and looks as if they feel somewhat unwell. They do not appear obviously acutely toxic or in severe distress however. No increased work of breathing. HENMT Head: Yes normal to inspection Face and sinus: Yes normal facial exam Mouth: Normal oral and palatal mucosa present and moist mucous membranes Teeth and gingiva: dentition normal Throat: Yes posterior oropharynx normal Eyes General: appearance normal, both eyes and all related structures Conjunctivae: conjunctivae normal Pupils: Equal, round and reactive pupils present EOM: EOMs intact bilaterally Neck Neck: Yes no lymphadenopathy and Yes no JVD Resp Effort & Inspection: normal respiratory effort Auscultation: clear to auscultation bilaterally Cardio Rate: tachycardic Rhythm: regular rhythm Heart sounds: S1 normal heart sound present and S2 normal heart sound present GI Other: The patient has generalized abdominal tenderness which is more pronounced in both the right upper and right lower quadrants Back/Spine/Pelvis Other: No definite unilateral CVA percussion tenderness Skin General skin exam: no rashes or lesions noted Neuro Other: The patient is awake, alert, with a normal mental status. Cranial nerves are grossly intact. She moves her extremities normally. Cranial nerves: Yes Equal, round and reactive pupils present Extrem Other: No calf swelling or tenderness. No asymmetry. No peripheral edema. Course Course Course Narrative: This is a Rapid Medical Examination (RME) performed by Rivera Scott PA-C in triage. Full HPI, ROS, assessment and treatment plan per primary provider in the Main ED. 28 year old female here for eval of cough, chest pain on coughing, N/V/D on waking up this morning. no known sick contacts. on recent travel outside [place]. + tachy to 140's. lungs clear. Plan: labs, ekg, cxr, viral serology Medications Administered Discontinued Medications Generic Name Dose Route Start Last Admin Trade Name Freq PRN Reason Stop Dose Admin Acetaminophen 975 mg 03/22/24 21:45 03/22/24 21:53 Acetaminophen 325 Mg Tablet PO 03/22/24 21:46 975 mg ONCE ONE Administration Droperidol 1.25 mg 03/22/24 19:51 03/22/24 20:12 Droperidol 5 Mg/2 Ml Vial IVPUSH 03/22/24 19:52 1.25 mg ONCE ONE Administration Sodium Chloride 1,000 mls @ 999 mls/hr 03/22/24 18:30 03/22/24 21:48 Ns IV 03/22/24 19:30 Infused .Q1H1M SONAM Infusion Ketorolac Tromethamine 15 mg 03/22/24 19:51 03/22/24 20:12 Ketorolac Tromethamine 15 Mg/Ml Vial IVPUSH 03/22/24 19:52 15 mg ONCE ONE Administration Medical Decision Making Medical Decision Making [facility] Narrative: The patient presents with multiple complaints, describing symptoms that began this morning at around 06:00. It was my impression that her primary complaint might have been her right flank pain which radiates to her abdomen. This raised the possibility of a possible renal source of pain although the patient's pain did not confined itself only to the right side. The patient was also quite tachycardic. Apparently she has a history of tachycardia. She was hospitalized for tachycardia a year ago but no acute pathology was found. The patient reports that it is not unusual for her to have rapid heart rates. Given this history I think we do not need to pursue the question of pulmonary embolism. She had a negative CT pulmonary angiogram when she was hospitalized for heart rate of 140 last year. The patient's urine did not suggest a renal source of pain. She had neither sign of infection or blood in her urine. She tested positive for COVID. She was treated symptomatically with IV fluids, ketorolac, and droperidol. She seemed to feel better. The patient complained that she was really feeling a lot of diffuse body pain and that she felt quite miserable. Given the degree of symptomatology she is describing I think it would be reasonable to trial her on Paxlovid. Her only regular medication is amitriptyline which seems to have minimal interactions with Paxlovid. Lab Data 03/22/24 19:39 03/22/24 19:39 Labs: Lab Results 03/22/24 03/22/24 03/22/24 Range/Units 18:02 18:17 19:39 WBC 11.1 H (4.8-10.8) X10*3/uL RBC 4.76 (4.20-5.50) X10*6/uL Hgb 13.1 (12.0-16.0) g/dl Hct 39.7 (37.0-47.0) % MCV 83.4 (80.0-98.0) fL MCH 27.5 (27.0-33.0) pg MCHC 33.0 (31.0-35.0) g/dl RDW 14.6 (11.0-16.0) % Plt Count 311 (160-400) X10*3/uL MPV 10.8 (9.4-12.3) fL Immature Gran % (Auto) 0.5 H (0.0-0.4) % Neut % (Auto) 85.8 H (45-73) % Lymph % (Auto) 9.4 L (20-40) % [place] % (Auto) 3.2 (2-11) % Eos % (Auto) 1.0 (0-4) % Baso % (Auto) 0.1 (0-2) % Lymph # (Auto) 1.0 L (1.2-4.9) X10*3/uL [place] # (Auto) 0.4 (0.1-1.2) X10*3/uL Eos # (Auto) 0.1 (0.0-0.4) X10*3/uL Baso # (Auto) 0.0 (0.0-0.2) X10*3/uL Abs Immat Gran (auto) 0.05 H (0.00-0.03) X10*3/uL Absolute Neuts (auto) 9.5 H (2.0-8.3) x10*3/uL Absolute Nucleated RBC 0.000 (0.0-0.012) X10*3/uL Nucleated RBC % (auto) 0.0 (0.0-0.2) /100WBC ESR 22 H (0-20) MM/HR Sodium 134 L (135-145) mmol/L Potassium 4.3 (3.3-5.1) mmol/L Chloride 104 (96-108) mmol/L Carbon Dioxide 20 L (22-29) mmol/L Anion Gap 14 (12-20) BUN 7 L (9-16) mg/dL Creatinine 0.79 (0.5-1.4) mg/dL Estim Creat Clear Calc 109.1 Estimated GFR > 60 Random Glucose 92 (60-115) mg/dL Calcium 9.6 (8.4-10.2) mg/dL Magnesium 1.9 (1.6-2.6) mg/dL Total Bilirubin 0.5 (0.0-1.0) mg/dL AST 32 H (5-31) U/L ALT 24 (0-31) U/L Alkaline Phosphatase 74 (39-117) U/L Troponin I High Sens < 2.7 (<3.5-17.0) ng/L C-Reactive Protein 2.25 H (< or = 0.50) mg/dL Total Protein 8.4 H (6.5-8.0) g/dL Albumin 4.4 (3.5-5.0) g/dL Lipase 14 (8-78) U/L Urine Color Yellow Urine Appearance Clear Urine pH 5.5 (5.0-9.0) Ur Specific [place] 1.015 (1.005-1.025) Urine Protein Negative (Neg-Trace) mg/dL Urine Glucose (UA) Negative (Negative) mg/dL Urine Ketones Negative (Negative) mg/dL Urine Blood Negative (Negative) Urine Nitrite Negative (Negative) Ur Leukocyte Esterase Negative (Negative) Influenza Type A (PCR) NEGATIVE (Negative) Influenza Type B (PCR) NEGATIVE (Negative) RSV RNA Qual (PCR) NEGATIVE (Negative) SARS-CoV-2 RNA (RT-PCR) POSITIVE A (Negative) Discharge Plan Discharge Clinical Impression: COVID Patient Disposition: Home, Self-Care Instructions: COVID-19 (Coronavirus Disease 2019) (ED) Additional Instructions: You have tested positive for COVID today. Since your symptoms started very recently, earlier today, and since you seemed to be having a great deal of discomfort as a result of this infection, I think it would be reasonable for you to try a course of Paxlovid. Paxlovid is a medication intended to reduce the symptoms of COVID. 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 You will be taking 3 tablets per dose, 2 tablets of a drug callednirmatrelvir and 1 tablet of ritonavir. Therefore you will take 3 tablets in the morning and 3 tablets in the evening for 5 days. Please use ibuprofen and acetaminophen as needed for discomfort. You may use ondansetron as needed for nausea. Drink lot of fluids. Please stay in touch with your regular doctor's office as needed for additional advice. Please isolate yourself at home for the next 5 days. After that you should wear a mask if you go outside for 5 days. If you feel significantly worse please return to the emergency room for additional evaluation. Prescriptions: New Paxlovid 300 mg (150 mg x 2)-100 mg tablets,dose pack See Rx Instructions .ROUTE .COMPLEX Qty: 30 0RF Rx Instructions: take TWO 150 mg tablets of nirmatrelvir with ONE 100 mg tablet of ritonavir twice daily for 5 days ondansetron 4 mg tablet,disintegrating 4 mg PO Q8H PRN (Reason: nausea and vomiting) Qty: 7 0RF No Action cetirizine 10 mg tablet 10 mg PO DAILY amitriptyline 25 mg tablet 25 mg PO BEDTIME metoprolol succinate [Toprol XL] 25 mg tablet extended release 24 hr 25 mg PO DAILY Qty: 15 0RF doxycycline monohydrate 100 mg capsule 100 mg PO BID Qty: 14 0RF metoprolol succinate 25 mg tablet extended release 24 hr 25 mg PO DAILY Qty: 30 0RF amitriptyline 25 mg tablet 25 mg PO BEDTIME Qty: 30 0RF cetirizine 10 mg tablet 10 mg PO DAILY PRN (Reason: allergy symptoms) Qty: 30 0RF cyclobenzaprine 10 mg tablet 10 mg PO TID PRN (Reason: muscle spasm) Qty: 14 0RF Stand Alone Forms: Work/School Release Discharge Date/Time: 03/22/24 22:14 Print Language: Monegasque
[2024-03-22 18:08] VITALS: BP 139/88; PULSE 140; RESP 16; TEMP 36.6; O2SAT 100
[2024-03-22 18:19] LABS: Appearance Urine Clear; Color Urine Yellow; Glucose Urine UA Negative (Negative); Leukocyte Esterase Urine Negative (Negative); Nitrite Urine Negative (Negative); PH 5.5 (5.0-9.0); Specific Gravity - Urine 1.015 (1.005-1.025); Urine Blood Negative (Negative); Urine Ketones Negative (Negative); Urine Protein Negative (Neg-Trace)
--- NOTE | 2024-03-22 19:06 | MHC.EDTECH ---
This Tech took over care as PCT @[id number]
--- NOTE | 2024-03-22 19:13 | PC.NURSE ---
pt is a difficult IV stick. 2x nurses tried twice. Anton DAVE asked if he could place a [place] guided line, he said he would be in shortly
[2024-03-22 19:44] LABS: MANUAL DIFF FLAG NO
[2024-03-22] MEDS: 0.9 % Sodium Chloride 1,000 ML 999 ML IV (19:46)
[2024-03-22 19:57] LABS: Basophils Percent Auto 0.1 % (0-2); Eosinophils Absolute Auto 0.1 X10*3/uL (0.0-0.4); Hematocrit 39.7 % (37.0-47.0); Hemoglobin 13.1 g/dl (12.0-16.0); Imm Gran Abs Auto 0.05 X10*3/uL (0.00-0.03); Imm Gran Pct Auto 0.5 % (0.0-0.4); Lymphocytes Percent Auto 9.4 % (20-40); Mean Corpuscular Hemoglobin 27.5 pg (27.0-33.0); Mean Corpuscular Volume 83.4 fL (80.0-98.0); Mean Platelet Volume 10.8 fL (9.4-12.3); Monocytes Absolute Auto 0.4 X10*3/uL (0.1-1.2); Monocytes Percent Auto 3.2 % (2-11); Neutrophils Absolute Auto 9.5 x10*3/uL (2.0-8.3); Neutrophils Percent Auto 85.8 % (45-73); Platelet Count 311 X10*3/uL (160-400); Red Blood Count 4.76 X10*6/uL (4.20-5.50); Red Cell Distribution Width 14.6 % (11.0-16.0); White Blood Count 11.1 X10*3/uL (4.8-10.8)
[2024-03-22] MEDS: Ketorolac Tromethamine 15 MG/ML VIAL IVPUSH (20:12)
[2024-03-22] MEDS: droPERidol 5 MG/2 ML VIAL 1.25 MG IVPUSH (20:12)
[2024-03-22 20:13] LABS: Influenza A PCR NEGATIVE (Negative); Influenza B PCR NEGATIVE (Negative); Resp Syncy Virus RNA Qual PCR NEGATIVE (Negative); SARS COV2 PCR INHOUSE POSITIVE (Negative)
[2024-03-22 20:14] LABS: Alanine Aminotransferase 24 U/L (0-31); Albumin Level 4.4 g/dL (3.5-5.0); Alkaline Phosphatase 74 U/L (39-117); Anion Gap 14 (12-20); Aspartate Amino Transferase 32 U/L (5-31); Bilirubin Total 0.5 mg/dL (0.0-1.0); Blood Urea Nitrogen 7 mg/dL (9-16); C Reactive Protein 2.25 mg/dL (< or = 0.50); Calcium 9.6 mg/dL (8.4-10.2); Carbon Dioxide 20 mmol/L (22-29); Chloride 104 mmol/L (96-108); Creatinine Clr Calc Pharmacy 109.1; Estimated Glomerular Filt Rate > 60; Glucose Random 92 mg/dL (60-115); Lipase 14 U/L (8-78); Magnesium 1.9 mg/dL (1.6-2.6); Potassium 4.3 mmol/L (3.3-5.1); Sodium 134 mmol/L (135-145); Total Protein 8.4 g/dL (6.5-8.0)
[2024-03-22 20:15] VITALS: BP 130/79; PULSE 136; RESP 17; TEMP 36.8; O2SAT 100
[2024-03-22 20:15] LABS: Troponin-I High Sensitivity < 2.7 ng/L (<3.5-17.0)
[2024-03-22 20:52] LABS: Erythrocyte Sedimentation Rate 22 MM/HR (0-20)
[2024-03-22] MEDS: Acetaminophen 325 MG TABLET 975 MG PO (21:53)
[2024-03-22 22:12] VITALS: BP 129/77; PULSE 128; RESP 18; TEMP 36.9; O2SAT 100
== END 2024-03-22 22:14 | disposition home or self-care (01) ==
PROVIDERS: Physician Assistant Medical; Emergency Provider Emergency Medicine
DX: U07.1 COVID-19 (principal); R11.2 Nausea with vomiting, unspecified; R07.89 Other chest pain; R00.0 Tachycardia, unspecified; R53.1 Weakness; Z79.899 Other long term (current) drug therapy
CPT/HCPCS: 0241U; 71046; 80053; 81003; 83690; 83735; 84484; 85025; 85652; 86140; 93005; 96361; 96374; 96375; 99284; 99285; J1790; J1885

== ENCOUNTER 2024-11-07 18:13 | Outpatient (REF) | payer MEDICAID, SELFPAY ==
--- OUTSIDE RECORDS SUMMARY | 2024-11-07 18:30 | XMS_ITS | Encounter Summary ---
Author Organization [employer] [facility] Address [address] [place] [address] Care Team Providers Care Passenger Service Supervisor Name Role Phone Maulik Grande MD Primary Care Prov ider Encounter Details Date Type Department Care Team (Late st Contact Info) Description 05/09/2024 Orders Only [facility] [address] [place] [address] Provider, MD Andrew Social History Tobacco Use Types Packs/Day Years Used Date Smoking Tobacco: Never Smokeless Tobacco: Never Alcohol Use Standard Drinks/Week Comments Yes 0 (1 standard drink = 0.6 oz pur e alcohol) socially Comments Unknown Sex and Gender Information Value Date Recorded Sex Assigned at Female 05/24/2022 10:23 AM EDT Legal Sex Female 10:23 AM EDT Gender Identity Female 01/20/2024 9:24 AM EDT Sexual Orientation Straight 01/20/2024 9: 24 AM EDT documented as of this encounter Plan of Treatment Not on file documented as of this encounter Procedures Procedure Name Priority Date/Time Associated Diagnosis Comments HM PAP/HPV Routine 10/08/2021 1:40 PM EDT documented in this encounter Results * HM PAP/HPV (10/08/2021 1:40 PM EDT) us Historical Provider HEALTH MAINTENANCE Final Result documented in this encounter Visit Diagnoses Not on filedocumented in this encounter Care Teams Passenger Service Supervisor Relationship Specialty Start Date End Date Maulik Grande MD [address] [place] [address] PCP - General Internal Medicine 02/01/24 documented as of this encounter
--- OUTSIDE RECORDS SUMMARY | 2024-11-07 18:30 | XMS_ITS | Encounter Summary ---
Author Organization [employer] Address [address] [facility] 7t [place] [address] Care Team Providers Care Lavender Farm Worker Name Role Phone Maulik Grande MD Primary Care Prov ider Encounter Details Date Type Department Care Team (Late st Contact Info) Description 09/20/2024 Telephone [facility] MED[facility] [address] [place] [address] Maulik Grande MD [address] [place], [place] [phone] Social History Tobacco Use Types Packs/Day Years Used Date Smoking Tobacco: Never Smokeless Tobacco: Never Alcohol Use Standard Drinks/Week Comments Yes 0 (1 standard drink = 0.6 oz pur e alcohol) socially Depression Answer Date Recorded Patient Health Questionnaire-9 Score 4 07/02/2024 Patient Health Questionnaire-9 Score 4 07/02/2024 Last PHQ-9: Questionnaire Data Not on file 1 09/02/2023 Housing Stability Answer Date Recorded What is your housing situation today? I have bennie flores 06/18/[address] you li ve. Do you have problems with any of the following? None of the above 06/18/2024 Food Insecurity Answer Date Recorded Within the past 12 months, y ou worried that your food would run out before you got money to buy more: Often true 06/18/2024 Within the past 12 months,th e food you bought just didn't last and you didn't have enough money to get more: Often true Transportation Answer Date Recorded In the past 12 months, has l ack of transportation kept you from medical appts, meetings, work or from getting things needed for daily living? No 06/18/2024 Utilities Answer Date Recorded In the past 12 months, has t he electric, gas, oil or water company threatened to shut off services in your home? No 06/18/2024 Depression Answer Date Recorded Patient Health Questionnaire-2 Score 4 07/02/2024 Internet Access Answer Date Recorded Internet Access Q1 Yes 06/18/2024 Internet Access Q2 Not on file 06/18/2024 Comments Unknown Sex and Gender Information Value Date Recorded Sex Assigned at Female 05/24/2022 10:23 AM EDT Legal Sex Female 10:23 AM EDT Gender Identity Female 01/20/2024 9:24 AM EDT Sexual Orientation Straight 01/20/2024 9: 24 AM EDT documented as of this encounter Plan of Treatment Not on file documented as of this encounter Visit Diagnoses Not on filedocumented in this encounter Additional Health Concerns Assessment Noted Time PHQ-9 Depression Total Score: 4 07/02/20 24 1:35 PM EST documented as of this encounter Care Teams Lavender Farm Worker Relationship Specialty Start Date End Date Maulik Grande MD [address] [place] [phone] PCP - General Internal Medicine 02/01/24 documented as of this encounter
--- OUTSIDE RECORDS SUMMARY | 2024-11-07 18:30 | XMS_ITS | Encounter Summary ---
Author Organization [facility] Address [address] [facility] 7t [place] [address] Care Team Providers Care Unit Tender Name Role Phone Maulik Grande MD Primary Care Prov ider Reason for Visit * Reason Comments Vaginal Itching Encounter Details Date Type Department Care Team ([facility] st Contact Info) Description 11/07/2024 2:20 PM EDT Office Visit [facility] [address] [place], [place] [phone] Sharmaine Silva NP [address] [place] [address] Sore throat (Primary Dx); Flu-like symptoms Social History Tobacco Use Types Packs/Day Years [...] AM EDT documented as of this encounter Last Filed Vital Signs Vital Sign Reading Time Taken Comments Blood Pressure 107/72 11/07/2024 2:11 PM EDT Pulse 69 11/07/2024 2:11 PM EDT Temperature 36.6 ??C (97.9 ??F) 11/07/2024 2:11 PM ED T Respiratory Rate 16 11/07/2024 2:11 PM EDT Oxygen Saturation 99% 11/07/2024 2:11 PM EDT Inhaled Oxygen Concentration - - Weight 73 kg (161 lb) 11/07/2024 2:11 PM EDT Height - - Body Mass Index 27.64 07/02/2024 1:34 PM EST documented in this encounter Progress Notes * Jeramie Marquez MA - 11/07/2024 2:20 PM EDT 1 * Sharmaine Silva NP - 11/07/2024 2:20 PM EDT SUBJECTIVE: Wanda Cartagena is a 29 y.o. female who presents to the [facility] for a sick visit. Denies recent illness, injury, or hospitalization. Sore Throat This is a new problem. The current episode started yesterday. The problem has been rapidly worsening. The pain is worse on the left side. The maximum temperature recorded prior to her arrival was 101- 101.9 F. The fever has been present for Less than 1 day. The pain is at a severity of 10/10. The pain is severe. Associated symptoms include abdominal pain, congestion, headaches, neck pain, swollen glands and trouble swallowing. Pertinent negatives include no coughing, diarrhea or shortness of breath. Complains of pain in left side of throat that started 2 days ago progressing to both sides. Notes white substances at the back of her throat and difficulty swallowing. States she's also had fevers [id number] degrees and body aches. Denies sick contacts, cough, shortness of breath. She's tried tylenol with no benefit Had oral intercourse 2 weeks ago. Declines ejaculate content in her throat Review of Systems Constitutional: Negative. Negative for chills and fever. HENT: Positive for congestion, sore throat and trouble swallowing. Respiratory: Negative for cough, chest tightness and shortness of breath. Cardiovascular: Negative for chest pain. Gastrointestinal: Positive for abdominal pain. Negative for constipation, diarrhea and nausea. Genitourinary: Negative for dysuria. Musculoskeletal: Positive for myalgias and neck pain. Negative for arthralgias and back pain. Skin: Negative. Negative for rash and wound. Neurological: Positive for headaches. Negative for weakness and light-headedness. Psychiatric/Behavioral: Negative for behavioral problems, confusion, decreased concentration and suicidal ideas. OBJECTIVE: Visit Vitals BP 107/72 (BP Location: Left arm, Patient Position: Sitting, BP Cuff Size: Adult) Pulse 69 Temp 97.9 ??F (36.6 ??C) (Temporal) Resp 16 Wt 161 lb (73 kg) SpO2 99% BMI 27.64 kg/m?? Smoking Status Never BSA 1.82 m?? Patient Active Problem List Diagnosis Encounter for medical examination to establish care Primary hypertension Seasonal allergies Physical exam Screening for cervical cancer Office Visit on 11/07/2024 Component Date Value Ref Range Status Rapid Strep A Screen 11/07/2024 Negative Negative, None Detected Final Influenza A 11/07/2024 Negative Negative, Indeterminate Final Influenza B 11/07/2024 Negative Negative, Indeterminate Final Rapid COVID Ag 11/07/2024 Negative Final Physical Exam Vitals reviewed. Constitutional: General: She is not in acute distress. Appearance: Normal appearance. She is not ill-appearing. HENT: Head: Normocephalic and atraumatic. Right Ear: External ear normal. Left Ear: External ear normal. Nose: Nose normal. Mouth/Throat: Pharynx: Uvula midline. Posterior oropharyngeal erythema present. No uvula swelling. Tonsils: Tonsillar exudate (more prominent on left tonsil) present. No tonsillar abscesses. 1+ on the right. 1+ on the left. Eyes: General: No scleral icterus. Extraocular Movements: Extraocular movements intact. Cardiovascular: Rate and Rhythm: Normal rate and regular rhythm. Pulmonary: Effort: Pulmonary effort is normal. No respiratory distress. Breath sounds: Normal breath sounds. Musculoskeletal: General: Normal range of motion. Cervical back: Normal range of motion and neck supple. Tenderness present. Lymphadenopathy: Cervical: No cervical adenopathy. Skin: General: Skin is warm and dry. Neurological: General: No focal deficit present. Mental Status: She is alert and oriented to person, place, and time. Gait: Gait normal. Psychiatric: Mood and Affect: Mood normal. Behavior: Behavior normal. Assessment/Plan Diagnoses and all orders for this visit: Sore throat Comments: -POCT positive for strep, negative flu and COVID -Centor score of 4. Culture sent -prescription for penicillin sent to pharmacy for empiric treatment while culture pending -patient informed of the importance of completing full 10 day course of medication. Take medicationwith food and call the clinic with any adverse reactions -Currently afebrile. Counseled supportive measures including salt water gargles, cool drinks or ice/popsicles, humidifier, honey for sore throat, fluids, rest. -May alternate Motrin/Tylenol q6h as needed fever. -advised not to share cups or eating utensils, change tooth brush and bedding after 5 days of antibiotic treatment -work note provided to return after 24 hours of antibiotic use -RTC if no improvement in 5 days, cough or SOB, fever, or severe headache. -ED precautions reviewed. Work note provided to return to work Thursday 11/09 -will call with results Orders: - POCT rapid strep A manually resulted - penicillin v potassium (Veetid) 500 MG tablet; Take 1 tablet (500 mg) by mouth 2 times daily for 10 days. - ibuprofen 600 MG tablet; Take 1 tablet (600 mg) by mouth every 6 (six) hours for 10 days. - Culture, Throat Flu-like symptoms - Influenza A (ID NOW Rapid Molecular) - Influenza B (ID NOW Rapid Molecular) - POCT Rapid COVID Ag documented in this encounter Plan of Treatment Scheduled Orders Name Type Priority Associated Diagnoses Orde r Schedule Culture, Throat Microbiology Routine Sore throat Ordered: 11/07/2024 documented as of this encounter Procedures Procedure Name Priority Date/Time Associated Diagnosis Comments POCT INFLUENZA B (ID NOW RAPID MOLECULAR) Routine 11/07/2024 3:03 PM EDT Flu-like symptoms POCT INFLUENZA A (ID NOW RAPID MOLECULAR) Routine 11/07/2024 3:03 PM EDT Flu-like symptoms POCT RAPID COVID ANTIGEN Routine 11/07/2024 2:58 PM EDT Flu-like symptoms POCT RAPID STREP A Routine 11/07/2024 2: 36 PM EDT Sore throat documented in this encounter Results * Influenza B (ID NOW Rapid Molecular) (11/07/2024 3:03 PM EDT) Pathologist [facility] Influenza B Negative Negative, Indeterminate [facility] Swab 11/07/2024 3:03 PM EDT us Sharmaine Silva NP POINT OF CARE TEST ENTER/EDIT O RDERABLES Final Result [facility] [address] [place] [phone] * Influenza A (ID NOW Rapid Molecular) (11/07/2024 3:03 PM EDT) Influenza A Negative Negative, Indeterminate [facility] Swab 11/07/2024 3:03 PM EDT us Sharmaine Silva NP POINT OF CARE TEST ENTER/EDIT O RDERABLES Final Result [facility] [address] [place] [phone] * POCT Rapid COVID Ag (11/07/2024 2:58 PM EDT) Rapid COVID Ag Negative Swab 11/07/2024 2:58 PM EDT Sharmaine Appra [employer] POINT OF CARE TEST ENTER/EDIT O RDERABLES Final Result * POCT rapid strep A manually resulted (11/07/2024 2:36 PM EDT) Rapid Strep A Screen Negative Negative, None Detected Swab 11/07/2024 2:36 PM EDT us Sharmaine Silva [employer] POINT OF CARE TEST ENTER/EDIT O RDERABLES Final Result documented in this encounter Visit Diagnoses Diagnosis Sore throat- Primary Acute pharyngitis Flu-like symptoms documented in this encounter Additional Health Concerns Assessment Noted Time PHQ-9 Depression Total Score: 4 07/02/20 24 1:35 PM EST documented as of this encounter Care Teams Unit Tender Relationship Specialty Start Date End Date Maulik Grande MD [address] [place] [phone] PCP - General Internal Medicine 02/01/24 documented as of this encounter
--- OUTSIDE RECORDS SUMMARY | 2024-11-07 18:30 | XMS_ITS | Clinical Summary ---
Author Organization [employer] Address [address] [place] [address] 7t [place] [address] Care Team Providers Care Matcher Name Role Phone Maulik Grande MD Primary Care Prov ider Allergies No known active allergies Medications azelastine (Astelin) 0.1 % nasal spray Administer 1 spray into each nostril 2 times daily. Use in each nostril as directed 30 mL 2 4 05/21/20 25 Active amitriptyline (Elavil) 25 MG tablet TAKE 1 TABLET BY MOUTH AT BEDTIME 30 tablet 3 5 Active penicillin v potassium (Veetid) 500 MG tabletIndicatio ns:Sore throat Take 1 tablet (500 mg) by mouth 2 times daily for 10 days. 20 tablet 5 11/18/19 25 Active ibuprofen 600 MG tabletIndicatio ns:Sore throat Take 1 tablet (600 mg) by mouth every 6 (six) hours for 10 days. 40 tablet 5 11/18/19 25 Active Active Problems Problem Noted Date Diagnosed Date Physical exam 07/06/2024 Assessment & Plan (07/06/2024 3:01 PM EST): Unremarkable physical examination, will order new labs for evalaution of secondary conditions associated with obesity Screening for cervical cancer 07/06/2024 Assessment & Plan (07/06/2024 3:02 PM EST): Patient refers had it done on 2021, was told to be repeated in 3 years (2024) Seasonal allergies 05/21/2024 Assessment & Plan (05/21/2024 12:58 PM EDT): Continue zyrtec, will send rx for azelastine, call back if not improving Encounter for medical examination to establish c are 01/28/2024 Assessment & Plan (01/28/2024 10:19 AM EDT): Last seen by pcp over 8 months ago Previous hospitalization due to tachycardia/hypertension over 1 year ago Er visit 2 months ago due to hypertension Pmhx: hypertension/tachycardia/ Psh:- All:- Meds: metoprolol 25mg daily, amitriptyline 25mg daily Patient is A0 Sexually active uses IUD as contraceptive, placed on 2022 Pap smear done 2 years ago Primary hypertension 01/28/2024 Assessment & Plan (07/06/2024 2:59 PM EST): Has remained controlled with diet, told to continue monitoring, if bp >140/90, call back. Assessment & Plan (01/28/2024 10:02 AM EDT): Patient with episode of tachycardia and hypertension, she was being followed by cardiology for workup but she was discharged from clinics and workup could not be finished. Will place referral Encounters Date Type Department Care Team Description 11/07/2024 2:20 PM EDT Office Visit [facility] [address] [place] [phone] Sharmaine Silva, JULIETA Sore throat (Primary Dx); Flu-like symptoms 11/07/2024 Telephone [facility] MEDICINE [address] [place] [phone] Maulik Grande MD Nurse Triage 09/20/2024 2:15 PM EST Telemedicine [facility] [address], [place] [phone] Maulik Grande MD Palpitations (Primary Dx) 09/20/2024 Travel 09/20/2024 Telephone [facility] MEDICINE [address] [place] [address] [phone] Maulik Grande MD 08/17/[address] [phone] Maulik Grande MD from Last 3 Months Family History Medical History Relation Name Comments Heart disease Father Hypertension Father No Known Problems Mother Relation Name Status Comments Father Mother Social History Tobacco Use Types Packs/Day Years Used Date Smoking Tobacco: Never Smokeless Tobacco: Never Tobacco Cessation:Counseling Given: Not Answered Alcohol Use Standard Drinks/Week Comments Yes 0 [...] Orientation Straight 01/20/2024 9: 24 AM EDT Last Filed Vital Signs Vital Sign Reading Time Taken Comments Blood Pressure 107/72 11/07/2024 2:11 PM EDT Pulse 69 11/07/2024 2:11 PM EDT Temperature 36.6 ??C (97.9 ??F) 11/07/2024 2:11 PM ED T Respiratory Rate 16 11/07/2024 2:11 PM EDT Oxygen Saturation 99% 11/07/2024 2:11 PM EDT Inhaled Oxygen Concentration - - Weight 73 kg (161 lb) 11/07/2024 2:11 PM EDT Height 162.6 cm (5' 4 ) 07/02/2024 1:34 PM EST Body Mass Index 27.64 07/02/2024 1:34 PM EST Plan of Treatment Health Maintenance Due Date Last Done Comments HIV Screening 1993 Lipid Panel 1993 Family Planning (PISQ) 2008 Hepatitis C Screening 2011 Hepatitis B Vaccines (1 of 3 - 19+ 3-dose series) 2012 COVID-19 Vaccine (2023-2 5 season) 2024 05/25/2021, 05/02/2021 Influenza Vaccine (#1) 2024 03/28/2020 Cervical Cancer Screening 10/08/2024 HPV/Cotest 10/08/2024 Pap Smear 10/08/2024 10/08/2021 SDOH Screening 06/18/2025 06/18/2024 Alcohol/Substance Use Screening 07/02/2025 07/02/2024 Depression Screening 07/02/2025 07/02/2024, 07/02/2024 Tobacco Screening 11/07/2025 11/07/2024 DTaP/Tdap/Td Vaccines (3 - T d or Tdap) 01/27/2030 01/28/2020, 11/12/2015 Zoster Vaccines (1 of 2) 2043 RSV Patients and Patients Aged 60 years or older (1 - 1-dose 75+ series) 2068 HIB Vaccines Aged Out No longer eligi ble based on patient's age to complete this topic HPV Vaccines Aged Out No longer eligi ble based on patient's age to complete this topic Hepatitis A Vaccines Aged Out No long er eligible based on patient's age to complete this topic IPV Vaccines Aged Out No longer eligi ble based on patient's age to complete this topic Meningococcal Vaccine Aged Out No rosalinda flex eligible based on patient's age to complete this topic Pneumococcal Vaccine: Pediatrics (0 to 5 Years) and At-Risk Patients (6 to 49) Years) Aged Out No longer eligible b ased on patient's age to complete this topic RSV under 20 months Aged Out No longe r eligible based on patient's age to complete this topic Rotavirus Vaccines Aged Out No longer eligible based on patient's age to complete this topic Procedures Procedure Name Priority Date/Time Associated Diagnosis Comments POCT INFLUENZA B (ID NOW RAPID MOLECULAR) Routine 11/07/2024 3:03 PM EDT Flu-like symptoms POCT INFLUENZA A (ID NOW RAPID MOLECULAR) Routine 11/07/2024 3:03 PM EDT Flu-like symptoms POCT RAPID COVID ANTIGEN Routine 11/07/2024 2:58 PM EDT Flu-like symptoms POCT RAPID STREP A Routine 11/07/2024 2: 36 PM EDT Sore throat HM PAP/HPV Routine 10/08/2021 1:40 PM EDT from Last 3 Months or Most Recently Relevant to Health Maintenance Results * Influenza B (ID NOW Rapid Molecular) (11/07/2024 3:03 PM EDT) Pathologist [facility] Influenza B Negative Negative, Indeterminate [facility] Swab 11/07/2024 3:03 PM EDT us Sharmaine Silva NP POINT OF CARE TEST ENTER/EDIT O RDERABLES Final Result [facility] [address] [place] [phone] * Influenza A (ID NOW Rapid Molecular) (11/07/2024 3:03 PM EDT) Pathologist [facility] Influenza A Negative Negative, Indeterminate [facility] Swab 11/07/2024 3:03 PM EDT us Sharmaine Silva MEDICAL SCIENTIFIC OFFICER POINT OF CARE TEST ENTER/EDIT O RDERABLES Final Result [facility] [address] [place] [phone] [phone] * POCT Rapid COVID Ag (11/07/2024 2:58 PM EDT) Rapid COVID Ag Negative Swab 11/07/2024 2:58 PM EDT [facility] Appra MEDICAL SCIENTIFIC OFFICER POINT OF CARE TEST ENTER/EDIT O RDERABLES Final Result * POCT rapid strep A manually resulted (11/07/2024 2:36 PM EDT) Rapid Strep A Screen Negative Negative, None Detected Swab 11/07/2024 2:36 PM EDT Sharmaine Helm MEDICAL SCIENTIFIC OFFICER POINT OF CARE TEST ENTER/EDIT O RDERABLES Final Result * HM PAP/HPV (10/08/2021 1:40 PM EDT) Historical Provider HEALTH MAINTENANCE Final Result from Last 3 Months or Most Recently Relevant to Health Maintenance Insurance [employer] Care Teams Matcher Relationship Specialty Start Date End Date Maulik Grande MD [address] [place] [phone] PCP - General Internal Medicine 02/01/24
--- OUTSIDE RECORDS SUMMARY | 2024-11-07 18:30 | XMS_ITS | Encounter Summary ---
Author Organization [employer] Address [address] [facility] 7t [place] [address] Care Team Providers Care Corner Trimmer Operator Name Role Phone Maulik Grande MD Primary Care Prov ider Reason for Visit * Reason Onset Date Comments Nurse Triage 11/07/2024 Encounter Details Date Type Department Care Team ([facility] st Contact Info) Description 11/07/2024 Telephone [facility] MED[facility]INE [address] [place] [address] Maulik Grande MD [address] [place], [place] [phone] Nurse Triage Social History Tobacco Use Types Packs/Day Years [...] AM EDT documented as of this encounter Miscellaneous Notes * Telephone Encounter - Jocelynn Chahal RN - 11/07/2024 1:41 PM EDT Call returned to Wanda Cartagena to triage below. Reports Sore Throat, Fever (101F), Chills . Noticed white patches. Pain with swallowing. Pt endorses ROWE. No runny, nose, cough or sinus. Denies any N/v or diarrhea. Pt already at walk in center waiting to be seen. Pt advised to remain there until seen, follow up with office PRN if no improvement after evaluation and treatment plan. Pt agrees. Protocol Used: Sore Throat (Adult) Protocol-Based Disposition: See in Office or Video Visit Today Video visit offer not recorded Positive Triage Question: * Pus on tonsils (back of throat) and swollen neck lymph nodes ( glands ) * All higher-acuity triage questions were negative Care Advice Discussed: * Reassurance and Education - Sore Throat * Sore Throat * Reasons To Call Back - Sore throat is the main symptom and it lasts longer than 48 hours - You become worse * Telephone Encounter - Farhan Mclaughlin - 11/07/2024 1:25 PM EDT Symptoms: Sore Throat, Fever, Chills Outcome: Schedule an urgent appointment (within 4 hours) or talk to a nurse or provider soon Reason: Trouble drinking The caller accepted this outcome. Contact pt at [phone] documented in this encounter Plan of Treatment Not on file documented as of this encounter Visit Diagnoses Not on filedocumented in this encounter Additional Health Concerns Assessment Noted Time PHQ-9 Depression Total Score: 4 07/02/20 24 1:35 PM EST documented as of this encounter Care Teams Corner Trimmer Operator Relationship Specialty Start Date End Date Maulik Grande MD [address] [place] [phone] PCP - General Internal Medicine 02/01/24 documented as of this encounter
--- OUTSIDE RECORDS SUMMARY | 2024-11-07 18:30 | XMS_ITS | Clinical Summary ---
Author Organization [facility] Address [address] [place] [address] Care Team Providers Care Family Lawyer Name Role Phone Unavailable Primary Care Provider Unavailabl e Source Comments PLEASE NOTE, if this patient is a minor, it may be UNLAWFUL to discuss sensitive information that is contained in these records (such as FAMILY PLANNING, MENTAL HEALTH or SUBSTANCE ABUSE) with the minor patient's parent or other person without the patient's specific authorization.[facility] Immunizations Immunization Administration Dates Next Due PFIZER COVID VACCINE, VIGNESH CAP, 12+ 05/25/2021 ,05/02/2021 Social History Tobacco Use Types Packs/Day Years Used Date Smoking Tobacco: Never Assessed Social Connections Answer Date Recorded Connectedness 0 04/05/2024 Financial Resource Strain Answer Date R ecorded Financial Resource Strain 0 2020 Stress Answer Date Recorded Stress 0 05/02/2021 Physical Activity Answer Date Recorded Physical Activity 0 05/02/2021 Food Insecurity Answer Date Recorded Food 0 04/19/2024 Transportation Needs Answer Date Record ed Transportation 0 05/02/2021 Housing Stability Answer Date Recorded Housing 0 05/02/2021 Safety and Environment Answer Date Devon rded Safety 0 05/02/2021 Utilities Answer Date Recorded Utilities 0 05/02/2021 Employment Answer Date Recorded Stress 0 04/05/2024 Comments Unknown Sex and Gender Information Value Date Recorded Sex Assigned at Not on file Legal Sex Female 7:21 AM PDT Gender Identity Not on file Sexual Orientation Not on file Plan of Treatment Health Maintenance Due Date Last Done Comments Anxiety Screening 1993 HPV Screening 1993 Hepatitis C Screening 1993 Pap + HPV 1993 Tobacco Screening 1993 HIV Screening 2008 Relationship Safety Screening/Counseling 2008 Hypertension Screening (#1) 2011 Imm-Hepatitis B (1 of 3 - 19 + 3-dose series) 2012 Cervical Cancer Screening 2014 Pap Smear 2014 [id number] ( season) 2024 021, 05/02/2021 Imm-Influenza (#1) 2024 03/28/2020 Alcohol and Drug Screen 07/25/2024 Depression Annual Screen 07/25/2024 Imm-DTaP/Tdap/Td (3 - Td or Tdap) 01/27/2030 020, 11/12/2015 Cervical Ablation/Cold-Knife Conization Discontinued Cervical Cryotherapy Discontinued Colposcopy Discontinued Endometrial Biopsy Discontinued Excision/Leep Discontinued HPV Genotyping Discontinued Vaginal Pap Discontinued Vulvoscopy Discontinued Insurance [employer] PLAN Member Subscriber Plan / Payer (Ef fective 2021-Present) Name:Wanda Ochoa Relation to Subscriber:Self Name:Wanda Ochoa Payer ID:[id number] Group ID:Not on file Type:Medicaid Address: [facility] [address] [place] [address]
--- OUTSIDE RECORDS SUMMARY | 2024-11-07 18:30 | XMS_ITS | Clinical Summary ---
Author Organization [facility] it Address [address] [place] [address] Care Team Providers Care Meat Process Worker Name Role Phone Elaina Lucero MD Primary Care Provider [phone] Immunizations Name Administration Dates Next Due Pfizer SARS-CoV-2 COVID-19, mRNA, LNP-S, preservative free 05/25/2021,05/02/2021 Surgical History Surgery Date Site/Laterality Comments BELT ABDOMINOPLASTY 07/2020 PROCEDURE: HISTORICAL TUMMY TUCK; COMMENT: in [place] Medical History Medical History Date Comments Anemia 12/03/2015 DX:Anemia; COMME NT: H & H 10.4 / 34.3 Vaginal yeast infection 04/25/2015 DX:Vagin al yeast infection; COMMENT: 12/03/15 Bacterial vaginitis DX:Bacterial vaginitis; COMMENT: RECURRENT Vaginitis DX:Vaginitis; CO MMENT: chronic Anxiety and depression DX:Anxiet y and depression Abnormal Pap smear of cervix 05/2018 DX: Abnormal Pap smear of cervix; COMMENT: ASCUS hpv negative. pap 1 yr later wnl Genital herpes 06/22/2021 DX:Genital herpe s Family history of cardiovasc ular disease DX:Family history of cardiov ascular disease Family History Medical History Relation Name Comments Other: heart problems Father Breast cancer Neg Hx Colon cancer Neg Hx Ovarian cancer Neg Hx Prostate cancer Neg Hx Relation Name Status Comments Father Social History Tobacco Use Types Packs/Day Years Used Date Smoking Tobacco: Never Smokeless Tobacco: Never Alcohol Use Standard Drinks/Week Comments Yes 0 (1 standard drink = 0.6 oz pur e alcohol) Comments Unknown Sex and Gender Information Value Date Recorded Sex Assigned at Not on file Legal Sex Female 4:49 AM EST Gender Identity Not on file Sexual Orientation Not on file Obstetrics History Last Filed Vital Signs Vital Sign Reading Time Taken Comments Blood Pressure 102/74 07/20/2023 10:53 AM EST Pulse 101 07/20/2023 10:53 AM EST Temperature - - Respiratory Rate - - Oxygen Saturation - - Inhaled Oxygen Concentration - - Weight 75.8 kg (167 lb) 07/20/2023 10:53 AM EST Height 157.5 cm (5' 2 ) 07/20/2023 10:53 AM EST Body Mass Index 30.54 07/20/2023 10:53 AM EST Plan of Treatment Health Maintenance Due Date Last Done Comments Hepatitis B Vaccines (1 of 3 - 19+ 3-dose series) 2012 Depression Screening 2022 HIV Screening 2022 Hepatitis C Screening 2022 Social Influencers of Health Screening 2022 COVID-19 Vaccine ( - 2023-2 5 season) 2024 05/25/2021, 05/02/2021 Cervical Cancer Screening: P ap Smear 10/08/2024 10/08/2021, 06/13/2019, 06/07/2018 Influenza Vaccine (Season Ended) 2025 03/28/2020 DTaP,Tdap,and Td Vaccines (3 - Td or Tdap) 01/27/2030 01/28/2020, 11/12/2015 HIB Vaccines Aged Out No longer eligi [...] on patient's age to complete this topic MMR Vaccines Aged Out No longer eligi ble based on patient's age to complete this topic Meningococcal ACWY Vaccine Aged Out N o longer eligible based on patient's age to complete this topic Meningococcal B Vaccine Aged Out No l onger eligible based on patient's age to complete this topic Pneumococcal Vaccine: Pediatrics (0 to 5 Years) and At-Risk Patients (6 to 64 Years) Aged Out No longer eligible b ased on patient's age to complete this topic RSV Immunization Patients Under 20 months Aged Out No longer eligible b ased on patient's age to complete this topic Varicella Vaccines Aged Out No longer eligible based on patient's age to complete this topic Procedures Procedure Name Priority Date/Time Associated Diagnosis Comments PAP SMEAR Routine 10/08/2021 from Last 3 Months or Most Recently Relevant to Health Maintenance Results * Pap smear (10/08/2021) 10/08/2021 Narrative HISTORICAL TESTING LAB RESULTING AGENCY - 10/20/2021 3:05 PM EDT [id number] THINPREP PAP, IMAGED: NEGATIVE FOR SQUAMOUS INTRAEITHELIAL LESION AND MALIGNANCY. SHIFT IN ROBERT, SUGGESTIVE OF BACTERIAL VAGINOSIS. NOTE: THE PAP TEST IS A SCREENING TEST WITH AN INHERENT FALSE NEGATIVE RATE. AUTOMATED PRESCREENING OF ALL LIQUID BASED SPECIMENS IS PERFORMED BY THE THINPREP IMAGING SYSTEM UNLESS OTHERWISE STATED. THA LYN(ASCP) (CASE ELECTRONICALLY SIGNED 10 20 2021) ADEQUACY: SATISFACTORY ENDOCERVICAL/TRANSFORMATION ZONE COMPONENT PRESENT. SOURCE: THINPREP PAP HPV IF ASCUS, CERVICAL, IMAGED CLINICAL INFORMATION: HPV IF DIAGNOSIS OF ASCUS. Z12.4, IUD Esperanza Long DO LAB CYTOLOGY ORDERABLES Final Result HISTORICAL TESTING LAB RESULTING AGENCY from Last 3 Months or Most Recently Relevant to Health Maintenance Care Teams Meat Process Worker Relationship Specialty Start Date End Date Elaina Lucero MD PCP - General Internal Medicine 07/01/20
== END 2024-11-07 18:14 | disposition home or self-care (01) ==
LOC: HO.HHCLNP 18:13
PROVIDERS: Visit Provider Nurse Practitioner
DX: J02.9 Acute pharyngitis, unspecified (principal)
CPT/HCPCS: 87070

== ENCOUNTER 2025-02-28 11:15 | Emergency (ER) | payer OTHER, SELFPAY ==
--- NOTE | ~2025-02-28 | XR_ITS ---
CLINICAL HISTORY: cough fever 2 view chest x-ray Comparison: CR/SR - XR CHEST 2 VIEWS - 03/22/24 18:43 EDT Findings: Normal size heart. No consolidation, pleural effusion or pneumothorax. No acute fracture. IMPRESSION: 1. No acute findings. This document has been electronically signed by: Mala Amador MD on 02/28/2025 18:05:47
--- NOTE | ~2025-02-28 | CT_ITS ---
CLINICAL HISTORY: lower abd pain, low back pain, N V D CT abdomen and pelvis with contrast Comparison: CT/SR - CT ABDOMEN PELVIS WITH IV CONTRAST - 01/03/24 05:11 EDT Findings: No consolidation or effusion. Minimal right basilar subsegmental atelectasis versus scarring. Unremarkable gallbladder. No biliary ductal dilatation. The liver, spleen, pancreas, adrenal glands and kidneys are within normal limits. No ureteral stones and no hydronephrosis or hydroureter. No bowel obstruction, pneumoperitoneum, or pneumatosis. No free fluid or loculated fluid collection. No adenopathy. Appendix is normal. Retroverted uterus. Interval removal of IUD. Urinary bladder only mildly filled and appears unremarkable. Bilateral small ovarian follicles. Abdominal aorta normal in size. No acute fracture. IMPRESSION: No acute findings. This document has been electronically signed by: Mala Amador MD on 02/28/2025 19:15:26
[2025-02-28 11:33] VITALS: BP 119/79; PULSE 132; RESP 18; TEMP 37.3; O2SAT 100; BMI 28.4
--- NOTE | 2025-02-28 11:33 | ED_ITS ---
HPI - General Adult General Chief complaint: General Medical Stated complaint: vomiting fever multi complaints Time Seen by Provider: 02/28/25 16:21 Source: patient Mode of arrival: ambulatory Limitations: no limitations History of Present Illness ED Provider: BETTINA SCOTT PA-C HPI narrative: 49-year-old female with pmhx significant for anemia and tachycardia presents to the ED today for evaluation of feeling generally unwell x 2 days. Reports initial symptoms of runny nose and sneezing, then developed a headache. Now having nausea, vomiting, abdominal pain and myalgias. Reports abdominal pain to lower abdomen, radiating to lower back bilaterally. Rates pain 12/10 currently. Additionally reports yellow loose stools x1 week. Reports T-max of 103F last night. 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 Denies vision changes, dizziness, confusion, urinary sx, melena, hematochezia, rashes. She is UTD on vaccinations. Denies any recent travel outside the country. Denies hx of abdominal surgery. Denies known sick contacts. Related Data Home Medications ?Medication ?Instructions ?Recorded ?Confirmed amitriptyline 25 mg tablet 25 mg PO BEDTIME 12/17/22 0 12/17/22 cetirizine 10 mg tablet 10 mg PO DAILY 12/17/2211/23 Previous Rx's ?Medication ?Instructions ?Recorded metoprolol succinate 25 mg 25 mg PO DAILY #15 tabs tablet,extended release 24 hr (Toprol XL) amitriptyline 25 mg tablet 25 mg PO BEDTIME #30 tabs 0 01/03/24 cetirizine 10 mg tablet 10 mg PO DAILY PRN allergy 0 01/03/24 symptoms #30 tabs cyclobenzaprine 10 mg tablet 10 mg PO TID PRN muscle s pasm #14 01/03/24 tabs doxycycline monohydrate 100 mg 100 mg PO BID #14 caps 01/03/24 capsule metoprolol succinate 25 mg 25 mg PO DAILY #30 tabs 06/17 tablet,extended release 24 hr nirmatrelvir 300 mg (150 mg See Rx Instructions PO .CO MPLEX 03/22/24 x2)-ritonavir 100 mg tablet,dose #30 ea pack (Paxlovid) ondansetron 4 mg disintegrating 4 mg PO Q8H PRN nausea and 03/22/24 tablet vomiting #7 tabs acetaminophen 325 mg tablet 975 mg (3 x 325 mg) PO Q4H PRN 02/28/25 (Tylenol) fever or pain #30 tabs ibuprofen 600 mg tablet 600 mg PO Q8H PRN fever or p ain 02/28/25 #30 tabs ondansetron 4 mg disintegrating 4 mg PO Q12H PRN nause a and 02/28/25 tablet vomiting 5 days #10 tabs Allergies Allergy/AdvReac Type Severity Reaction Status Date / Time pollen extracts Allergy Mild Itchy Eyes Verified 02/28/25 11:33 Review of Systems 2 Review of Systems: Yes all other systems are reviewed and are negative [facility] Past Medical History Attestation statement: The following information was validated with the patient. Source: old records reviewed and nursing notes reviewed Medical History Low blood pressure Surgical History S/P abdominoplasty Social History Social History Alcohol intake: current Alcohol intake frequency: does not drink Patient Tobacco Use Status: Never used Tobacco service: No Current occupational status: unemployed Physical Exam ED Vital Signs: Vital Signs - 24 hr 02/28/25 11:33 02/28/25 17:00 02/28/25 19:06 Temperature 99.1 F 97.8 F 97.8 F Pulse Rate 132 H 130 H 102 H Respiratory Rate 18 15 12 Blood Pressure 119/79 111/78 105/56 L Pulse Oximetry 100 98 98 Oxygen Delivery Method Room Air Room Air Room Air 02/28/25 20:02 Temperature 98.4 F Pulse Rate 97 Respiratory Rate 19 Blood Pressure 95/57 L Pulse Oximetry 96 Oxygen Delivery Method Room Air BMI result Body Mass Index 28.4 pt stable w/ hx of tachycardia General: Well appearing, in no acute distress. Skin: Warm, dry, intact. No rashes or lesions. Head: Normocephalic, atraumatic. EENT: Hearing is intact b/l. Conjunctiva clear. Sclera is anicteric. PERRLA. EOM intact. Moist mucous membranes. Neck: FROM. Trachea midline.? Cardiac: tachycardic, Chest wall symmetric. RRR Lungs: Normal respiratory effort without accessory muscle use. CTA bilaterally. No rales, rhonchi, or wheezes.? Abdomen: Soft, non-distended. diffuse mild tenderness, no rebound or guarding. Positive BS x4. Ext: Upper and lower extremities atraumatic, without tenderness, deformity, swelling or erythema. Neuro: AOx3. Normal speech. CN 2-12 grossly intact. Strength 5/5 intact throughout. Sensation intact to light touch. Course Course Course Narrative: This is a rapid medical exam performed by Adama Roy NP: Additional HPI, ROS, PE not included below will be deferred to primary provider. Patient is a 29-year-old female with history of tachycardia presenting to the emergency department with complaint of nausea and vomiting since yesterday, cough, body aches. Plan: viral serology, strep swab, labs, ekg Reevaluation(s) Reevaluation #1: 9939 -- CBC without leukocytosis however there is left shift. no anemia, h&h stable. chemistry without acute electrolyte abnormality requiring intervention. no sam. liver function around baseline. negative covid, flu, and rsv. > UA pending. > will add on ct a/p and cxr > medicated with toradol + zofran. IVF ordered. 2100 -- UA shows trace leukocyte esterase, 6-10 squamous epithelial cells and 1+ urine bacteria. Likely contamination as patient does not have any urinary symptoms. chest x-ray unremarkable, no infiltrate or consolidation to suggest pneumonia. CT abdomen/pelvis unremarkable. No gallbladder pathology. No bowel obstruction. > on re-evaluation, patient reports symptomatic improvement after receiving Toradol, Zofran and IV fluids. Her workup is reassuring today. Likely viral syndrome. Will discharge patient home with Zofran, Motrin and ibuprofen. She is agreeable with this and will be following up outpatient. Medications Administered Discontinued Medications Generic Name Dose Route Start Last Admin Trade Name Freq PRN Reason Stop Dose Admin Diphenhydramine HCl 50 mg 02/28/25 18:59 02/28/25 19:11 Diphenhydramine Hcl 50 Mg/Ml Vial IVPUSH 02/28/25 19:00 50 mg ONCE ONE Administration Sodium Chloride 1,000 mls @ 999 mls/hr 02/28/25 17:45 02/28/25 20:46 Ns IV 02/28/25 18:45 Infused .Q1H1M SONAM Infusion Iohexol 85 ml 02/28/25 18:22 02/28/25 18:22 Iohexol 350 Mg/Ml 100 Ml Infus..Btl IV 02/28/25 18:23 85 ml ONCE ONE Administration Ketorolac Tromethamine 30 mg 02/28/25 17:32 02/28/25 18:02 Ketorolac Tromethamine 30 Mg/Ml Vial IVPUSH 02/28/25 17:33 30 mg ONCE ONE Administration Ondansetron HCl 4 mg 02/28/25 17:53 02/28/25 18:02 Ondansetron Hcl 4 Mg/2 Ml Vial IVPUSH 02/28/25 17:54 4 mg ONCE ONE Administration Medical Decision Making Medical Decision Making [facility] Narrative: 49-year-old female with pmhx significant for anemia and tachycardia presents to the ED today for evaluation of feeling generally unwell x 2 days. tachycardic which is patient's baseline, low grade temp of 99.1F on arrival, improved to 97.8F without intervention. Differential diagnosis includes anemia, electrolyte abnormality, URI, sinus infection, viral syndrome, pneumonia, bronchitis, gastroenteritis, colitis, cholecystitis, IUP, constipation Plan for labs, ekg, cxr, viral swabs, ct a/p, pain control, re-evaluation. Differential Diagnosis Differential Diagnoses: The differential diagnosis associated with the presentation includes as above. Admission/Observation not indicated. Lab Data [facility] Lab Attestation statement: I reviewed the patient's lab results. as above. 02/28/25 12:13 02/28/25 12:13 Labs: Lab Results 02/28/25 02/28/25 Range/Units 12:13 20:06 WBC 8.1 (4.8-10.8) X10*3/uL RBC 4.86 (4.20-5.50) X10*6/uL Hgb 13.3 (12.0-16.0) g/dl Hct 41.1 (37.0-47.0) % MCV 84.6 (80.0-98.0) fL MCH 27.4 (27.0-33.0) pg MCHC 32.4 (31.0-35.0) g/dl RDW 14.3 (11.0-16.0) % Plt Count 292 (160-400) X10*3/uL MPV 10.7 (9.4-12.3) fL Immature Gran % (Auto) 0.2 (0.0-0.4) % Neut % (Auto) 80.9 H (45-73) % Lymph % (Auto) 9.0 L (20-40) % [place] % (Auto) 8.3 (2-11) % Eos % (Auto) 1.2 (0-4) % Baso % (Auto) 0.4 (0-2) % Lymph # (Auto) 0.7 L (1.2-4.9) X10*3/uL [place] # (Auto) 0.7 (0.1-1.2) X10*3/uL Eos # (Auto) 0.1 (0.0-0.4) X10*3/uL Baso # (Auto) 0.0 (0.0-0.2) X10*3/uL Abs Immat Gran (auto) 0.02 (0.00-0.03) X10*3/uL Absolute Neuts (auto) 6.6 (2.0-8.3) x10*3/uL Absolute Nucleated RBC 0.000 (0.0-0.012) X10*3/uL Nucleated RBC % (auto) 0.0 (0.0-0.2) /100WBC Sodium 140 (135-145) mmol/L Potassium 3.4 D (3.3-5.1) mmol/L Chloride 104 (96-108) mmol/L Carbon Dioxide 27 (22-29) mmol/L Anion Gap 12 (12-20) BUN 7 L (9-16) mg/dL Creatinine 0.80 (0.5-1.4) mg/dL Estim Creat Clear Calc 93.6 Estimated GFR > 60 Random Glucose 82 (60-115) mg/dL Calcium 9.2 (8.4-10.2) mg/dL Total Bilirubin 0.3 (0.0-1.0) mg/dL AST 35 H (5-31) U/L ALT 57 H (0-31) U/L Alkaline Phosphatase 77 (39-117) U/L Total Protein 7.8 (6.5-8.0) g/dL Albumin 4.7 (3.5-5.0) g/dL Beta HCG, Quant < 2 mIU/mL Urine Color Yellow Urine Appearance Clear Urine pH 5.5 (5.0-9.0) Ur Specific [place] 1.020 (1.005-1.025) Urine Protein Trace (Neg-Trace) mg/dL Urine Glucose (UA) Negative (Negative) mg/dL Urine Ketones Trace (Negative) mg/dL Urine Blood Negative (Negative) Urine Nitrite Negative (Negative) Ur Leukocyte Esterase Trace H (Negative) Urine RBC 0-2 (0-2) /HPF Urine WBC 0-5 (0-5) /HPF Ur Squamous Epith Cells 6-10 (0-2) /HPF Urine Bacteria 1+ (None Seen) Hyaline Casts 0-2 (0-2) /LPF Influenza Type A (PCR) NEGATIVE (Negative) Influenza Type B (PCR) NEGATIVE (Negative) RSV RNA Qual (PCR) NEGATIVE (Negative) SARS-CoV-2 RNA (RT-PCR) NEGATIVE (Negative) S. pyogenes GrpA KIZZY Negative (Negative) Independent Interpretation I performed an independent interpretation of an: EKG and Plain X-Ray Interpretation: EKG showing sinus tachycardia at a rate of 129 beats per minute, QT to 94, QTC 430, no acute ischemic changes or ST elevations Chest x-ray without infiltrate or consolidation CT abdomen/pelvis without bowel wall thickening, no bowel obstruction Radiology Impression Discussion of test interpretation with radiology: I have reviewed the radiologist's reading. Radiologist Impression: Date of Service: 02/28/25 Procedure(s): XR chest 2V Accession Number(s): [id number] cc: Maulik Grande MD; Bettina Scott~ CLINICAL HISTORY: cough fever 2 view chest x-ray Comparison: CR/SR - XR CHEST 2 VIEWS - 03/22/24 18:43 EDT Findings: Normal size heart. No consolidation, pleural effusion or pneumothorax. No acute fracture. IMPRESSION: 1. No acute findings. This document has been electronically signed by: Mala Amador MD on 02/28/2025 18:05:47 Date of Service: 02/28/25 Procedure(s): CT abdomen pelvis w IV con Accession Number(s): [id number] cc: Maulik Grande MD; Bettina Scott~ Report Number: [id number]: Total DLP = 465.00 mGy-cm CLINICAL HISTORY: lower abd pain, low back pain, N V D CT abdomen and pelvis with contrast Comparison: CT/SR - CT ABDOMEN PELVIS WITH IV CONTRAST - 01/03/24 05:11 EDT Findings: No consolidation or effusion. Minimal right basilar subsegmental atelectasis versus scarring. Unremarkable gallbladder. No biliary ductal dilatation. The liver, spleen, pancreas, adrenal glands and kidneys are within normal limits. No ureteral stones and no hydronephrosis or hydroureter. No bowel obstruction, pneumoperitoneum, or pneumatosis. No free fluid or loculated fluid collection. No adenopathy. Appendix is normal. Retroverted uterus. Interval removal of IUD. Urinary bladder only mildly filled and appears unremarkable. Bilateral small ovarian follicles. Abdominal aorta normal in size. No acute fracture. IMPRESSION: No acute findings. This document has been electronically signed by: Mala Amador MD on 02/28/2025 19:15:26 External Record Review External record reviewed: Inpatient record Prescription Management I considered prescription management with: Pain Medication Social Determinants Patient?s care significantly limited by Social Determinants of Health including: Other Social Determinant of Health Critical Care Time Critical Care Time Critical Care Time: No Discharge Plan Discharge Clinical Impression: Acute viral syndrome Patient Disposition: Home, Self-Care Instructions: Viral Syndrome (ED) Additional Instructions: Your blood work is reassuring. Your urine does not demonstrate infection. You tested negative for . You tested negative for COVID, flu, RSV, strep throat. Your chest x-ray does not demonstrate pneumonia. The CT scan of your abdomen does not demonstrate any acute pathology. You likely have a viral infection. Treatment for this is supportive. I am sending Zofran to your pharmacy for you to take as needed for nausea/vomiting. You may take Tylenol/Motrin at home as needed for body aches or fevers. Follow up with your outpatient provider. Return with any new or worsening symptoms. A case of an emergency call 911 Prescriptions: New ondansetron 4 mg tablet,disintegrating 4 mg PO Q12H PRN (Reason: nausea and vomiting) 5 Days Qty: 10 0RF acetaminophen [Tylenol] 325 mg tablet 975 mg PO Q4H PRN (Reason: fever or pain) Qty: 30 0RF ibuprofen 600 mg tablet 600 mg PO Q8H PRN (Reason: fever or pain) Qty: 30 0RF No Action cetirizine 10 mg tablet 10 mg PO DAILY amitriptyline 25 mg tablet 25 mg PO BEDTIME metoprolol succinate [Toprol XL] 25 mg tablet extended release 24 hr 25 mg PO DAILY Qty: 15 0RF doxycycline monohydrate 100 mg capsule 100 mg PO BID Qty: 14 0RF metoprolol succinate 25 mg tablet extended release 24 hr 25 mg PO DAILY Qty: 30 0RF amitriptyline 25 mg tablet 25 mg PO BEDTIME Qty: 30 0RF cetirizine 10 mg tablet 10 mg PO DAILY PRN (Reason: allergy symptoms) Qty: 30 0RF cyclobenzaprine 10 mg tablet 10 mg PO TID PRN (Reason: muscle spasm) Qty: 14 0RF Paxlovid 300 mg (150 mg x 2)-100 mg tablets,dose pack See Rx Instructions .ROUTE .COMPLEX Qty: 30 0RF Rx Instructions: take TWO 150 mg tablets of nirmatrelvir with ONE 100 mg tablet of ritonavir twice daily for 5 days ondansetron 4 mg tablet,disintegrating 4 mg PO Q8H PRN (Reason: nausea and vomiting) Qty: 7 0RF Referrals: Maulik Grande MD [Primary Care Provider, Medical] Stand Alone Forms: Work/School Release Interventions: ED Discharge Assessment Last Done: 02/28/25 21:30 Discharge Date/Time: 02/28/25 21:31 Print Language: Niuean
--- NOTE | 2025-02-28 11:37 | ECG_ITS ---
Test Reason : TACHYCARDIA Blood Pressure : */* mmHG Vent. Rate : 129 BPM Atrial Rate : 129 BPM P-R Int : 136 ms QRS Dur : 74 ms QT Int : 294 ms P-R-T Axes : 48 46 21 degrees QTcB Int : 430 ms Sinus tachycardia Otherwise normal ECG When compared with ECG of 22-Mar-2024 17:25, No significant change was found Referred By: Donna Roy Electronically Signed By: LUDA DEE
[2025-02-28 12:19] LABS: MANUAL DIFF FLAG NO
[2025-02-28 12:23] LABS: Hematocrit 41.1 % (37.0-47.0); Hemoglobin 13.3 g/dl (12.0-16.0); Imm Gran Abs Auto 0.02 X10*3/uL (0.00-0.03); Imm Gran Pct Auto 0.2 % (0.0-0.4); Lymphocytes Absolute Auto 0.7 X10*3/uL (1.2-4.9); Mean Corpuscular HGB Conc 32.4 g/dl (31.0-35.0); Mean Corpuscular Hemoglobin 27.4 pg (27.0-33.0); Mean Corpuscular Volume 84.6 fL (80.0-98.0); NRBC Abs Auto 0.000 X10*3/uL (0.0-0.012); NRBC Pct Auto 0.0 /100WBC (0.0-0.2); Platelet Count 292 X10*3/uL (160-400); Red Blood Count 4.86 X10*6/uL (4.20-5.50); White Blood Count 8.1 X10*3/uL (4.8-10.8)
[2025-02-28 12:29] LABS: IDNOW Serial# 58CA691E; Strep A Nucleic Acid Negative (Negative)
[2025-02-28 12:42] LABS: Alanine Aminotransferase 57 U/L (0-31); Albumin Level 4.7 g/dL (3.5-5.0); Alkaline Phosphatase 77 U/L (39-117); Anion Gap 12 (12-20); Aspartate Amino Transferase 35 U/L (5-31); Blood Urea Nitrogen 7 mg/dL (9-16); Calcium 9.2 mg/dL (8.4-10.2); Carbon Dioxide 27 mmol/L (22-29); Chloride 104 mmol/L (96-108); Creatinine Clr Calc Pharmacy 93.6; Estimated Glomerular Filt Rate > 60; Potassium 3.4 mmol/L (3.3-5.1); Sodium 140 mmol/L (135-145); Total Protein 7.8 g/dL (6.5-8.0)
[2025-02-28 12:59] LABS: Resp Syncy Virus RNA Qual PCR NEGATIVE (Negative); SARS COV2 PCR INHOUSE NEGATIVE (Negative)
--- OUTSIDE RECORDS SUMMARY | 2025-02-28 16:27 | XMS_ITS | Clinical Summary ---
Author Organization [facility] it Address [address] [place] [address] Care Team Providers Care Industrial Engineering Technician Name Role Phone Elaina Lucero MD Primary Care Provider [phone] Immunizations Name Administration Dates Next Due Pfizer SARS-CoV-2 COVID-19, mRNA, LNP-S, preservative free 05/25/2021,05/02/2021 Surgical History Surgery Date Site/Laterality Comments BELT ABDOMINOPLASTY 07/2020 PROCEDURE: HISTORICAL TUMMY TUCK; COMMENT: in [place] Medical History Medical History Date Comments Anemia [...] of 3 - 19+ 3-dose series) 2012 HIV Screening 2022 Hepatitis C Screening 2022 Social Influencers of Health Screening 2022 COVID-19 Vaccine (3 - 2023-2 5 season) 2024 05/25/2021, 05/02/2021 Depression Screening 07/25/2024 Cervical Cancer Screening: P ap Smear 10/08/2024 10/08/2021, 06/13/2019, 06/07/2018 Influenza Vaccine (#1) 2025 03/28/2020 DTaP,Tdap,and Td Vaccines (3 - [...] 5 Years) and At-Risk Patients (6 to 49 Years) Aged Out No longer eligible b [...] RESULTING AGENCY - 10/20/2021 3:05 PM EDT [id number] THINPREP PAP, IMAGED: NEGATIVE FOR SQUAMOUS INTRAEITHELIAL [...] Recently Relevant to Health Maintenance Care Teams Industrial Engineering Technician Relationship Specialty Start Date End Date Elaina Lucero MD PCP - General Internal Medicine 07/01/20
--- OUTSIDE RECORDS SUMMARY | 2025-02-28 16:27 | XMS_ITS | Clinical Summary ---
Author Organization [facility] Address [address] [place] [address] Care Team Providers Care Gunite Mixer Name Role Phone Unavailable Primary Care Provider [...] Cervical Cancer Screening 2014 Pap Smear 2014 [id number] ( season) 2024 021, 05/02/2021 Alcohol and Drug Screen 07/25/2024 Depression Annual Screen 07/25/2024 Imm-Influenza (Season Ended) 2025 03/28/2020 Imm-DTaP/Tdap/Td (3 - Td or Tdap) 01/27/2030 020, 11/12/2015 Cervical Ablation/Cold-Knife Conization Discontinued Cervical Cryotherapy Discontinued Colposcopy Discontinued Endometrial Biopsy Discontinued Excision/Leep Discontinued HPV Genotyping Discontinued Vaginal Pap Discontinued Vulvoscopy Discontinued Insurance [employer] PL[employer] Member Subscriber Plan / Payer (Ef fective 2021-Present) Name:Wanda Ochoa Relation to Subscriber:Self Name:Wanda Ochoa Payer ID:[id number] Group ID:Not on file Type:Medicaid Address: [facility] [address] [place] [address]
--- OUTSIDE RECORDS SUMMARY | 2025-02-28 16:27 | XMS_ITS ---
Author Name [facility] Organization Unknown Care Team Organization Name Specialty Phone Email Start Date End Da te [facility] Primary Care 06/01/2022 03/12/20 24
--- OUTSIDE RECORDS SUMMARY | 2025-02-28 16:27 | XMS_ITS | Clinical Summary ---
Author Organization [employer] Address [address] [facility] [address] [place] [address] Care Team Providers Care Crew Mess Attendant Name Role Phone Maulik Grande MD Primary Care Prov ider Allergies No known active allergies Medications amitriptyline (Elavil) 25 MG tablet TAKE 1 TABLET BY MOUTH AT BEDTIME 90 tablet 2 5 Active fluticasone (Flonase) 50 MCG/ACT nasal spray Administer 2 sprays into each nostril Once per day. Active cetirizine (ZyrTEC) 10 MG tablet Take 1 tablet (10 mg) by mouth Once per day. 90 tablet 3 5 Active Azelastine HCl 137 MCG/SPRAY solution Administer 1 spray (137 mcg) into affected nostril(s) 2 times daily. 90 mL 1 5 Active Active Problems Problem Noted Date Diagnosed Date Skin tag 11/27/2024 Physical exam 07/06/2024 Assessment & Plan (07/06/2024 3:01 PM EST): Unremarkable physical examination, will order new labs for evalaution of secondary conditions associated with obesity Screening for cervical cancer 07/06/2024 Assessment & Plan (07/06/2024 3:02 PM EST): Patient refers had it done on 2021, was told to be repeated in 3 years (2024) Seasonal allergies 05/21/2024 Assessment & Plan (11/27/2024 2:20 PM EDT): Will send azelastine and zyrtec, call back if not improving Assessment & Plan (05/21/2024 12:58 PM EDT): [...] could not be finished. Will place referral Family History Medical History Relation Name Comments [...] 69 11/07/2024 2:11 PM EDT Temperature 36.6 C (97.9 F) 11/07/2024 2:11 PM EDT Respiratory Rate 16 11/07/2024 2:11 PM EDT Oxygen Saturation 99% 11/07/2024 2:11 PM EDT Inhaled Oxygen Concentration - - Weight 73 kg (161 lb) 11/07/2024 2:11 PM EDT Height 162.6 cm (5' 4 ) 07/02/2024 1:34 PM EST Body Mass Index 27.64 07/02/2024 1:34 PM EST Plan of Treatment Upcoming Encounters Date Type Department Care Team (Late st Contact Info) Description 03/12/2025 10:30 AM EDT Office Visit [facility] [address] [place], [place] [id number] Jeri Dhaliwal MD [address] [place] [address] Health Maintenance Due Date Last Done Comments HIV Screening 1993 Lipid Panel 1993 Family Planning (PISQ) 2008 HPV Vaccines (1 - 3-dose series) 2008 Hepatitis C Screening 2011 Hepatitis B Vaccines (1 of 3 - 19+ 3-dose series) 2012 COVID-19 Vaccine (3 - 2023-2 5 season) 2024 05/25/2021, 05/02/2021 Cervical Cancer Screening 10/08/2024 HPV/Cotest 10/08/2024 Pap Smear 10/08/2024 10/08/2021 Influenza Vaccine (#1) 2025 03/28/2020 SDOH Screening 06/18/2025 06/18/2024 Alcohol/Substance Use Screening 07/02/2025 07/02/2024 Depression Screening 07/02/2025 07/02/2024, 07/02/2024 Disability Screening 11/07/2025 11/07/2024 Tobacco Screening 11/07/2025 11/07/2024 DTaP/Tdap/Td Vaccines (3 [...] Years) and At-Risk Patients (6 to 49) Years Aged Out No longer eligible b ased [...] Recently Relevant to Health Maintenance Results * HM PAP/HPV (10/08/2021 1:40 PM EDT) us Historical Provider HEALTH MAINTENANCE Final Result from Last 3 Months or Most Recently Relevant to Health Maintenance Insurance [facility] Care Teams Crew Mess Attendant Relationship Specialty Start Date End Date Maulik Grande MD [address] [place] [phone] PCP - General Internal Medicine 02/01/24
[2025-02-28 17:00] VITALS: BP 111/78; PULSE 130; RESP 15; TEMP 36.6; O2SAT 98
[2025-02-28] MEDS: iohexoL 350 MG/ML 100 ML INFUS..BTL 85 ML IV (18:22)
--- NOTE | 2025-02-28 18:58 | PC.NURSE ---
patient noted to have left eye swelligng after ct scan. patient states it is painful. patient face/mouth/lips/airway noted to be intact. ED provider made aware
[2025-02-28 19:06] VITALS: BP 105/56; PULSE 102; RESP 12; TEMP 36.6; O2SAT 98
[2025-02-28 20:02] VITALS: BP 95/57; PULSE 97; RESP 19; TEMP 36.9; O2SAT 96
[2025-02-28 20:16] LABS: Appearance Urine Clear; Glucose Urine UA Negative (Negative); PH 5.5 (5.0-9.0); Specific Gravity - Urine 1.020 (1.005-1.025); UMIC TRIGGER UACC YES
[2025-02-28 21:30] VITALS: BP 95/57; PULSE 82; RESP 16; TEMP 36.9; O2SAT 96
== END 2025-02-28 21:31 | disposition home or self-care (01) ==
PROVIDERS: Physician Assistant Medical; Registered Nurse Emergency; Emergency Provider Emergency Medicine; PCP Internal Medicine
DX: B34.9 Viral infection, unspecified (principal); R00.0 Tachycardia, unspecified; D64.9 Anemia, unspecified
CPT/HCPCS: 71046; 74177; 80053; 81001; 84702; 85025; 87637; 87651; 93005; 96361; 96374; 96375; 99284; 99285; J1200; J1885; J2405; Q9967

== ENCOUNTER → 2025-02-28 11:37 | Outpatient (BNV) | payer SELFPAY | PROVIDERS: Emergency Provider Emergency Medicine; PCP Internal Medicine; Visit Provider Internal Medicine | DX: R00.0 Tachycardia, unspecified (principal) | CPT/HCPCS: 93010 ==

== ENCOUNTER → 2025-02-28 16:51 | Outpatient (BNV) | payer SELFPAY | PROVIDERS: Emergency Provider Emergency Medicine; PCP Internal Medicine; Visit Provider Specialist | DX: R10.30 Lower abdominal pain, unspecified (principal); M54.50 Low back pain, unspecified; R11.2 Nausea with vomiting, unspecified; R19.7 Diarrhea, unspecified; R05.9 Cough, unspecified; R50.9 Fever, unspecified | CPT/HCPCS: 71046; 74177 ==

== ENCOUNTER 2025-05-25 16:14 | Emergency (ER) | payer OTHER, SELFPAY ==
--- NOTE | 2025-05-25 | ECG_ITS ---
Test Reason : chest pain Blood Pressure : */* mmHG Vent. Rate : 103 BPM Atrial Rate : 103 BPM P-R Int : 132 ms QRS Dur : 72 ms QT Int : 326 ms P-R-T Axes : 54 54 33 degrees QTcB Int : 427 ms Sinus tachycardia Otherwise normal ECG When compared with ECG of 28-Feb-2025 11:59, No significant change was found Referred By: Generic ED Physician Electronically Signed By: LUDA DEE
--- NOTE | ~2025-05-25 | US_ITS ---
CLINICAL HISTORY: abd pain +preg US OB 1st Trimester transabdominal and transvaginal with Doppler Comparison: CT/SR - CT ABDOMEN PELVIS W IV CON - 02/28/25 18:[address] - CT ABDOMEN PELVIS W IV CON - 02/28/25 18:08 EDT Findings: Single intrauterine . MSD: 1.1 cm. CRL: 4.8 mm. pole is not well seen. EGA: 6 weeks, 1 day. LALY: January 17, 2026. Previously established gestational age: N/A . Normal yolk sac . cardiac activity can not be obtained. No subchorionic bleed. Right ovary 2.1 x 2.9 x 2.3 cm. Left ovary 2 x 3.1 x 1.7 cm. Normal color Doppler with arterial/venous spectral tracing of both ovaries. IMPRESSION: 1. Single intrauterine estimated 6 weeks, 1 day gestational age by today's ultrasound criteria. Continued follow up is recommended to document viability. 2. No evidence of ovarian torsion. This document has been electronically signed by: Lucio Paredes MD on 05/25/2025 19:56:03
[2025-05-25 16:27] VITALS: BP 108/66; PULSE 105; RESP 16; TEMP 36.7; O2SAT 98; BMI 28.3
--- NOTE | 2025-05-25 16:28 | ED.PREGNANCY ---
HPI - General Chief complaint: Chest Pain Stated complaint: chest pain//vomiting Time Seen by Provider: 05/25/25 19:11 Source: patient and old records reviewed Mode of arrival: ambulatory Limitations: no limitations History of Present Illness ED Provider: AJAY HPI Narrative: 29 yo female with PMH of prior chest pain but no risk factors for ACS, she has hx of tachycardia as well not on bblockers but has followed with our cardiology. She has no URI symptoms, no IVDA, no fam hx of CAD or SCD. She comes in with c/o chest pains on and off and tightness but no cough/dyspnea/leg swelling. She has no recent travel or procedures. She has mild nausea with this she is . She denies abdominal pain, vaginal bleeding. She has no prior hx of blood clots. She also notes at time her L hand tingles and falls asleep at night - she types a lot at work. No known hx of carpal tunnel MD Complaint: other Onset (ago): day(s) (3) Pain Consistency: intermittent Severity: mild Relieving factors: none Exacerbating factors: none Associated symptoms: other Vaginal discharge: none Vaginal bleeding: none Related Data Home Medications ?Medication ?Instructions ?Recorded ?Confirmed amitriptyline 25 mg tablet 25 mg PO BEDTIME 12/17/22 12/17/22 cetirizine 10 mg tablet 10 mg PO DAILY 12/17/22 12/17/22 Previous Rx's ?Medication ?Instructions ?Recorded metoprolol succinate 25 mg 25 mg PO DAILY #15 tabs 12/19/22 tablet,extended release 24 hr (Toprol XL) amitriptyline 25 mg tablet 25 mg PO BEDTIME #30 tabs 01/03/24 cetirizine 10 mg tablet 10 mg PO DAILY PRN allergy 01/03/24 symptoms #30 tabs cyclobenzaprine 10 mg tablet 10 mg PO TID PRN muscle spasm #14 01/03/24 tabs doxycycline monohydrate 100 mg 100 mg PO BID #14 caps 01/03/24 capsule metoprolol succinate 25 mg 25 mg PO DAILY #30 tabs 01/03/24 tablet,extended release 24 hr nirmatrelvir 300 mg (150 mg See Rx Instructions PO .COMPLEX 03/22/24 x2)-ritonavir 100 mg tablet,dose #30 ea pack (Paxlovid) ondansetron 4 mg disintegrating 4 mg PO Q8H PRN nausea and 03/22/24 tablet vomiting #7 tabs acetaminophen 325 mg tablet 975 mg (3 x 325 mg) PO Q4H PRN 02/28/25 (Tylenol) fever or pain #30 tabs ibuprofen 600 mg tablet 600 mg PO Q8H PRN fever or pain 02/28/25 #30 tabs ondansetron 4 mg disintegrating 4 mg PO Q12H PRN nausea and 02/28/25 tablet vomiting 5 days #10 tabs Allergies Allergy/AdvReac Type Severity Reaction Status Date / Time pollen extracts Allergy Mild Itchy Eyes Verified 05/25/25 16:28 Review of Systems Review of Systems: Constitutional : No Weight loss, No Fever, No Chills ENT/Mouth : No sore throat, No Rhinorrhea Eyes: No Eye Pain, No Swelling Cardiovascular : pos Chest Pain, no SOB Respiratory : No Cough, No Sputum Gastrointestinal : pos Nausea, No Vomiting, No Diarrhea, No abdominal Pain, No Hematochezia, No Melena Genitourinary : No Dysuria, No Urinary Frequency Musculoskeletal : No joint pain, No Myalgias, No Joint Swelling Skin : No Skin Lesions, No rash Neuro : No Weakness, No Numbness, No Dizziness, No Headache All other systems reviewed and are negative [facility] Past Medical History Attestation statement: The following information was validated with the patient. Source: old records reviewed Medical History Low blood pressure Surgical History S/P abdominoplasty Social History Social History Alcohol intake: current Alcohol intake frequency: does not drink Patient Tobacco Use Status: Never used Tobacco service: No Current occupational status: unemployed Physical Exam Vital Signs: Vital Signs: Last Vital Signs Temp 98.1 F 05/25/25 16:27 Pulse 105 H 05/25/25 16:27 Resp 16 05/25/25 16:27 BP 108/66 05/25/25 16:27 Pulse Ox 98 05/25/25 16:27 BMI result Body Mass Index 28.3 Appearance: Alert. Oriented X3. No acute distress. Eyes: Pupils equal, round and reactive to light. ENT: Pharynx normal. Neck: Normal inspection. Neck supple. CVS: Normal heart rate and rhythm. Pulses normal. Respiratory: No respiratory distress. Breath sounds normal. Abdomen: Soft and nontender. Skin: Skin warm and dry. Normal skin color. Normal skin turgor. Extremities: No lower extremity edema. L hand + tinels and phalens sign able to reproduce her symptoms by just tapping on the carpal tunnel area Neuro: Oriented X 3. No motor deficit. No sensory deficit. CN2-12 intact Course Course Course Narrative: This is a Rapid Medical Exam performed in triage by Gloria Cueto PA-C. Full HPI, ROS and PE to be performed by primary ED provider. 29 yo F @ about 7 weeks gestation presenting to the ED c/o CP x yesterday with L arm numbness. Also reports ROWE, left sided abdominal pain and nausea. States has 1st OB appt in 2 weeks - hasnt had any labs or imaging to confirm yet PE: NAD, nontoxic appearing, ambulating w/steady gait Plan: EKG, labs, UA Medical Decision Making Medical Decision Making [facility] Narrative: 29 yo female with PMH of tachycardia, chest pains she has no known past VTE or ACS - no risk factors. She has atypical symptoms. I am going to obtain EKG, trop, ddimer and no URI symptoms doubt pneumonia. She has no edema on CXR either. She could have some dehydration causing tachycardia though she has been to cardiology for the same in the past. I suspect known chronic tachycardia and have low susp for VTE/ACS> Differential Diagnosis Differential Diagnoses: The differential diagnosis associated with the presentation includes dehydration, tachycardia, anemia Admission/Observation Consideration of admission/observation: Escalation of care including admission/observation considered work up reassuring stable for DC Lab Data [facility] Lab Attestation statement: I reviewed the patient's lab results. 05/25/25 17:06 05/25/25 17:06 Labs: Lab Results 05/25/25 Range/Units 17:06 WBC 10.2 (4.8-10.8) X10*3/uL RBC 4.49 (4.20-5.50) X10*6/uL Hgb 12.1 (12.0-16.0) g/dl Hct 37.7 (37.0-47.0) % MCV 84.0 (80.0-98.0) fL MCH 26.9 L (27.0-33.0) pg MCHC 32.1 (31.0-35.0) g/dl RDW 14.7 (11.0-16.0) % Plt Count 291 (160-400) X10*3/uL MPV 11.1 (9.4-12.3) fL Immature Gran % (Auto) 0.2 (0.0-0.4) % Neut % (Auto) 63.7 (45-73) % Lymph % (Auto) 28.8 (20-40) % Mayes % (Auto) 5.6 (2-11) % Eos % (Auto) 1.2 (0-4) % Baso % (Auto) 0.5 (0-2) % Lymph # (Auto) 2.9 (1.2-4.9) X10*3/uL Mayes # (Auto) 0.6 (0.1-1.2) X10*3/uL Eos # (Auto) 0.1 (0.0-0.4) X10*3/uL Baso # (Auto) 0.1 (0.0-0.2) X10*3/uL Abs Immat Gran (auto) 0.02 (0.00-0.03) X10*3/uL Absolute Neuts (auto) 6.5 (2.0-8.3) x10*3/uL Absolute Nucleated RBC 0.000 (0.0-0.012) X10*3/uL Nucleated RBC % (auto) 0.0 (0.0-0.2) /100WBC Sodium 137 (135-145) mmol/L Potassium 3.6 (3.3-5.1) mmol/L Chloride 106 (96-108) mmol/L Carbon Dioxide 22 (22-29) mmol/L Anion Gap 13 (12-20) BUN 10 (9-16) mg/dL Creatinine 0.62 (0.5-1.4) mg/dL Estim Creat Clear Calc 120.7 Estimated GFR > 60 Random Glucose 82 (60-115) mg/dL Calcium 9.2 (8.4-10.2) mg/dL Magnesium 2.2 (1.6-2.6) mg/dL Total Bilirubin 0.3 (0.0-1.0) mg/dL Direct Bilirubin 0.1 (0.0-0.5) mg/dL AST 36 H (5-31) U/L ALT 85 H (0-31) U/L Alkaline Phosphatase 72 (39-117) U/L Troponin I High Sens < 2.7 (<3.5-17.0) ng/L Total Protein 7.3 (6.5-8.0) g/dL Albumin 4.4 (3.5-5.0) g/dL Lipase 21 (8-78) U/L Beta HCG, Quant 53123 mIU/mL Independent Interpretation I performed an independent interpretation of an: EKG and Ultrasound (early IUP) Interpretation: Rate: 103 Rhythm: sinus tach [place]: normal Normal P waves. Normal COLIN. Normal QRS complex. ST T wave : no RYAN, nonspecific ST T wave changes in lateral leads qTC: 427 prior studies: similar to December 2023 The study has been interpreted contemporaneously by me. . Radiology Impression Discussion of test interpretation with radiology: I have reviewed the radiologist's reading. External Record Review External record reviewed: Outpatient record Prescription Management I considered prescription management with: Other Discharge Plan Discharge Clinical Impression: Atypical chest pain Patient Disposition: Home, Self-Care Instructions: Chest Pain (ED) Additional Instructions: Quant 56076 EKG unchanged, heart test negative blood clot test negative your Ultrasounds shows IUP at 6 weeks 1 day - you should follow up with your OBGYN and repeat testing in 1 week your labs otherwise were negative please monitor your symptoms and return for any worsening symptoms or concerns. Findings: Single intrauterine . MSD: 1.1 cm. CRL: 4.8 mm. pole is not well seen. EGA: 6 weeks, 1 day. LALY: January 17[birth year] 2026. Previously established gestational age: N/A . Normal yolk sac . cardiac activity can not be obtained. No subchorionic bleed. Right ovary 2.1 x 2.9 x 2.3 cm. Left ovary 2 x 3.1 x 1.7 cm. Normal color Doppler with arterial/venous spectral tracing of both ovaries. IMPRESSION: 1. Single intrauterine estimated 6 weeks, 1 day gestational age by today's ultrasound criteria. Continued follow up is recommended to document viability. 2. No evidence of ovarian torsion. Prescriptions: No Action cetirizine 10 mg tablet 10 mg PO DAILY amitriptyline 25 mg tablet 25 mg PO BEDTIME metoprolol succinate [Toprol XL] 25 mg tablet extended release 24 hr 25 mg PO DAILY Qty: 15 0RF doxycycline monohydrate 100 mg capsule 100 mg PO BID Qty: 14 0RF metoprolol succinate 25 mg tablet extended release 24 hr 25 mg PO DAILY Qty: 30 0RF amitriptyline 25 mg tablet 25 mg PO BEDTIME Qty: 30 0RF cetirizine 10 mg tablet 10 mg PO DAILY PRN (Reason: allergy symptoms) Qty: 30 0RF cyclobenzaprine 10 mg tablet 10 mg PO TID PRN (Reason: muscle spasm) Qty: 14 0RF Paxlovid 300 mg (150 mg x 2)-100 mg tablets,dose pack See Rx Instructions .ROUTE .COMPLEX Qty: 30 0RF Rx Instructions: take TWO 150 mg tablets of nirmatrelvir with ONE 100 mg tablet of ritonavir twice daily for 5 days ondansetron 4 mg tablet,disintegrating 4 mg PO Q8H PRN (Reason: nausea and vomiting) Qty: 7 0RF ondansetron 4 mg tablet,disintegrating 4 mg PO Q12H PRN (Reason: nausea and vomiting) 5 Days Qty: 10 0RF acetaminophen [Tylenol] 325 mg tablet 975 mg PO Q4H PRN (Reason: fever or pain) Qty: 30 0RF ibuprofen 600 mg tablet 600 mg PO Q8H PRN (Reason: fever or pain) Qty: 30 0RF Print Language: St Helenian
[2025-05-25 17:14] LABS: MANUAL DIFF FLAG NO
[2025-05-25 17:16] LABS: Hematocrit 37.7 % (37.0-47.0); Hemoglobin 12.1 g/dl (12.0-16.0); Imm Gran Abs Auto 0.02 X10*3/uL (0.00-0.03); Imm Gran Pct Auto 0.2 % (0.0-0.4); Lymphocytes Absolute Auto 2.9 X10*3/uL (1.2-4.9); Mean Corpuscular HGB Conc 32.1 g/dl (31.0-35.0); Mean Corpuscular Hemoglobin 26.9 pg (27.0-33.0); Mean Corpuscular Volume 84.0 fL (80.0-98.0); NRBC Abs Auto 0.000 X10*3/uL (0.0-0.012); NRBC Pct Auto 0.0 /100WBC (0.0-0.2); Platelet Count 291 X10*3/uL (160-400); Red Blood Count 4.49 X10*6/uL (4.20-5.50); White Blood Count 10.2 X10*3/uL (4.8-10.8)
[2025-05-25 17:37] LABS: Alanine Aminotransferase 85 U/L (0-31); Albumin Level 4.4 g/dL (3.5-5.0); Alkaline Phosphatase 72 U/L (39-117); Anion Gap 13 (12-20); Aspartate Amino Transferase 36 U/L (5-31); Blood Urea Nitrogen 10 mg/dL (9-16); Calcium 9.2 mg/dL (8.4-10.2); Carbon Dioxide 22 mmol/L (22-29); Chloride 106 mmol/L (96-108); Creatinine Clr Calc Pharmacy 120.7; Estimated Glomerular Filt Rate > 60; Lipase 21 U/L (8-78); Magnesium 2.2 mg/dL (1.6-2.6); Potassium 3.6 mmol/L (3.3-5.1); Sodium 137 mmol/L (135-145); Total Protein 7.3 g/dL (6.5-8.0)
[2025-05-25 17:38] LABS: Troponin-I High Sensitivity < 2.7 ng/L (<3.5-17.0)
--- OUTSIDE RECORDS SUMMARY | 2025-05-25 18:44 | XMS_ITS | Encounter Summary ---
Author Organization [employer] Address [address] [facility] [address] [place] [address] Care Team Providers Care Cardiac Monitor Name Role Phone Maulik Grande MD Primary Care Prov ider Reason for Visit * Reason Onset Date Comments Nurse Triage 11/27/2024 Encounter Details Date Type Department Care Team ([facility] st Contact Info) Description 11/27/2024 Telephone [facility] [address] [place] [address] Maulik Grande MD [address] [place] [address] Nurse Triage Social History Tobacco Use Types [...] encounter Miscellaneous Notes * Telephone Encounter - Kalyani Guerra RN - 11/27/2024 12:30 PM EDT Called pt. She states that she gets Seasonal allergies every year and is looking for refills on Nasal spray, pills and also allergy eye drops. Pt also has a fine red itchy rash on her neck from seasonal allergies that she wants to show PCP to get a cream. No fever. Set up a Video visit with pt. ForPCP to see rash on neck which pt. States is visible. No cold sx. Protocol Used: Nasal Allergies (Hay Fever) (Adult) Protocol-Based Disposition: Home Care Positive Triage Question: * Nasal allergies occur only certain times of year * All higher-acuity triage questions were negative Care Advice Discussed: * Reassurance and Education - Hay Fever * Wash Pollen off Body Daily * Avoiding Pollen * Antihistamine Medicines for Hay Fever * Nasal Decongestants for a Very Stuffy Nose * For Eye AllergiesProtocol Used: Eye - Allergy (Adult) Protocol-Based Disposition: Home Care Positive Triage Question: * Mild eye allergy * All higher-acuity triage questions were negative Care Advice Discussed: * Wash off Allergens Daily * Use a Cold Compress * Antihistamine - Vasoconstrictor Eyedrops for Itchy or Red Eyes * Telephone Encounter - Marian Loco - 11/27/2024 12:25 PM EDT Tc from pt calling to report allergy symptoms. Sneezing, itchy throat, runny nose, itchy eyes. Pt also reported rash on neck due to allergies. Contact pt at [phone] documented in this encounter Plan of Treatment Not on file documented as of this encounter Visit Diagnoses Not on filedocumented in this encounter Additional Health Concerns Assessment Noted Time PHQ-9 Depression Total Score: 4 07/02/20 1:35 PM EST documented as of this encounter Care Teams Cardiac Monitor Relationship Specialty Start Date End Date Maulik Grande MD [address] [place] [id number] PCP - General Internal Medicine 02/01/24 documented as of this encounter
--- OUTSIDE RECORDS SUMMARY | 2025-05-25 18:44 | XMS_ITS | Clinical Summary ---
Author Organization [employer] Address [address] [facility] [address] [place] [address] Care Team Providers Care Supply Analyst Name Role Phone Maulik Grande MD Primary Care Prov ider Allergies No known active allergies Medications * This document contains information received from the source organization and may not represent a complete record from that organization. amitriptyline (Elavil) 25 MG tablet TAKE 1 [...] Active Problems Problem Noted Date Diagnosed Date MARLENE (generalized anxiety disorder) 05/23/2025 Anxiety 04/29/2025 Assessment & Plan (04/29/2025 2:35 PM EDT): Patient has been off her job due to anxiety related issues, she has been following a therapist that she refers has been paying out off pocket, will refer to , currently her FMLA is until Jun 04 2025, she will call if extension is needed, will refer to Skin tag 11/27/2024 Physical exam 07/06/2024 Assessment [...] not be finished. Will place referral Encounters * This document contains information received from the source organization and may not represent a complete record from that organization. Date Type Department Care Team Description 04/29/2025 1:15 PM EDT Telemedicine [facility] [address] [place] [address] Maulik Grande MD Anxiety (Primary Dx) 04/29/2025 Travel 03/12/2025 10:30 AM EDT Office Visit [facility] [address] [place] [address] Jeri Dhaliwal MD Skin tag (Primary Dx) 03/12/2025 Travel 02/28/2025 Orders Only [facility] External Provider, [facility] from Last 3 Months Family History Medical [...] Answer Date Recorded Patient Health Questionnaire-9 Score 20 05/23/2025 Patient Health Questionnaire-9 Score 20 05/23/2025 Last PHQ-9: Questionnaire Data Not on file 1 Housing Stability Answer Date Recorded What is [...] Date Recorded Patient Health Questionnaire-2 Score 4 05/23/2025 Internet Access Answer Date Recorded Internet Access [...] Sign Reading Time Taken Comments Blood Pressure 114/71 03/12/2025 10:31 AM EDT Pulse 94 03/12/2025 10:31 AM EDT Temperature 36.3 C (97.3 F) 03/12/2025 10:31 AM EDT Respiratory Rate 20 03/12/2025 10:31 AM EDT Oxygen Saturation 98% 03/12/2025 10:31 AM EDT Inhaled Oxygen Concentration - - Weight 70.8 kg (156 lb) 03/12/2025 10:31 AM EDT Height 162.6 cm (5' 4 ) 03/12/2025 10:31 AM EDT Body Mass Index 26.78 03/12/2025 10:31 AM EDT Plan of Treatment Health Maintenance Due Date Last Done Comments HIV Screening 1993 Lipid Panel 1993 Family Planning (PISQ) 2008 HPV Vaccines (1 - 3-dose series) 2008 Hepatitis C Screening 2011 Cervical Cancer Screening 10/08/2024 HPV/Cotest 10/08/2024 Pap Smear 10/08/2024 10/08/2021 COVID-19 Vaccine ( season) 2025 05/25/2021, 05/02/2021 Influenza Vaccine (#1) 2025 03/28/2020 SDOH Screening 06/18/2025 06/18/2024 Alcohol/Substance Use Screening 07/02/2025 07/02/2024 Disability Screening 11/07/2025 11/07/2024 Depression Monitoring 11/21/2025 05/23/2025, 025 Tobacco Screening 03/12/2026 03/12/2025 DTaP/Tdap/Td Vaccines (9 - Td or Tdap) 01/27/2030 01/28/2020, 11/12/2015, 03/25/2005, Additional history exists Zoster Vaccines (1 of 2) 2043 RSV Patients and Patients Aged 60 years or older (1 - 1-dose 75+ series) 2068 HIB Vaccines Aged Out 03/12/1994, 12/23, 1993, Additional history exists No longer eligible based on patient's age to complete this topic Hepatitis B Vaccines Completed 01/07/1996, 03/12/1994, 1993 IPV Vaccines Completed 08/13/1997, 12/23, 1993, Additional history exists Hepatitis A Vaccines Aged Out No long [...] 49) Years Aged Out No longer eligible based on patient's age to complete this topic RSV under 20 months Aged Out No longe r eligible based on patient's age to complete this topic Rotavirus Vaccines Aged Out No longer eligible based on patient's age to complete this topic Procedures Procedure Name Priority Date/Time Associated Diagnosis Comments DESTRUCTION OF LESION Routine 03/12/2025 12:54 PM EDT Skin tag URINALYSIS, COMPLETE, WITH REFLEX TO CULTURE Routine 02/28/2025 8:[address] ABDOMEN PELVIS W CONTRAST Routine 02/28/2025 7:15 PM EDT XR CHEST 2 VIEWS Routine 02/28/2025 6:05 PM EDT HM PAP/HPV Routine 10/08/2021 1:40 PM EDT from Last 3 Months or Most Recently Relevant to Health Maintenance Results * Destruction of lesion (03/12/2025 12:54 PM EDT) Jeri Ray MD - 03/12/2025 12:54 PM EDT Jeri Dhaliwal MD 03/12/2025 12:56 PM Destruction of lesion Date/Time: 03/12/2025 12:54 PM Performed by: Jeri Dhaliwal MD Authorized by: Jeri Dhaliwal MD Consent: Consent obtained: Verbal and written Risks discussed: Infection, pain and poor cosmetic result Alternatives discussed: Observation [place] protocol: Procedure explained and questions answered to patient or proxy's satisfaction: yes Relevant documents present and verified: no Test results available: no Imaging studies available: no Required blood products, implants, devices, and special equipment available: no Site/side marked: no Immediately prior to procedure, a time out was called: yes Number of Lesions: 2 Lesion 1: Body area: head/neck Head/neck location: neck Initial size (mm): 2 Final defect size (mm): 2 Malignancy: benign lesion Lesion 2: Body area: head/neck Head/neck location: neck Initial size (mm): 1 Final defect size (mm): 1 Malignancy: benign lesion Comments: 2 lesions treated by electrodesiccation after infiltration with lidocaine 1% less than 0.5 mL[id number]. Expiratory date September 2025. The procedure was well-tolerated. us Jeri Dhaliwal MD DERM PROCEDURE ORDERABLES F inal Result * (ABNORMAL) Urinalysis, Complete, with Reflex to Culture (02/28/2025 8:06 PM EDT) Color Urine Yellow [facility] Appearance Urine Clear [facility] PH 5.5 5.0 - 9.0 [facility] Glucose Urine UA Negative Negative mg/dL [facility] Urine Blood Negative Negative [facility] Specific [place] - Urine 1.020 1.005 - 1.025 [facility] Urine Protein Trace Neg-Trace mg/dL [facility] Urine Ketones Trace Negative mg/dL [facility] Nitrite Urine Negative Negative [facility] Leukocyte Esterase Urine Trace(A) Negative [facility] RBC Urine 0-2 0 - 2 /HPF [facility] Urine WBC 0-5 0 - 5 /HPF [facility] Urine Squamous Epithelial Cell 6-10 0 - 2 /HPF [facility] Urine Bacteria 1+ None Seen [facility] Hyaline Casts, Urine 0-2 0 - 2 /LPF [facility] 02/28/2025 8:06 PM EDT 02/28/2025 8:12 PM EDT Narrative [facility] - 02/28/2025 8:30 PM EDT Urine, Clean Catch us Generic External Data Provider LAB URINE ORDERAB LES Final Result [facility] [address] [place] [phone] * CT Abdomen Pelvis w/ Contrast (02/28/2025 7:15 PM EDT) Anatomical Region Laterality Modality Body, Pelvis, Abdomen Computed T omography 02/28/2025 7:15 PM EDT Narrative 02/28/2025 7:17 PM EDT [address] [address] [address] Scan Report Signed Patient: Wanda Ochoa MR #: [id number] : 1995 Acct:[id number] Age/Sex: 29 / F ADM Date: 02/28/25 Loc: HO.ED Attending Dr: Ordering Physician: Bettina Scott Date of Service: 02/28/25 Procedure(s): CT abdomen pelvis w IV con Accession Number(s): [id number] cc: Maulik Grande MD; Bettina Scott Report Number: [id number]: Total DLP = 465.00 mGy-cm CLINICAL HISTORY: lower abd pain, low back pain, N V D CT abdomen and pelvis with contrast Comparison: CT/SR - CT ABDOMEN PELVIS WITH IV CONTRAST - 01/03/24 05:11 EDT Findings: No consolidation or effusion. Minimal right basilar subsegmental atelectasis versus scarring. Unremarkable gallbladder. No biliary ductal dilatation. The liver, spleen, pancreas, adrenal glands and kidneys are within normal limits. No ureteral stones and no hydronephrosis or hydroureter. No bowel obstruction, pneumoperitoneum, or pneumatosis. No free fluid or loculated fluid collection. No adenopathy. Appendix is normal. Retroverted uterus. Interval removal of IUD. Urinary bladder only mildly filled and appears unremarkable. Bilateral small ovarian follicles. Abdominal aorta normal in size. No acute fracture. IMPRESSION: No acute findings. This document has been electronically signed by: Mala Amador MD on 02/28/2025 19:15:26 Dictated By: Mala Amador MD Signed By: <Electronically signed by Mala Amador MD in OV> 02/28/251915 DD/ 14 TD/TT: 02/28/251914 Rat Exterminator: Procedure Note Donestuardoter, Image - 02/28/[address] [place] [address] [address] Scan Report Signed Patient: Franc Ochoa #: [id number] : 1995Acct:[id number] Age/Sex: Date: 02/28/25 Loc: HO.ED Attending Dr: Ordering Physician: Bettina Scott Date of Service: 02/28/25 Procedure(s): CT abdomen pelvis w IV con Accession Number(s): [id number] cc: Maulik Grande MD; Bettina Scott Report Number: [id number]: Total DLP = 465.00 mGy-cm CLINICAL HISTORY: lower abd pain, low back pain, N V D CT abdomen and pelvis with contrast Comparison: CT/SR - CT ABDOMEN PELVIS WITH IV CONTRAST - 01/03/24 05:11 EDT Findings: No consolidation or effusion. Minimal right basilar subsegmental atelectasis versus scarring. Unremarkable gallbladder. No biliary ductal dilatation. The liver, spleen, pancreas, adrenal glands and kidneys are within normal limits. No ureteral stones and no hydronephrosis or hydroureter. No bowel obstruction, pneumoperitoneum, or pneumatosis. No free fluid or loculated fluid collection. No adenopathy. Appendix is normal. Retroverted uterus. Interval removal of IUD. Urinary bladder only mildly filled and appears unremarkable. Bilateral small ovarian follicles. Abdominal aorta normal in size. No acute fracture. IMPRESSION: No acute findings. This document has been electronically signed by: Mala Amador MD on 02/28/2025 19:15:26 Dictated By: Mala Amador MD Signed By: <Electronically signed by Mala Amador MD in OV> 02/28/251915 DD/ 14 TD/TT: 02/28/251914 Rat Exterminator: us [facility] External Provider IMG CT PROCEDURES Final Result * XR Chest 2 Views (02/28/2025 6:05 PM EDT) Anatomical Region Laterality Modality Chest Radiographic Shanda ging 02/28/2025 6:05 PM EDT Narrative 02/28/2025 6:07 PM EDT [address] [address] XRay Report Signed Patient: Wanda Ochoa MR #: [id number] : 1995 Acct:[id number] Age/Sex: 29 / F ADM Date: 02/28/25 Loc: HO.ED Attending Dr: Ordering Physician: Bettina Scott Date of Service: 02/28/25 Procedure(s): XR chest 2V Accession Number(s): [id number] cc: Maulik Grande MD; Bettina Scott CLINICAL HISTORY: cough fever 2 view chest x-ray Comparison: CR/SR - XR CHEST 2 VIEWS - 03/22/24 18:43 EDT Findings: Normal size heart. No consolidation, pleural effusion or pneumothorax. No acute fracture. IMPRESSION: 1. No acute findings. This document has been electronically signed by: Mala Amador MD on 02/28/2025 18:05:47 Dictated By: Mala Amador MD Signed By: <Electronically signed by Mala Amador MD in OV> 02/28/251806 DD/ 04 TD/TT: 02/28/251804 Rat Exterminator: Procedure Note Donotuseinterpreter, Image - 02/28/[address] [address] XRay Report Signed Patient: Amos OchoaR #: [id number] : 1995Acct:[id number] Age/Sex: 29 / FADM Date: 02/28/25 Loc: HO.ED Attending Dr: Ordering Physician: Bettina Scott Date of Service: 02/28/25 Procedure(s): XR chest 2V Accession Number(s): [id number] cc: Maulik Grande MD; Bettina Scott CLINICAL HISTORY: cough fever 2 view chest x-ray Comparison: CR/SR - XR CHEST 2 VIEWS - 03/22/24 18:43 EDT Findings: Normal size heart. No consolidation, pleural effusion or pneumothorax. No acute fracture. IMPRESSION: 1. No acute findings. This document has been electronically signed by: Mala Amador MD on 02/28/2025 18:05:47 Dictated By: Mala Amador MD Signed By: <Electronically signed by Mala Amador MD in OV> 02/28/251806 DD/ 04 TD/TT: 02/28/251804 Rat Exterminator: [facility] External Provider IMG XR PROCEDURES Final Result * HM PAP/HPV (10/08/2021 1:40 PM EDT) Historical Provider HEALTH MAINTENANCE Final Result from Last 3 Months or Most Recently Relevant to Health Maintenance [place] [address] [place] [address] 2 Care Teams Supply Analyst Relationship Specialty Start Date End Date Maulik Grande MD [address] [place] [id number] PCP - General Internal Medicine 02/01/24
--- OUTSIDE RECORDS SUMMARY | 2025-05-25 18:44 | XMS_ITS | Encounter Summary ---
Author Organization [employer] Address [address] [facility] [address] [place] [address] Care Team Providers Care Medical Dermatologist Name Role Phone Maulik Grande MD Primary Care Prov ider Encounter Details Date Type Department Care Team (Late st Contact Info) Description 05/09/2024 Orders Only [facility] [address] [place] [address] Provider, MD Andrew Social History Tobacco Use [...] on filedocumented in this encounter Care Teams Medical Dermatologist Relationship Specialty Start Date End Date Maulik Grande MD [address] [place] [address] PCP - General Internal Medicine 02/01/24 documented as of this encounter
--- OUTSIDE RECORDS SUMMARY | 2025-05-25 18:44 | XMS_ITS | Clinical Summary ---
Author Organization [facility] Address [address] [place] [address] Care Team Providers Care Coat Maker Name Role Phone Unavailable Primary Care Provider [...] Dates Next Due PFIZER COVID VACCINE, VIGNESH KIRAN, 12+ 05/25/2021 ,05/02/2021 Social History Tobacco Use [...] Done Comments Anxiety Screening 1993 HPV Screening (self-collect) 1993 HPV Screening 1993 Hepatitis C Screening 1993 Pap + HPV 1993 Tobacco Screening 1993 HIV Screening 2008 Relationship Safety Screening/Counseling 2008 Hypertension Screening (#1) 2011 Imm-Hepatitis B (1 of 3 - 19 + 3-dose series) 2012 Cervical Cancer Screening 2014 Pap Smear 2014 Imm-HPV (1 - 3-dose SCDM series) 2020 Alcohol and Drug Screen 07/25/2024 Depression Annual Screen 07/25/2024 [id number] (3 - season) 2025 021, 05/02/2021 Imm-Influenza (#1) 2025 03/28/2020 Imm-DTaP/Tdap/Td (3 - Td or Tdap) 01/27/2030 020, 11/12/2015 Cervical Ablation/Cold-Knife Conization Discontinued Cervical Cryotherapy Discontinued Colposcopy Discontinued Excision/Leep Discontinued HPV Genotyping Discontinued Vaginal Pap Discontinued Vulvoscopy Discontinued Insurance [employer] Member Subscriber Plan / Payer (Ef fective 2021-Present) Name:Wanda Ochoa Relation to Subscriber:Self Name:Wanda Ochoa Payer ID:[id number] Group ID:Not on file Type:Medicaid Address: [facility] [address] [place] [address]
--- OUTSIDE RECORDS SUMMARY | 2025-05-25 18:44 | XMS_ITS | Clinical Summary ---
Author Organization [facility] it Address [address] [place] [address] Care Team Providers Care Solar Energy Sales Specialist Name Role Phone Elaina Lucero MD Primary Care Provider [phone] Immunizations Immunization Administration Dates Next Due Pfizer SARS-CoV-2 COVID-19, mRNA, LNP-S, preservative free 05/25/2021,05/02/2021 Surgical History Surgery Date Site/Laterality Comments BELT ABDOMINOPLASTY 07/2020 PROCEDURE: HISTORICAL TUMMY TUCK; COMMENT: in [place] Medical History Medical History Date Comments Anemia [...] of 3 - 19+ 3-dose series) 2012 HPV Vaccines (1 - 3-dose SCD M series) 2020 HIV Screening 2022 Hepatitis C Screening 2022 Social Influencers of Health Screening 2022 Depression Screening 07/25/2024 Cervical Cancer Screening: P ap Smear 10/08/2024 10/08/2021, 06/13/2019, 06/07/2018 COVID-19 Vaccine (3 - 2024-2 6 season) 2025 05/25/2021, 05/02/2021 Influenza Vaccine (#1) 2025 03/28/2020 DTaP,Tdap,and Td Vaccines (3 - Td or Tdap) 01/27/2030 01/28/2020, 11/12/2015 RSV Immunization Adult Patients (1 - 1-dose 75+ series) 2068 HIB [...] RESULTING AGENCY - 10/20/2021 3:05 PM EDT [id number] THINPREP PAP, IMAGED: NEGATIVE FOR SQUAMOUS INTRAEITHELIAL [...] Recently Relevant to Health Maintenance Care Teams Solar Energy Sales Specialist Relationship Specialty Start Date End Date Elaina Lucero MD PCP - General Internal Medicine 07/01/20
[2025-05-25 20:00] VITALS: BP 108/71; PULSE 96; RESP 20; TEMP 36.9; O2SAT 100
[2025-05-25 20:02] LABS: Appearance Urine Clear; Glucose Urine UA Negative (Negative); PH 6.5 (5.0-9.0); Specific Gravity - Urine >= 1.030 (1.005-1.025); UMIC TRIGGER UACC YES
[2025-05-25 20:53] LABS: D Dimer High Sensitivity < 150 NG/ML
[2025-05-25 22:10] VITALS: BP 121/82; PULSE 65; RESP 16; TEMP 36.7; O2SAT 99
== END 2025-05-25 22:12 | disposition home or self-care (01) ==
PROVIDERS: Physician Assistant; Emergency Provider Emergency Medicine; PCP Internal Medicine
DX: O26.91 Pregnancy related conditions, unspecified, first trimester (principal); R07.89 Other chest pain; R10.22 Pelvic and perineal pain left side; Z79.899 Other long term (current) drug therapy; Z3A.01 Less than 8 weeks gestation of pregnancy
CPT/HCPCS: 36415; 76801; 76817; 80048; 80076; 81001; 81003; 83690; 83735; 84484; 84702; 85025; 85379; 93005; 99284; 99285

== ENCOUNTER → 2025-05-25 16:18 | Outpatient (BNV) | payer OTHER, SELFPAY | PROVIDERS: Emergency Provider Emergency Medicine; PCP Internal Medicine; Visit Provider Internal Medicine | DX: R00.0 Tachycardia, unspecified (principal) | CPT/HCPCS: 93010 ==

== ENCOUNTER → 2025-05-25 18:20 | Outpatient (BNV) | payer OTHER, SELFPAY | PROVIDERS: Emergency Provider Emergency Medicine; PCP Internal Medicine; Visit Provider Radiology Diagnostic Radiology | DX: O26.891 Other specified pregnancy related conditions, first trimester (principal); Z3A.01 Less than 8 weeks gestation of pregnancy | CPT/HCPCS: 76801; 76817 ==

== ENCOUNTER 2025-06-22 00:06 | Emergency (ER) | payer OTHER, SELFPAY ==
--- NOTE | ~2025-06-22 | US_ITS ---
CLINICAL HISTORY: RUQ --- Additional Notes or Special Instructions: Assess kidney for hydro please US abdomen limited Comparison: CT/SR - CT ABDOMEN PELVIS W IV CON - 02/28/25 18:19 EDT Findings: There is a gallstone in the gallbladder neck. No gallbladder wall thickening. No pericholecystic fluid. The psychiatry adult physician reports mild tenderness in the right upper quadrant consistent with mild sonographic Kim's sign. Normal liver and pancreas. Right kidney unremarkable. No biliary ductal dilatation. IMPRESSION: 1. Positive sonographic Kim's sign with tiny gallstone in the gallbladder neck. No evidence of cholecystitis. 2. No urinary tract calculus or hydronephrosis. This document has been electronically signed by: Otis Fisher MD on 06/22/2025 01:46:59
[2025-06-22 00:12] VITALS: BP 107/62; PULSE 96; RESP 18; TEMP 36.8; O2SAT 100; BMI 29.2
--- NOTE | 2025-06-22 00:27 | ED_ITS ---
HPI - General Adult General Chief complaint: Abdominal Pain Stated complaint: Stomach Pain Time Seen by Provider: 06/22/25 00:23 Source: patient Mode of arrival: ambulatory Limitations: no limitations History of Present Illness ED Provider: Dr. Siegel HPI narrative: 29-year-old female 10 weeks presented hospital today for evaluation of right flank pain that has been persistent and radiates to the front her abdomen. Began 2 hours ago. Patient stated that she has this in the past which resolved on its own however she noticed that this pain has been persistent. No dysuria no increased urinary frequency. Related Data Home Medications ?Medication ?Instructions ?Recorded ?Confirmed amitriptyline 25 mg tablet 25 mg PO BEDTIME 12/17/22 0 12/17/22 cetirizine 10 mg tablet 10 mg PO DAILY 12/17/2211/23 Previous Rx's ?Medication ?Instructions ?Recorded metoprolol succinate 25 mg 25 mg PO DAILY #15 tabs tablet,extended release 24 hr (Toprol XL) amitriptyline 25 mg tablet 25 mg PO BEDTIME #30 tabs 0 01/03/24 cetirizine 10 mg tablet 10 mg PO DAILY PRN allergy 0 01/03/24 symptoms #30 tabs cyclobenzaprine 10 mg tablet 10 mg PO TID PRN muscle s pasm #14 01/03/24 tabs doxycycline monohydrate 100 mg 100 mg PO BID #14 caps 01/03/24 capsule metoprolol succinate 25 mg 25 mg PO DAILY #30 tabs 06/17 tablet,extended release 24 hr nirmatrelvir 300 mg (150 mg See Rx Instructions PO .CO MPLEX 03/22/24 x2)-ritonavir 100 mg tablet,dose #30 ea pack (Paxlovid) ondansetron 4 mg disintegrating 4 mg PO Q8H PRN nausea and 03/22/24 tablet vomiting #7 tabs acetaminophen 325 mg tablet 975 mg (3 x 325 mg) PO Q4H PRN 02/28/25 (Tylenol) fever or pain #30 tabs ibuprofen 600 mg tablet 600 mg PO Q8H PRN fever or p ain 02/28/25 #30 tabs ondansetron 4 mg disintegrating 4 mg PO Q12H PRN nause a and 02/28/25 tablet vomiting 5 days #10 tabs Allergies Allergy/AdvReac Type Severity Reaction Status Date / Time pollen extracts Allergy Mild Itchy Eyes Verified 06/22/25 00:14 Review of Systems 2 Review of Systems: Pertinent review of systems as mentioned in HPI. All other system otherwise negative. [facility] Past Medical History [facility] Narrative: Medical History Low blood pressure Surgical History S/P abdominoplasty Social History Social History Alcohol intake: current Alcohol intake frequency: does not drink Patient Tobacco Use Status: Never used Tobacco service: No Current occupational status: unemployed Physical Exam ED Exam Exam: General: Pleasant, no distress, interacting appropriately Head: Normacephalic, atraumatic Gastrointestinal: Soft, non distended, right-sided flank pain Neurological: Awake and alert, no facial droop noted Skin: Warm and dry Psychiatric: Appropriate mood and thoughts Vital Signs: Vital Signs - 24 hr 06/22/25 00:12 06/22/25 01:56 Temperature 98.2 F Pulse Rate 96 100 Respiratory Rate 18 18 Blood Pressure 107/62 126/87 Pulse Oximetry 100 100 Oxygen Delivery Method Room Air Room Air BMI result Body Mass Index 29.2 Course Course Course Narrative: 2:42 AM 06/22/2025 ([facility]iver[facility] DAVE): Patient was signed out to this provider at shift change by Dr. Siegel, in summary the patient is a 29-year-old female currently 10 weeks presenting to the ED for evaluation of nausea and right-sided abdominal pain which began tonight. Patient was found to have positive Kim's on exam and sonographic Kim's, ultrasound showed multiple gallstones near the neck of the gallbladder without evidence of acute cholecystitis. Patient however does have a mildly elevated white count [id number], was treated prophylactically with ceftriaxone and Flagyl as well as Tylenol and IV fluid hydration. The patient has no LFT abnormalities, however given the persistent pain with cholelithiasis the patient's case was discussed with surgery, surgery recommended transfer due to the patient's status. Patient's case was discussed with [facility] by Dr. Siegel, awaiting call back upon sign out. At this time the patient's case has been discussed with Dr. Valenzuela from the [facility] ED as surgeon Dr. Souza was unavailable, tied up in the OR. Patient has been accepted to [facility] ED by ground ambulance by Dr. Valenzuela. We will facilitate transport. Medications Administered Discontinued Medications Generic Name Dose Route Start Last Admin Trade Name Melissa PRN Reason Stop Dose Admin Acetaminophen 975 mg 06/22/25 00:31 06/22/25 01:51 Acetaminophen 325 Mg Tablet PO 06/22/25 00:32 975 mg ONCE ONE Administration Lactated Ringer's 1,000 mls @ 999 mls/hr 06/22/25 01:30 06/22/25 03:35 Lr IV 06/22/25 02:30 Infused .Q1H1M SONAM Infusion Ceftriaxone Sodium 1 gm/ 50 mls @ 100 mls/hr 06/22/25 01:25 06/22/25 02:18 Sodium Chloride IV 06/22/25 01:54 Infused ONCE ONE Infusion Metronidazole 500 mg in 100 mls @ 100 mls/hr 06/22/25 01:25 06/22/25 03:24 Flagyl IV 06/22/25 02:24 Infused ONCE ONE Infusion Medical Decision Making Medical Decision Making MDM Narrative: 29-year-old female 10 week presented hospital today for evaluation of right-sided flank pain that has presenting persistent. Patient does have some right upper quadrant tenderness on palpation of right flank pain. We will plan to obtain a ultrasound to assess her gallbladder and right kidney for any signs of hydronephrosis. UA will be obtained. Basic lab work will be obtained for the patient as well. A dose of Tylenol will be given to the patient. Patient's has been taking Motrin at home for the pain. Instruct patient to avoid taking Motrin as this may affect her . Patient's understand. Patient was found to have cholelithiasis located in the neck of the gallbladder. I did discuss the case with Dr. David the general surgeon. Does not feel comfortable with taking care of the patient is here due to her being 10 weeks . A call was made out to [facility]. Pending discussion with General surgery at [facility] at this time. I did discuss with the transfer center. They stated that patient has nonviable due to 10 week at this time. They do not think OBGYN needs to be involved from their perspective. Patient will be signed out to oncoming provider pending discussion with the general surgery team at [facility]. IV ceftriaxone IV Flagyl was given to patient. Of the ultrasound did not show any signs of cholecystitis patient does have white count of 13. Blood culture and lactic acid were obtained. Lactic acid is not elevated. Differential Diagnosis Differential Diagnoses: The differential diagnosis associated with the presentation includes Cholecystitis, kidney stone, pyelonephritis, UTI Consult Healthcare Provider Management of the patient was discussed with: Armament Repairer (Dr. David) Lab Data MDM Lab Attestation statement: I reviewed the patient's lab results. 06/22/25 00:22 06/22/25 00:22 Labs: Lab Results 06/22/25 06/22/25 06/22/25 Range/Units 00:22 01:48 02:06 WBC 13.0 H (4.8-10.8) X10*3/uL RBC 4.36 (4.20-5.50) X10*6/uL Hgb 11.9 L (12.0-16.0) g/dl Hct 35.5 L (37.0-47.0) % MCV 81.4 (80.0-98.0) fL MCH 27.3 (27.0-33.0) pg MCHC 33.5 (31.0-35.0) g/dl RDW 14.5 (11.0-16.0) % Plt Count 309 (160-400) X10*3/uL MPV 10.4 (9.4-12.3) fL Immature Gran % (Auto) 0.3 (0.0-0.4) % Neut % (Auto) 63.0 (45-73) % Lymph % (Auto) 29.1 (20-40) % Wolfe % (Auto) 6.3 (2-11) % Eos % (Auto) 1.1 (0-4) % Baso % (Auto) 0.2 (0-2) % Lymph # (Auto) 3.8 (1.2-4.9) X10*3/uL Wolfe # (Auto) 0.8 (0.1-1.2) X10*3/uL Eos # (Auto) 0.1 (0.0-0.4) X10*3/uL Baso # (Auto) 0.0 (0.0-0.2) X10*3/uL Abs Immat Gran (auto) 0.04 H (0.00-0.03) X10*3/uL Absolute Neuts (auto) 8.2 (2.0-8.3) x10*3/uL Absolute Nucleated RBC 0.000 (0.0-0.012) X10*3/uL Nucleated RBC % (auto) 0.0 (0.0-0.2) /100WBC Sodium 137 (135-145) mmol/L Potassium 3.9 (3.3-5.1) mmol/L Chloride 108 (96-108) mmol/L Carbon Dioxide 19 L (22-29) mmol/L Anion Gap 14 (12-20) BUN 7 L (9-16) mg/dL Creatinine 0.61 (0.5-1.4) mg/dL Estim Creat Clear Calc 124.4 Estimated GFR > 60 Random Glucose 103 (60-115) mg/dL Lactic Acid 1.3 (0.5-2.0) mmol/L Calcium 9.5 (8.4-10.2) mg/dL Total Bilirubin 0.2 (0.0-1.0) mg/dL AST 31 (5-31) U/L ALT 44 H (0-31) U/L Alkaline Phosphatase 64 (39-117) U/L Total Protein 7.2 (6.5-8.0) g/dL Albumin 4.2 (3.5-5.0) g/dL Beta HCG, Quant 764254 mIU/mL Urine Color Yellow Urine Appearance Clear Urine pH 5.5 (5.0-9.0) Ur Specific [place] 1.010 (1.005-1.025) Urine Protein Negative (Neg-Trace) mg/dL Urine Glucose (UA) Negative (Negative) mg/dL Urine Ketones Negative (Negative) mg/dL Urine Blood Negative (Negative) Urine Nitrite Negative (Negative) Ur Leukocyte Esterase Negative (Negative) Urine RBC 0-2 (0-2) /HPF Urine WBC 0-5 (0-5) /HPF Ur Squamous Epith Cells 3-5 (0-2) /HPF Urine Bacteria Trace (None Seen) Hyaline Casts 0-2 (0-2) /LPF Independent Interpretation I performed an independent interpretation of an: Ultrasound Radiology Impression Discussion of test interpretation with radiology: I have reviewed the radiologist's reading. Discharge Plan Discharge Clinical Impression: Symptomatic cholelithiasis Patient Disposition: [facility] Transfer Details: [facility] ED - Dr. Valenzuela Prescriptions: No Action cetirizine 10 mg tablet 10 mg PO DAILY amitriptyline 25 mg tablet 25 mg PO BEDTIME metoprolol succinate [Toprol XL] 25 mg tablet extended release 24 hr 25 mg PO DAILY Qty: 15 0RF doxycycline monohydrate 100 mg capsule 100 mg PO BID Qty: 14 0RF metoprolol succinate 25 mg tablet extended release 24 hr 25 mg PO DAILY Qty: 30 0RF amitriptyline 25 mg tablet 25 mg PO BEDTIME Qty: 30 0RF cetirizine 10 mg tablet 10 mg PO DAILY PRN (Reason: allergy symptoms) Qty: 30 0RF cyclobenzaprine 10 mg tablet 10 mg PO TID PRN (Reason: muscle spasm) Qty: 14 0RF Paxlovid 300 mg (150 mg x 2)-100 mg tablets,dose pack See Rx Instructions .ROUTE .COMPLEX Qty: 30 0RF Rx Instructions: take TWO 150 mg tablets of nirmatrelvir with ONE 100 mg tablet of ritonavir twice daily for 5 days ondansetron 4 mg tablet,disintegrating 4 mg PO Q8H PRN (Reason: nausea and vomiting) Qty: 7 0RF ondansetron 4 mg tablet,disintegrating 4 mg PO Q12H PRN (Reason: nausea and vomiting) 5 Days Qty: 10 0RF acetaminophen [Tylenol] 325 mg tablet 975 mg PO Q4H PRN (Reason: fever or pain) Qty: 30 0RF ibuprofen 600 mg tablet 600 mg PO Q8H PRN (Reason: fever or pain) Qty: 30 0RF Referrals: [facility] [Outside] Maulik Grande MD [Primary Care Provider, Medical] Interventions: Acute Care Transfer Worksheet (ED) Last Done: 06/22/25 03:34 Discharge Date/Time: 06/22/25 03:39 Print Language: Arabic
[2025-06-22 00:29] LABS: MANUAL DIFF FLAG NO
--- OUTSIDE RECORDS SUMMARY | 2025-06-22 00:29 | XMS_ITS | Clinical Summary ---
Author Organization [facility] it Address [address] [place] [address] Care Team Providers Care Fire Hydrant Operator Name Role Phone Elaina Lucero MD Primary Care Provider [phone] Immunizations Immunization Administration Dates Next Due Pfizer SARS-CoV-2 COVID-19, mRNA, LNP-S, preservative free 05/25/2021,05/02/2021 Surgical History Surgery Date Site/Laterality Comments BELT ABDOMINOPLASTY 07/2020 PROCEDURE: HISTORICAL TUMMY TUCK; COMMENT: in [place] Medical History Medical History Date Comments Anemia [...] RESULTING AGENCY - 10/20/2021 3:05 PM EDT [id number] THINPREP PAP, IMAGED: NEGATIVE FOR SQUAMOUS INTRAEITHELIAL [...] Recently Relevant to Health Maintenance Care Teams Fire Hydrant Operator Relationship Specialty Start Date End Date Elaina Lucero MD PCP - General Internal Medicine 07/01/20
--- OUTSIDE RECORDS SUMMARY | 2025-06-22 00:29 | XMS_ITS | Encounter Summary ---
Author Organization [employer] Address [address] [place] [address] Care Team Providers Care Tower Erector Name Role Phone Maulik Grande MD Primary Care Prov ider Reason for Visit * Reason Onset Date Comments Nurse Triage 11/27/2024 Encounter Details Date Type Department Care Team ([facility] st Contact Info) Description 11/27/2024 Telephone [facility] [address] [place] [address] Maulik Grande MD [address] [place] [address] Nurse Triage Social History Tobacco Use Types [...] neck due to allergies. Contact pt at [phone] documented in this encounter Plan of Treatment Upcoming Encounters Date Type Department Care Team ([facility] st Contact Info) Description 07/31/2025 10:15 AM EST Telemedicine [facility] MED & PEDS [address] [place] [address] Maulik Grande MD [address] [place] [address] documented as of this encounter Visit Diagnoses Not on filedocumented in this encounter Additional Health Concerns Assessment Noted Time PHQ-9 Depression Total Score: 4 07/02/20 24 1:35 PM EST documented as of this encounter Care Teams Tower Erector Relationship Specialty Start Date End Date Maulik Grande MD [address] [place] [address] PCP - General Internal Medicine 02/01/24 documented as of this encounter
--- OUTSIDE RECORDS SUMMARY | 2025-06-22 00:29 | XMS_ITS | Clinical Summary ---
Author Organization [employer] Address [address] [place] [address] Care Team Providers Care Labor Economics Teacher Name Role Phone Maulik Grande MD Primary [...] times daily. 90 mL 1 5 Active multivitamin () 27-0.8 MG tablet Take 1 tablet by mouth Once per day. 30 tablet 11 5 Active Active Problems Problem Noted Date Diagnosed Date Palpitations 05/27/2025 Assessment & Plan (05/27/2025 3:10 PM EST): Told to follow up cardiology, most likely anxiety related 6 weeks gestation of 05/27/2025 Assessment & Plan (05/27/2025 3:11 PM EST): Will renew vitamin, no bleeding or pelvic pain reported, follow up ob- ob gyn MARLENE (generalized anxiety disorder) 05/23/2025 Anxiety 04/29/2025 Assessment & Plan (05/27/2025 3:09 PM EST): Mostly related to job issues, no suicidal/homicidal ideas, followed by , will renew FMLA for 3 months Assessment & Plan (04/29/2025 2:35 PM EDT): [...] could not be finished. Will place referral Comments Yes Encounters * This document contains information received from the source organization and may not represent a complete record from that organization. Date Type Department Care Team Description 05/27/2025 3:30 PM EST Telemedicine [facility] MED & PEDS [address] [place] [address] Maulik Grande MD Tachycardia (Primary Dx); Anxiety; Palpitations; 6 weeks gestation of 05/27/2025 Travel 05/27/2025 Telephone [facility] MED & PEDS [address] [place] [address] Maulik Grande MD Nurse Triage 04/29/2025 1:15 PM EDT Telemedicine [facility] MED & PEDS [address] [place] [address] Maulik Grande MD Anxiety (Primary Dx) 04/29/2025 Travel from Last 3 Months Family History Medical [...] Access Q2 Not on file 06/18/2024 Comments Yes Sex and Gender Information Value Date Recorded [...] 03/12/2025 10:31 AM EDT Plan of Treatment Upcoming Encounters Date Type Department Care Team (Late st Contact Info) Description 07/31/2025 10:15 AM EST Telemedicine [facility]S [address] [place] [address] Maulik Grande MD [address] [place] [address] Health Maintenance Due Date Last Done Comments [...] Procedure Name Priority Date/Time Associated Diagnosis Comments D DIMER HIGH SENSITIVITY Routine 05/25/2025 7:57 PM EDT US OB PELVIS TRANSVAGINAL Routine 05/25/2025 7:56 PM EDT URINALYSIS, COMPLETE, WITH REFLEX TO CULTURE Routine 05/25/2025 7:47 PM EDT HM PAP/HPV Routine 10/08/2021 1:40 PM EDT from Last 3 Months or Most Recently Relevant to Health Maintenance Results * D Dimer High Sensitivity (05/25/2025 7:57 PM EDT) D Dimer High Sensitivity <150 NG/ML [facility] Comment:D-DIMER HS REFERENCE RANGENote: Our assay reports D-Dimer Units (D- DU).The cut-off value for venous thromboembolic (VTE) disease is230 ng/mL. This value has a very high negative predictivevalue when the patient has a low to moderate clinicalprobability of VTE.The upper limit of normal is 243 ng/mL. 05/25/2025 7:57 PM EDT 05/25/2025 8:00 PM EDT us Generic External Data Provider LAB BLOOD ORDERAB LES Final Result [facility] [address] [place] [phone] * US OB Pelvis with Transvaginal (05/25/2025 7:56 PM EDT) Anatomical Region Laterality Modality Pelvis Ultrasound 05/25/2025 7:56 PM EDT Narrative 05/25/2025 7:58 PM EDT [address] [address] Ultrasound Report Signed Patient: Wanda Ochoa MR #: [id number] : 1995 Acct:[id number] Age/Sex: 29 / F ADM Date: 05/25/25 Loc: HO.ED Attending Dr: Ordering Physician: Gloria Cueto Date of Service: 05/25/25 Procedure(s): US OB pelvic and transvaginal Accession Number(s): [id number] cc: Maulik Grande MD; Gloria Cueto Reason for Exam: abd pain +preg CLINICAL HISTORY: abd pain +preg US OB 1st Trimester transabdominal and transvaginal with Doppler Comparison: CT/SR - CT ABDOMEN PELVIS W IV CON - 02/28/25 18:[address] - CT ABDOMEN PELVIS W IV CON - 02/28/25 18:08 EDT Findings: Single intrauterine . MSD: 1.1 cm. CRL: 4.8 mm. pole is not well seen. EGA: 6 weeks, 1 day. LALY: January 17, 2026. Previously established gestational age: N/A . Normal yolk sac . cardiac activity can not be obtained. No subchorionic bleed. Right ovary 2.1 x 2.9 x 2.3 cm. Left ovary 2 x 3.1 x 1.7 cm. Normal color Doppler with arterial/venous spectral tracing of both ovaries. IMPRESSION: 1. Single intrauterine estimated 6 weeks, 1 day gestational age by today's ultrasound criteria. Continued follow up is recommended to document viability. 2. No evidence of ovarian torsion. This document has been electronically signed by: Lucio Paredes MD on 05/25/2025 19:56:03 Dictated By: Lucio Paredes MD Signed By: <Electronically signed by Lucio Paredes MD in OV> 05/25/251956 DD/ 55 TD/TT: 05/25/251955 Employee Development Specialist: Procedure Note Donotuseinterpreter, Image - 05/25/[address] [address] Ultrasound Report Signed Patient: Franc Ochoa #: [id number] : 1995Acct:[id number] Age/Sex: 29 / FADM Date: 05/25/25 Loc: HO.ED Attending Dr: Ordering Physician: Gloria Cueto Date of Service: 05/25/25 Procedure(s): US OB pelvic and transvaginal Accession Number(s): [id number] cc: Maulik Grande MD; Gloria Cueto Reason for Exam: abd pain +preg CLINICAL HISTORY: abd pain +preg US OB 1st Trimester transabdominal and transvaginal with Doppler Comparison: CT/SR - CT ABDOMEN PELVIS W IV CON - 02/28/25 18:[address] - CT ABDOMEN PELVIS W IV CON - 02/28/25 18:08 EDT Findings: Single intrauterine . MSD: 1.1 cm. CRL: 4.8 mm. pole is not well seen. EGA: 6 weeks, 1 day. LALY: January 17, 2026. Previously established gestational age: N/A . Normal yolk sac . cardiac activity can not be obtained. No subchorionic bleed. Right ovary 2.1 x 2.9 x 2.3 cm. Left ovary 2 x 3.1 x 1.7 cm. Normal color Doppler with arterial/venous spectral tracing of both ovaries. IMPRESSION: 1. Single intrauterine estimated 6 weeks, 1 day gestational age by today's ultrasound criteria. Continued follow up is recommended to document viability. 2. No evidence of ovarian torsion. This document has been electronically signed by: Lucio Paredes MD on 05/25/2025 19:56:03 Dictated By: Lucio Paredes MD Signed By: <Electronically signed by Lucio Paredes MD in OV> 05/25/251956 DD/ 55 TD/TT: 05/25/251955 Employee Development Specialist: us [facility] External Provider IMG US PROCEDURES Edited Result - Final * (ABNORMAL) Urinalysis, Complete, with Reflex to Culture (05/25/2025 7:47 PM EDT) Color Urine Yellow [facility] Appearance Urine Clear [facility] PH 6.5 5.0 - 9.0 [facility] Glucose Urine UA Negative Negative mg/dL [facility] Urine Blood Negative Negative [facility] Specific [place] - Urine >=1.030(H) 1.005 - 1.025 [facility] Urine Protein Negative Neg-Trace mg/dL [facility] Urine Ketones Negative Negative mg/dL [facility] Nitrite Urine Negative Negative [facility] Leukocyte Esterase Urine Trace(A) Negative [facility] RBC Urine 0-2 0 - 2 /HPF [facility] Urine WBC 0-5 0 - 5 /HPF [facility] Urine Squamous Epithelial Cell 6-10 0 - 2 /HPF [facility] Urine Bacteria 1+ None Seen [facility] Hyaline Casts, Urine 0-2 0 - 2 /LPF [facility] 05/25/2025 7:47 PM EDT 05/25/2025 7:50 PM EDT Narrative [facility] - 05/25/2025 8:20 PM EDT Urine, Clean Catch us Generic External Data Provider LAB URINE ORDERAB LES Final Result [facility] [address] [place] [address] [phone] * PAP/HPV (10/08/2021 1:40 PM EDT) Historical Provider HEALTH MAINTENANCE Final Result from Last 3 Months or Most Recently Relevant to Health Maintenance Insurance [facility] Level [employer] 2 Care Teams Labor Economics Teacher Relationship Specialty Start Date End Date SkyMaulik Miles MD [address] [place] [id number] PCP - General Internal Medicine 02/01/24
--- OUTSIDE RECORDS SUMMARY | 2025-06-22 00:29 | XMS_ITS | Encounter Summary ---
Author Organization [employer] Address [address] [place] [address] Care Team Providers Care Caustic Purification Operator Name Role Phone Maulik Grande MD Primary Care Prov ider Encounter Details Date Type Department Care Team (Late Contact Info) Description 05/09/2024 Orders Only [facility] [address] [place] [address] Provider, MD Andrew Social History Tobacco Use [...] as of this encounter Plan of Treatment Upcoming Encounters Date Type Department Care Team (Late Contact Info) Description 07/31/2025 10:15 AM EST Telemedicine [facility] [address] [place] [address] Maulik Grande MD [address] [place] [address] documented as of this encounter Procedures Procedure Name Priority Date/Time Associated Diagnosis Comments HM PAP/HPV Routine 10/08/2021 1:40 PM EDT documented in this encounter Results * HM PAP/HPV (10/08/2021 1:40 PM EDT) Historical Provider HEALTH MAINTENANCE Final Result documented in this encounter Visit Diagnoses Not on filedocumented in this encounter Care Teams Caustic Purification Operator Relationship Specialty Start Date End Date Maulik Grande MD [address] [place] [id number] PCP - General Internal Medicine 02/01/24 documented as of this encounter
[2025-06-22 00:30] LABS: Hematocrit 35.5 % (37.0-47.0); Hemoglobin 11.9 g/dl (12.0-16.0); Imm Gran Abs Auto 0.04 X10*3/uL (0.00-0.03); Imm Gran Pct Auto 0.3 % (0.0-0.4); Lymphocytes Absolute Auto 3.8 X10*3/uL (1.2-4.9); Mean Corpuscular HGB Conc 33.5 g/dl (31.0-35.0); Mean Corpuscular Hemoglobin 27.3 pg (27.0-33.0); Mean Corpuscular Volume 81.4 fL (80.0-98.0); NRBC Abs Auto 0.000 X10*3/uL (0.0-0.012); NRBC Pct Auto 0.0 /100WBC (0.0-0.2); Platelet Count 309 X10*3/uL (160-400); Red Blood Count 4.36 X10*6/uL (4.20-5.50); White Blood Count 13.0 X10*3/uL (4.8-10.8)
[2025-06-22 00:50] LABS: Alanine Aminotransferase 44 U/L (0-31); Albumin Level 4.2 g/dL (3.5-5.0); Alkaline Phosphatase 64 U/L (39-117); Anion Gap 14 (12-20); Aspartate Amino Transferase 31 U/L (5-31); Blood Urea Nitrogen 7 mg/dL (9-16); Calcium 9.5 mg/dL (8.4-10.2); Carbon Dioxide 19 mmol/L (22-29); Chloride 108 mmol/L (96-108); Creatinine Clr Calc Pharmacy 124.4; Estimated Glomerular Filt Rate > 60; Potassium 3.9 mmol/L (3.3-5.1); Sodium 137 mmol/L (135-145); Total Protein 7.2 g/dL (6.5-8.0)
--- NOTE | 2025-06-22 00:59 | PC.NURSE ---
pt off unit for U/S. ambulating with steady gait
[2025-06-22] MEDS: Lactated Ringers 1,000 ML 999 ML IV (01:50)
[2025-06-22 01:56] VITALS: BP 126/87; PULSE 100; RESP 18; O2SAT 100
[2025-06-22] MEDS: metroNIDAZOLE/NS 500 MG/100 ML PIGGYBACK 100 MG IV (02:21)
[2025-06-22 02:24] LABS: Appearance Urine Clear; Glucose Urine UA Negative (Negative); PH 5.5 (5.0-9.0); Specific Gravity - Urine 1.010 (1.005-1.025)
[2025-06-22 03:05] VITALS: BP 109/67; PULSE 91; RESP 18; TEMP 36.8; O2SAT 100
--- NOTE | 2025-06-22 03:33 | PC.NURSE ---
multiple attempts to call [facility] ED for nurse to nurse report. no answer each time. EMS here for transfer, given report.
[2025-06-22 03:34] VITALS: BP 109/67; PULSE 91; RESP 18; TEMP 36.8; O2SAT 100
== END 2025-06-22 03:39 | disposition short-term general hospital (02) ==
PROVIDERS: Emergency Provider Student in an Organized Health Care Education/Training Program; PCP Internal Medicine
DX: O26.891 Other specified pregnancy related conditions, first trimester (principal); K80.20 Calculus of gallbladder without cholecystitis without obstruction; R10.9 Unspecified abdominal pain; Z3A.10 10 weeks gestation of pregnancy
CPT/HCPCS: 36415; 76705; 80053; 81001; 83605; 84702; 85025; 87040; 96365; 96367; 99285; J0696; J1836; J7120

== ENCOUNTER → 2025-06-22 00:31 | Outpatient (BNV) | payer OTHER, SELFPAY | PROVIDERS: Emergency Provider Student in an Organized Health Care Education/Training Program; PCP Internal Medicine; Visit Provider Radiology Diagnostic Radiology | DX: R10.11 Right upper quadrant pain (principal) | CPT/HCPCS: 76705 ==